=== PATIENT | female | born 1930 | race Caucasian/White ===

== ENCOUNTER 2018-01-26 13:58 | Inpatient (IN) | payer OTHER ==
--- NOTE | 2018-01-26 14:45 | PDOC ---
History of Present Illness - General Chief Complaint: Injury Stated Complaint: fall Time Seen by Provider: 01/26/18 14:01 History Source: Patient Exam Limitations: No Limitations - History of Present Illness Initial Comments: 01/26/18 14:40 87y F hx of afib on coumadin, htn, hl, aortic valve replacement presents sp fall 2 weeks ago and presents for evaluation by PMD as she has had persistent L knee pain and had some diffculty ambulating. The patient states that she was opening the refrigerator door, fell backwards hitting her head there was no LOC , another son was beside her immediately although it was not witnessed. The patient denies any prior chest pain, shortness of breath, headache, denies dizziness, focal weakness, fever, chills, back pain, urinary or bowel symptoms. The patient normally ambulates with a walker she needed some assistance to stand but she was otherwise asymptomatic, upon her head which is since resolved. The patient with a follow-up with her primary care doctor who sent the patient for evaluation. Patient denies any associated headache, dizziness, nausea, vomiting, neck pain, back pain, numbness, tingling, weakness, shortness of breath, cp, abd pain dsuria, diarrhea, frequency. pt notse some L leg pain that has been improving. PMD Dr. Lagunas Past History - Past Medical History Allergies/Adverse Reactions: Allergies Allergy/AdvReac Type Severity Reaction Status Date / Time No Known Allergies Allergy Verified 01/26/18 14:12 Home Medications: Ambulatory Orders Amlodipine Besylate [Norvasc -] 5 mg PO DAILY 01/26/18 Atorvastatin Ca [Lipitor] 20 mg PO HS 01/26/18 Lisinopril [Zestril] 5 mg PO DAILY 01/26/18 Metoprolol Tartrate [Lopressor] 50 mg PO HS 01/26/18 Metoprolol Tartrate [Lopressor] 100 mg PO DAILY 01/26/18 Warfarin Sodium [Coumadin] 2 mg PO DAILY 01/26/18 Cardiac Disorders: Yes (afib) COPD: No HTN: Yes - Surgical History Cardiac Surgery: Yes (aortic valve replacement) - Suicide/Smoking/Psychosocial Hx Smoking History: Never smoked Hx Alcohol Use: No Drug/Substance Use Hx: No Substance Use Type: None Review of Systems - Review of Systems Able to Perform ROS?: Yes Comments:: 01/26/18 14:50 Constitutional - no reported Fever, Chills, HEENT: no reported vision changes, sore throat Respiratory: no reported cough, sob, hemoptysis Cardiac: no reported chest pain, palpitations, light headedness, leg swelling Abd/GI: no reported abd pain, nausea, vomiting, blood per rectum, melena, diarrhea : no reported dysuria, frequency, discharge Musculskelatal - no reported back pain, joint swelling skin - no reported bruising, erythema, rash neurological: no reported headache, numbness, focal weakness, tingling, ataxia, hematologic: no reported easy bruising, easy bleeding *Physical Exam - Vital Signs Last Vital Signs Temp Pulse Resp BP Pulse Ox 98.1 F 85 18 141/81 100 01/26/18 13:58 01/26/18 13:58 01/26/18 13:58 01/26/18 13:58 01/26/18 13:58 - Physical Exam Comments: 01/26/18 14:51 GENERAL: The patient is awake, alert, and fully oriented, Nontoxic - in no acute distress. HEAD: Normocephalic, atraumatic. EYES: extraocular movements intact, sclera anicteric, conjunctiva clear. ENT: Normal voice, Moist mucous membranes. NECK: Normal range of motion, supple LUNGS: Breath sounds equal, clear to auscultation bilaterally. No wheezes, no rhonchi, no rales. HEART: Regular rate and rhythm, normal S1 and S2 without murmur, rub or gallop. ABDOMEN: Soft, nontender, normoactive bowel sounds. No guarding, no rebound. . No CVA tenderness EXTREMITIES: Normal range of motion, no edema. No clubbing or cyanosis. No cords, erythema, or tenderness. mild R leg weakness NEUROLOGICAL: No facial assymetry, Normal speech, PSYCH: Normal mood, normal affect. SKIN: Warm, Dry, normal turgor, Back: No midline tenderness to the cervical, thoracic or lumbar spine Musculoskelatal: FROM of b/l shoulders, elbows, wrist. FROM of hips, knees, ankles - No signs of ecchymosis, erythema, or crepitus noted on palpation extremities, chest wall, clavicals, ribs, back. mild ttp to L knee, normal ROM Moderate Sedation - Procedure Monitoring Vital Signs: Procedure Monitoring Vital Signs Temperature 98.1 F 01/26/18 13:58 Pulse Rate 85 01/26/18 13:58 Respiratory Rate 18 01/26/18 13:58 Blood Pressure 141/81 01/26/18 13:58 O2 Sat by Pulse Oximetry (%) 100 01/26/18 13:58 Heart Score/ECG Review - ECG Impressions Comment:: 01/26/18 19:37 Twelve-lead EKG was performed and reviewed by me. irrgularly irregular rate of [address] wave changes ED Treatment Course - LABORATORY CBC & Chemistry Diagram: 01/26/18 16:06 01/26/18 16:06 Medical Decision Making - Critical Care Time Total Critical Care Time (minutes): 35 Critical Care Statement: The care of this patient involved high complexity decision making to prevent further life threatening deterioration of the patient 's condition and/or to evaluate & treat vital organ system(s) failure or risk of failure. - Medical Decision Making 01/26/18 14:52 87y F hx of afib on coumadin persents s/p fall 2 weeks ago, sent to ED for evaluation sp fall. The pt has no complaints otherwise denies any headache, n/v , numbness/tingling/weakness, pain of any sort. son endorses pt has diffulty walking due to disocmfort in the L knee but has been getting beter. will btain ct head, ekg, ua will reaessess, anticpate dc with pmd fu 01/26/18 16:[address] shows a large subdural with shift pt neuro intact suspect chronic there is a small acute area of blood will obtain labs and INR case dw dr Lagunas will admit for further mangaement will admit under dr. Wong service requests consultation with dr. Burton 01/26/18 17:55 the pts INR elevated to 4 will reverse with vitamin K and FFP will admit for further management to ICU at [facility] 01/26/18 18:[address] osei agree with admission for further management awaiting cb from dr. burton 01/26/18 19:[address] burton agree with admission and reversal of INR 01/26/18 19:[address] damon (ICU) agree with admission and accepted to ICU pt still currently asymptomatic unchanged neuro status *DC/Admit/Observation/Transfer Diagnosis at time of Disposition: Elevated INR Subdural hematoma, post-traumatic Qualifiers: Encounter type: initial encounter Loss of consciousness presence/duration: without LOC Qualified Code(s): S06.5X0A - Traumatic subdural hemorrhage without loss of consciousness, initial encounter Atrial fibrillation Qualifiers: Atrial fibrillation type: chronic Qualified Code(s): I48.2 - Chronic atrial fibrillation - Discharge Dispostion Condition at time of disposition: Critical Decision to Admit order: Yes - Referrals Referrals: Terrance See MD [Primary Care Provider] - - Patient Instructions - Post Discharge Activity NIH Stroke Scale - Last Known Well Date/Time & Onset Date Last Known Well: 01/11/18 - Initial Evaluation Level of consciousness: Alert Ask patient the month and their age: Answers both correctly Ask patient to open & close eyes; make fist and let go: Obeys both correctly Best gaze (horizontal eye movement): Normal Visual field testing: No visual field loss Facial paresis (Show teeth/raise eyebrows/close eyes tight): Normal symmetrical movement Motor Function: Left Arm: Normal Motor Function: Right Arm: Normal (extends arm 90 (or 45) degrees for 10 seconds without drift Motor Function: Left Leg: Normal (extends leg 30 degrees for 5 seconds without drift) Motor Function: Right Leg: Drift Limb Ataxia: No ataxia Sensory(Use pinprick test arms,legs,trunk,face/side to side): Normal Best language (Describe picture, name items, read sentences): No Aphasia Dysarthria (read several words): Normal articulation Extinction and Inattention: No abnormality - Total Score NIH Stroke Scale Score: 1
[2018-01-26 15:54] LABS: URINE APPEARANCE Clear; URINE BILIRUBIN Negative (NEGATIVE); URINE COLOR Amber; URINE GLUCOSE (UA) Negative (NEGATIVE); URINE KETONE Negative (NEGATIVE); URINE LEUK ESTERASE 1+ (NEGATIVE); URINE NITRITE Negative (NEGATIVE); URINE PROTEIN Negative (NEGATIVE); URINE UROBILINOGEN 0.2 (0.2-1.0)
[2018-01-26 17:31] LABS: BASO % 0.6 % (0-2.0); EOS % 1.5 % (0-4.5); HEMATOCRIT 40.8 % (32.4-45.2); HEMOGLOBIN 13.2 GM/dl (10.7-15.3); LYMPH % 28.3 % (8-40); MCH 25.3 pg (25.7-33.7); MCHC 32.2 g/dl (32.0-36.0); MEAN CELL VOLUME 78.6 fl (80-96); MONO % 7.5 % (3.8-10.2); NEUT % 62.1 % (42.8-82.8); PLATELET COUNT 266 K/MM3 (134-434); PROTHROMBIN TIME (PATIENT) 46.2 SEC (10.2-13.0); RBC 5.19 M/mm3 (3.60-5.2); RDW 16.6 % (11.6-15.6); WHITE BLOOD COUNT 7.5 K/mm3 (4.0-10.8)
[2018-01-26 17:32] LABS: INR 4.24 (0.82-1.09)
[2018-01-26 17:36] LABS: ALBUMIN 3.2 g/dl (3.5-5.0); ALK PHOS 98 U/L (32-92); ANION GAP 6 MMOL/L (8-16); BILIRUBIN,TOTAL 0.4 mg/dl (0.2-1.0); BLOOD UREA NITROGEN 23 mg/dl (7-18); CALCIUM 8.8 mg/dl (8.4-10.2); CHLORIDE 100 mmol/L (98-107); CO2 27 mmol/L (22-28); CREATININE 0.9 mg/dl (0.6-1.3); GLUCOSE,RANDOM 91 mg/dl (74-106); POTASSIUM 4.5 mmol/L (3.5-5.1); SGOT/AST 17 U/L (10-42); SGPT/ALT 15 U/L (10-40); SODIUM 133 mmol/L (136-145); TOT PROT 6.8 g/dl (6.4-8.3)
[2018-01-26 17:45] LABS: EPI CELLS FEW /HPF; URINE BACTERIA 3+ /hpf (NEGATIVE); URINE WBC 20-40 (0-5)
[2018-01-26] MEDS ORDERED: PHYTONADIONE 10 MG/1 ML AMP IVPB ONE (17:54)
[2018-01-26] MEDS ORDERED: PHYTONADIONE 10 MG/1 ML AMP ONE (18:19)
--- NOTE | 2018-01-26 23:42 | CONSULT ---
Consult Consult Specialty:: Critical Care Referred by:: Dr. Kumar Reason for Consultation:: Subdural hematoma - History of Present Illness Chief Complaint: left knee pain History of Present Illness: 87F with history of HTN HLD A fib on coumadin aortic valve replacement (Porcine valve per grandson) presents to the [facility] ER at the direction of her PMD Dr. Lagunas for left knee pain and difficulty ambulating. Per Sons and grandsons , who were at bedside helping give the HPI and translate for the patient, she fell 2 weeks ago while trying to open the fridge door. She fell backwards and hit her head. She denies LOC or symptoms of syncope. She did have a bump on the back of her head which has since resolved. She denies nausea vomiting fever chills chest pain SOB blurry vision headaches or urinary symptoms now and at the time of the fall. 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 She was also noted to have a supratherapeutic INR and was given 5mg IVPB Vitamin K and FFP ordered but not given. Per ER chart Dr. Degroot was contacted and he agrees with reversal of INR and ICU admission. Per grandsons and sons she has been getting progressively weaker lately. They can not remember exactly when but in the last few weeks she had an episode where she had trouble finding her words when she woke up in the morning but resolved within a few minutes. She has had trouble ambulating especially in the last couple of weeks. She needs a walker for assistance. The left leg pain has been improving. Patient transferred to [facility] ICU for further management. - History Source History Provided By: Patient, Family Member Limitations to Obtaining History: Language Barrier - Past Medical History Cardio/Vascular: Yes: AFIB (on coumadin), Aortic Stenosis (? s/p bovine AVR), HTN, Hyperlipdemia - Past Surgical History Past Surgical History: Yes: Mastectomy (left), Valve Replacement (aortic ( procine)) - Alcohol/Substance Use Hx Alcohol Use: No - Smoking History Smoking history: Never smoked Home Medications - Allergies Allergies/Adverse Reactions: Allergies Allergy/AdvReac Type Severity Reaction Status Date / Time No Known Allergies Allergy Verified 01/26/18 14:12 - Home Medications Home Medications: Ambulatory Orders Amlodipine Besylate [Norvasc -] 5 mg PO DAILY 01/26/18 Atorvastatin Ca [Lipitor] 20 mg PO HS 01/26/18 Lisinopril [Zestril] 5 mg PO DAILY 01/26/18 Metoprolol Tartrate [Lopressor] 50 mg PO HS 01/26/18 Metoprolol Tartrate [Lopressor] 100 mg PO DAILY 01/26/18 Warfarin Sodium [Coumadin] 2 mg PO DAILY 01/26/18 Family Disease History - Family Disease History Family History: Unable to Obtain (cant remember) Review of Systems - Review of Systems Constitutional: reports: Weakness Eyes: denies: Blurred Vision, Double Vision, Photophobia, Recent Change in Vision HENT: reports: No Symptoms Neck: reports: No Symptoms Cardiovascular: reports: No Symptoms Respiratory: reports: No Symptoms Gastrointestinal: reports: No Symptoms Genitourinary: reports: No Symptoms Breasts: reports: No Symptoms Reported Musculoskeletal: reports: Muscle Weakness Integumentary: reports: No Symptoms Neurological: reports: Weakness. denies: Change in LOC, Change in Speech, Confusion, Dizziness, Syncope Endocrine: reports: No Symptoms Hematology/Lymphatic: reports: No Symptoms Psychiatric: reports: No Symptoms Physical Exam Vital Signs: Vital Signs Temperature 98.1 F 01/26/18 13:58 Pulse Rate 68 01/26/18 22:44 Respiratory Rate 14 01/26/18 22:44 Blood Pressure 130/70 01/26/18 22:44 O2 Sat by Pulse Oximetry (%) 96 01/26/18 19:59 Constitutional: Yes: No Distress, Calm, Obese Eyes: Yes: Conjunctiva Clear, EOM Intact, PERRL, Other (senile arcus bilaterally ) HENT: Yes: Atraumatic, Normocephalic Neck: Yes: Supple, Trachea Midline Cardiovascular: Yes: Pulse Irregular, Murmur (3/6 systolic) Respiratory: Yes: CTA Bilaterally Gastrointestinal: Yes: Normal Bowel Sounds, Soft. No: Tenderness Renal/: No: CVA Tenderness - Left, CVA Tenderness - Right Breast(s): Yes: Left (mastectomy) Edema: RLE: Trace Neurological: Yes: Alert, Cran Nerves II-XII Intact (sensation in the face is intact CN V1 V2 V3. upper and lower extremities sensation intact. upper extremity strength 4/5 for hand ring facer and movement at the elbow and shoulder joint. 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 h/o left breast Ca s/p left mastectomy ? aortic stenosis s/p porcine AVR (family unsure why she had valve replaced) UTI Plan: Admit to ICU s/p 5mg IV vitamin K Will give FFP-4 units ordered by ER but not given yet. Will give now Trend INR Neurosurgery consult Repeat Head CT in AM Keppra 500mg po BID for seizure prophylaxis frequent Neurovascular checks STAT head CT if acute change in mental status UA mildly positive. Will give ceftriaxone after urine culture sent first. Restart home medications Restart Statin -lipitor 20mg po daily restart antihypertensives-norvasc 5mg po daily and lisinopril 5mg po daily Restart metoprolol (Med list given by family shows Metoprolol 100mg po daily and 50mg po HS but Dr. Lagunas ordered 50mg po BID)-will need to be confirmed Hold coumadin rate control PT consult Consider Echo place on 3L nasal cannula as saturation 88-90% on room air. Case discussed with Dr. Spencer CCTime 60min
[2018-01-27 00:27] VITALS: BMI 42.7
[2018-01-27] MEDS: levETIRAcetam 500 MG TABLET (FP) PO SCH ×3 (00:30→21:31)
[2018-01-27] MEDS: METOPROLOL TARTRATE 50 MG TABLET (FP) PO SCH ×3 (00:30→21:31)
[2018-01-27] MEDS: CEFTRIAXONE 1 GM in DEXTROSE 5%-WATER - 50 ML IVPB SCH ×2 (00:40→17:16)
[2018-01-27] MEDS ORDERED: DEXTROSE 5%-WATER - 50 ML IVPB ONE ×2 (01:18→09:50)
[2018-01-27] MEDS ORDERED: cefTRIAXone SODIUM 1 GM VIAL ONE ×2 (01:18→09:50)
[2018-01-27 07:33] LABS: INR 1.23 (0.83-1.09); PROTHROMBIN TIME (PATIENT) 14.6 SEC (9.7-13.0)
[2018-01-27 07:36] LABS: ACTIVATED PTT 28.3 SECONDS (25.2-36.5)
--- NOTE | 2018-01-27 08:10 | PN ---
Physical Exam: SUBJECTIVE: Patient seen and examined at bedside. No acute events overnight. Pt awake and responding to commands. OBJECTIVE: Vital Signs Period Temp Pulse Resp BP Sys/Taylor Pulse Ox Last 24 Hr 97.2 F-98.1 F 68-105 14-19 111-141/61-84 95-100 GENERAL: NAD. Resting comfortably. HEENT: AT/NC. EOMI. KATYA. Dry mucus membranes. Chronic L lid droops. Facial muscles intact. NECK: Trachea midline, full range of motion, supple. LUNGS: Decreased b/l lung sounds. No wheezes noted. HEART: Irregularly irregular. CHEST: L mastectomy. ABDOMEN: Soft, nontender, nondistended, normoactive bowel sounds, no guarding, no rebound, no hepatosplenomegaly, no masses. EXTREMITIES: 2+ pulses, warm, well-perfused, no edema. PSYCH: Normal mood, normal affect. SKIN: Warm, dry, normal turgor, no rashes or lesions noted Laboratory Results - last 24 hr 01/26/18 01/26/18 01/26/18 15:47 16:06 16:06 WBC 7.5 RBC 5.19 Hgb 13.2 Hct 40.8 MCV 78.6 L MCH 25.3 L MCHC 32.2 RDW 16.6 H Plt Count 266 MPV 9.0 Absolute Neuts (auto) 4.7 Neutrophils % 62.1 Lymphocytes % 28.3 Monocytes % 7.5 Eosinophils % 1.5 Basophils % 0.6 PT with INR 46.2 H INR 4.24 H* PTT (Actin FS) Sodium Potassium Chloride Carbon Dioxide Anion Gap BUN Creatinine Creat Clearance w eGFR Random Glucose Calcium Total Bilirubin AST ALT Alkaline Phosphatase Total Protein Albumin Urine Color Josie Urine Appearance Clear Urine pH 7.0 Ur Specific [place] 1.015 Urine Protein Negative Urine Glucose (UA) Negative Urine Ketones Negative Urine Blood Trace-lysed H Urine Nitrite Negative Urine Bilirubin Negative Urine Urobilinogen 0.2 Ur Leukocyte Esterase 1+ H Urine RBC 2-5 Urine WBC 20-40 Ur Epithelial Cells Few Urine Bacteria 3+ Blood Type Antibody Screen 01/26/18 01/26/18 01/27/18 16:06 16:06 06:50 WBC RBC Hgb Hct MCV MCH MCHC RDW Plt Count MPV Absolute Neuts (auto) Neutrophils % Lymphocytes % Monocytes % Eosinophils % Basophils % PT with INR 14.60 H INR 1.23 H PTT (Actin FS) 28.3 Sodium 133 L Potassium 4.5 Chloride 100 Carbon Dioxide 27 Anion Gap 6 L BUN 23 H Creatinine 0.9 Creat Clearance w eGFR 59.09 Random Glucose 91 Calcium 8.8 Total Bilirubin 0.4 AST 17 ALT 15 Alkaline Phosphatase 98 H Total Protein 6.8 Albumin 3.2 L Urine Color Urine Appearance Urine pH Ur Specific [place] Urine Protein Urine Glucose (UA) Urine Ketones Urine Blood Urine Nitrite Urine Bilirubin Urine Urobilinogen Ur Leukocyte Esterase Urine RBC Urine WBC Ur Epithelial Cells Urine Bacteria Blood Type B POSITIVE Antibody Screen Negative Active Medications Generic Name Dose Route Start Last Admin Trade Name Freq PRN Reason Stop Dose Admin Amlodipine Besylate 5 mg 01/27/18 10:00 Norvasc - PO DAILY [facility] Atorvastatin Calcium 20 mg 01/27/18 22:00 Lipitor - PO HS [facility] Chlorhexidine Gluconate 1 applic 01/27/18 22:00 Hibiclens For Decolonization - TP HS [facility] Ceftriaxone Sodium 1 gm/ 50 mls @ 100 mls/hr 01/27/18 01:00 01/27/18 00:40 Dextrose IVPB 100 mls/hr DAILY [facility] Administration Levetiracetam 500 mg 01/27/18 00:30 01/27/18 00:30 Keppra - PO 500 mg BID [facility] Administration Lisinopril 5 mg 01/27/18 10:00 Prinivil PO DAILY [facility] Metoprolol Tartrate 50 mg 01/27/18 00:15 01/27/18 00:30 Lopressor - PO 50 mg BID [facility] Administration Metoprolol Tartrate 50 mg 01/27/18 22:00 Lopressor - PO HS [facility] Mupirocin 1 applic 01/27/18 10:00 Bactroban Ointment (For Decolonization) - NS 02/01/18 09:59 BID [facility] Non-Formulary Medication 100 mg 01/27/18 10:00 Metoprolol Tartrate [Lopressor] PO DAILY [facility] ASSESSMENT/PLAN: 87F w/ pmhx of caitlin jennifer (on Coumadin), HTN, HLD, aortic valve replacement admitted to the ICU for subdural hematoma s/p fall 2 week ago. Neurology #Subdural Hematoma -At baseline mental status. Chronic L lid droop, however no other neurological deficits noted. -Dr. Degroot consulted with request by family for second opinion by Dr. Prado. -Scheduled for OR tomorrow morning -NPO after midnight -Neuro checks Q6H -Keppra 500 BID for seizure ppx -repeat head CT if mental status changes Pulmonary -3L NC. Cardiology #Atrial fibrillation -cont Metoprolol for rate control -hold Coumadin -Cardio consulted -consider echo #supratherapeutic INR -s/p Vit K 5 mg, FFP 4U. Resolved. -INR now 1.23 #HTN -Lisinopril 5 QD #HLD -Atorvastatin 20 HS Renal #UTI -U/A showed 1+ LE, WBC 20-40s -UCx ordered, will give Ceftriaxone if (+) Hematology #Anemia -Fe/TIBC/Ferritin/B12 ordered -Hgb 10.3, recheck Hgb in AM FEN -no IVf needed -recheck lytes in AM, replete PRN -NPO after midnight dispo -full code -cont to monitor in ICU Visit type - Emergency Visit Emergency Visit: Yes ED Registration Date: 01/26/18 Care time: The patient presented to the Emergency Department on the above date and was hospitalized for further evaluation of their emergent condition. - New Patient This patient is new to me today: Yes Date on this admission: 01/27/18 - Critical Care Critical Care patient: Yes Total Critical Care Time (in minutes): 40 Critical Care Statement: The care of this patient involved high complexity decision making to prevent further life threatening deterioration of the patient 's condition and/or to evaluate & treat vital organ system(s) failure or risk of failure.
[2018-01-27 08:37] LABS: ALK PHOS 101 U/L (45-117); ANION GAP 6 MMOL/L (8-16); BILIRUBIN,TOTAL 0.5 mg/dL (0.2-1); BLOOD UREA NITROGEN 20 mg/dL (7-18); CALCIUM 8.4 mg/dL (8.5-10.1); CHLORIDE 102 mmol/L (98-107); CO2 32 mmol/L (21-32); CREATININE 0.8 mg/dL (0.55-1.3); GLUCOSE,RANDOM 94 mg/dL (74-106); MAGNESIUM 2.5 mg/dL (1.8-2.4); PHOSPHOROUS 3.9 mg/dL (2.5-4.9); POTASSIUM 3.9 mmol/L (3.5-5.1); SGOT/AST 25 U/L (15-37); SGPT/ALT 25 U/L (13-61); SODIUM 139 mmol/L (136-145); TOT PROT 6.7 g/dl (6.4-8.2)
[2018-01-27 08:55] LABS: HEMATOCRIT 32.7 % (32.4-45.2); HEMOGLOBIN 10.3 GM/dL (10.7-15.3); MCH 24.3 pg (25.7-33.7); MCHC 31.6 g/dl (32.0-36.0); MEAN CELL VOLUME 76.8 fl (80-96); MEAN PLT VOLUME 8.3 fl (7.5-11.1); PLATELET COUNT 179 K/MM3 (134-434); RBC 4.26 M/mm3 (3.60-5.2); RDW 17.6 % (11.6-15.6); WHITE BLOOD COUNT 6.4 K/mm3 (4.0-10.0)
[2018-01-27] MEDS ORDERED: MUPIROCIN 2% TOPICAL OINTMENT FOR DECOLONIZATION NS SCH (10:00)
[2018-01-27] MEDS ORDERED: LISINOPRIL 5 MG TABLET (FP) PO SCH (10:00)
[2018-01-27] MEDS ORDERED: PATIENT'S OWN MEDICATION (NON-FORMULARY) (Metoprolol Tartrate [Lopressor] 100 MG) PO SCH (10:00)
[2018-01-27] MEDS ORDERED: amLODIPine BESYLATE 5 MG TABLET (FP) PO SCH (10:00)
--- NOTE | 2018-01-27 10:09 | SPA.PREOP ---
- PRE-OP NOTE Dx: left subdural hematoma Planned Procedure: cranioostomy, possible craniotomy Surgeon: Dr. Degroot Last Vital Signs Temp Pulse Resp BP Pulse Ox 97.2 F L 90 18 149/76 96 01/27/18 06:15 01/27/18 08:00 01/27/18 08:00 01/27/18 08:00 01/26/18 19:59 Lab Results WBC 6.4 K/mm3 (4.0-10.0) 01/27/18 06:50 RBC 4.26 M/mm3 (3.60-5.2) 01/27/18 06:50 Hgb 10.3 GM/dL (10.7-15.3) L 01/27/18 06:50 Hct 32.7 % (32.4-45.2) D 01/27/18 06:50 MCV 76.8 fl (80-96) L 01/27/18 06:50 MCHC 31.6 g/dl (32.0-36.0) L 01/27/18 06:50 RDW 17.6 % (11.6-15.6) H 01/27/18 06:50 Plt Count 179 K/MM3 (134-434) D 01/27/18 06:50 Sodium 139 mmol/L (136-145) 01/27/18 06:50 Potassium 3.9 mmol/L (3.5-5.1) 01/27/18 06:50 Chloride 102 mmol/L (98-107) 01/27/18 06:50 Carbon Dioxide 32 mmol/L (21-32) 01/27/18 06:50 Anion Gap 6 MMOL/L (8-16) L 01/27/18 06:50 BUN 20 mg/dL (7-18) H 01/27/18 06:50 Creatinine 0.8 mg/dL (0.55-1.3) 01/27/18 06:50 Random Glucose 94 mg/dL (74-106) 01/27/18 06:50 Calcium 8.4 mg/dL (8.5-10.1) L 01/27/18 06:50 Blood Type B POSITIVE 01/26/18 16:06 Antibody Screen Negative 01/26/18 16:06 INR 1.23 (0.83-1.09) H 01/27/18 06:50 CT Scan: Left frontal, parital, temporal convex Subdural hematoma with contalateral midline displacement(0.4cm) - ASSESSMENT/PLAN 1. Make NPO after midnight except po meds 2. Medical optimization / clearance
--- NOTE | 2018-01-27 10:13 | EKG ---
Test Reason : Blood Pressure : / mmHG Vent. Rate : 094 BPM Atrial Rate : 105 BPM P-R Int : 000 ms QRS Dur : 074 ms QT Int : 330 ms P-R-T Axes : 000 -07 -07 degrees QTc Int : 412 ms ATRIAL FIBRILLATION WITH A COMPETING JUNCTIONAL PACEMAKER NONSPECIFIC ST ABNORMALITY ABNORMAL ECG WHEN COMPARED WITH ECG OF 21-DEC-2010 17:30, NONSPECIFIC T WAVE ABNORMALITY NO LONGER EVIDENT IN ANTERIOR LEADS Confirmed by JAILENE EDMONDSON, ABBIE ([id number]) on 01/27/2018 10:13:03 AM Referred By: DR NOLASCO Confirmed By:ABBIE DNET MD
--- NOTE | 2018-01-27 11:29 | HP ---
Admitting History and Physical - Primary Care Physician PCP: Mustapha Benavides (cover for Dr See) - Admission Chief Complaint: weakness History of Present Illness: 87y F hx of afib (on coumadin), htn, s/p old aortic valve replacement who is s/ p fall 2 weeks ago and presents for evaluation by PMD as she has had persistent L knee pain and had some difficulty ambulating. The patient states that she was opening the refrigerator door, fell backwards hitting her head. There was no report of LOC, as her son was beside her immediately although it was not witnessed. They did not seek medical attention at the time of the incident. The patient denied any prior chest pain, shortness of breath, headache, denies dizziness, focal weakness, fever, chills, back pain, urinary or bowel symptoms. The patient normally ambulates with a walker she needed some assistance to stand but she was otherwise asymptomatic. The patient had a f/u visit with her primary care doctor who sent the patient to the ER for evaluation because of c/ o some weakness and difficulty walking due to LLE pain. 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 s/p bovine AVR), HTN , Hyperlipdemia Heme/Onc: Yes: Other (old breast cancer; s/p mastectomy) Musculoskeletal: Yes: Osteoarthritis - Past Surgical History Past Surgical History: Yes: Mastectomy (left), Valve Replacement (aortic ( procine)) - Smoking History Smoking history: Never smoked - Alcohol/Substance Use Hx Alcohol Use: No - Social History Usual Living Arrangement: Yes: With Child ADL: Family Assistance History of Recent Travel: No Home Medications - Allergies Allergies/Adverse Reactions: Allergies Allergy/AdvReac Type Severity Reaction Status Date / Time No Known Allergies Allergy Verified 01/26/18 14:12 - Home Medications Home Medications: Ambulatory Orders Amlodipine Besylate [Norvasc -] 5 mg PO DAILY 01/26/18 Atorvastatin Ca [Lipitor] 20 mg PO HS 01/26/18 Lisinopril [Zestril] 5 mg PO DAILY 01/26/18 Metoprolol Tartrate [Lopressor] 50 mg PO HS 01/26/18 Metoprolol Tartrate [Lopressor] 100 mg PO DAILY 01/26/18 Warfarin Sodium [Coumadin] 2 mg PO DAILY 01/26/18 Family Disease History - Family Disease History Family History: Unremarkable Review of Systems Findings/Remarks: unable to obtain due to poor mentation Physical Examination Vital Signs: Vital Signs Temperature 97.6 F 01/27/18 10:00 Pulse Rate 79 01/27/18 10:00 Respiratory Rate 18 01/27/18 10:00 Blood Pressure 124/75 01/27/18 10:00 O2 Sat by Pulse Oximetry (%) 97 01/27/18 09:00 Constitutional: Yes: No Distress Eyes: Yes: Conjunctiva Clear, EOM Intact Neck: Yes: Supple Cardiovascular: Yes: Pulse Irregular Respiratory: Yes: Diminished Gastrointestinal: Yes: Normal Bowel Sounds, Soft ...Rectal Exam: Yes: Deferred Renal/: Yes: WNL Breast(s): Yes: Left (mastectomy) Musculoskeletal: Yes: Other (contracture fingers; L>R; degen changes) Edema: No Peripheral Pulses WNL: No Peripheral Pulses: Left Doralis Pedis: 2+, Right Dorsalis Pedis: 1+ Integumentary: Yes: WNL, Other (stasis derm of LE's) Neurological: Yes: Weakness, Other (drowsy but rousable; seems to moves all extrem on command; good tone; good eye contact; able to speak; Rt toes down; Lt toe up going) Psychiatric: Yes: Alert Labs: CBC, BMP 01/27/18 06:50 01/27/18 06:50 CBCD WBC 6.4 K/mm3 (4.0-10.0) 01/27/18 06:50 RBC 4.26 M/mm3 (3.60-5.2) 01/27/18 06:50 Hgb 10.3 GM/dL (10.7-15.3) L 01/27/18 06:50 Hct 32.7 % (32.4-45.2) D 01/27/18 06:50 MCV 76.8 fl (80-96) L 01/27/18 06:50 MCHC 31.6 g/dl (32.0-36.0) L 01/27/18 06:50 RDW 17.6 % (11.6-15.6) H 01/27/18 06:50 Plt Count 179 K/MM3 (134-434) D 01/27/18 06:50 MPV 8.3 fl (7.5-11.1) 01/27/18 06:50 CMP Sodium 139 mmol/L (136-145) 01/27/18 06:50 Potassium 3.9 mmol/L (3.5-5.1) 01/27/18 06:50 Chloride 102 mmol/L (98-107) 01/27/18 06:50 Carbon Dioxide 32 mmol/L (21-32) 01/27/18 06:50 Anion Gap 6 MMOL/L (8-16) L 01/27/18 06:50 BUN 20 mg/dL (7-18) H 01/27/18 06:50 Creatinine 0.8 mg/dL (0.55-1.3) 01/27/18 06:50 Creat Clearance w eGFR > 60 (>60) 01/27/18 06:50 Random Glucose 94 mg/dL (74-106) 01/27/18 06:50 Calcium 8.4 mg/dL (8.5-10.1) L 01/27/18 06:50 Total Bilirubin 0.5 mg/dL (0.2-1) 01/27/18 06:50 AST 25 U/L (15-37) 01/27/18 06:50 ALT 25 U/L (13-61) 01/27/18 06:50 Alkaline Phosphatase 101 U/L (45-117) 01/27/18 06:50 Total Protein 6.7 g/dl (6.4-8.2) 01/27/18 06:50 Albumin 3.0 g/dl (3.4-5.0) L 01/27/18 06:50 Urine Test Results Urine Color Josie 01/26/18 15:47 Urine Appearance Clear 01/26/18 15:47 Urine pH 7.0 (4.5-8) 01/26/18 15:47 Ur Specific [place] 1.015 (1.010-1.035) 01/26/18 15:47 Urine Protein Negative (NEGATIVE) 01/26/18 15:47 Urine Glucose (UA) Negative (NEGATIVE) 01/26/18 15:47 Urine Ketones Negative (NEGATIVE) 01/26/18 15:47 Urine Blood Trace-lysed (NEGATIVE) H 01/26/18 15:47 Urine Nitrite Negative (NEGATIVE) 01/26/18 15:47 Urine Bilirubin Negative (NEGATIVE) 01/26/18 15:47 Ur Leukocyte Esterase 1+ (NEGATIVE) H 01/26/18 15:47 Urine RBC 2-5 /hpf (0-3) 01/26/18 15:47 Urine WBC 20-40 (0-5) 01/26/18 15:47 Ur Epithelial Cells Few /HPF 01/26/18 15:47 Urine Bacteria 3+ /hpf (NEGATIVE) 01/26/18 15:47 Imaging - Results Chest X-ray: Report Reviewed Cat Scan: Report Reviewed EKG: Report Reviewed Problem List - Problems (1) Subdural hematoma, post-traumatic Assessment/Plan: acute & chronic; a/c stopped; surg procedure planned Code(s): S06.5X9A - TRAUM SUBDR HEM W LOC OF UNSP DURATION, INIT Qualifiers: Encounter type: initial encounter Loss of consciousness presence/duration: without LOC Qualified Code(s): S06.5X0A - Traumatic subdural hemorrhage without loss of consciousness, initial encounter (2) Atrial fibrillation Assessment/Plan: rate seems controlled; a/c stopped. Jescia get cardiology consult as she exhibits "junctional" beats as well Code(s): I48.91 - UNSPECIFIED ATRIAL FIBRILLATION Qualifiers: Atrial fibrillation type: chronic Qualified Code(s): I48.2 - Chronic atrial fibrillation (3) HTN (hypertension) Assessment/Plan: BP in range Code(s): I10 - ESSENTIAL (PRIMARY) HYPERTENSION Qualifiers: Hypertension type: unspecified Qualified Code(s): I10 - Essential (primary ) hypertension (4) Aortic valve replaced Assessment/Plan: has been on a/c; but must now suspend 2nd SDH Code(s): Z95.2 - PRESENCE OF PROSTHETIC HEART VALVE (5) History of breast cancer in female Assessment/Plan: s/p mastectomy; inactive. Code(s): Z85.3 - PERSONAL HISTORY OF MALIGNANT NEOPLASM OF BREAST (6) Bacteria in urine Assessment/Plan: will need to get culture; start IV Abs Code(s): R82.71 - BACTERIURIA (7) History of CVA in adulthood Assessment/Plan: head CT reveals multiple BG and cerebellar infarcts; likely 2nd ATF Code(s): Z86.73 - PRSNL HX OF TIA (TIA), AND CEREB INFRC W/O RESID DEFICITS (8) Left knee pain Assessment/Plan: unsure if she injured it 2nd to stated fall; or if it had been present before the incident; Xray does not reveal any Fx Code(s): M25.562 - PAIN IN LEFT KNEE Qualifiers: Chronicity: unspecified Qualified Code(s): M25.562 - Pain in left knee (9) Mobility impaired Assessment/Plan: uses assistive device; sustained fall as described; circumstances unknown Code(s): Z74.09 - OTHER REDUCED MOBILITY (10) Lipidemia Assessment/Plan: WILL CONT STATIN Code(s): E78.5 - HYPERLIPIDEMIA, UNSPECIFIED Qualifiers: Hyperlipidemia type: unspecified Qualified Code(s): E78.5 - Hyperlipidemia , unspecified (11) Anemia Assessment/Plan: mild; unknown if acute or chronic; will due iron studies/B12 Code(s): D64.9 - ANEMIA, UNSPECIFIED Qualifiers: Anemia type: unspecified type Qualified Code(s): D64.9 - Anemia, unspecified (12) Anemia Code(s): D64.9 - ANEMIA, UNSPECIFIED Assessment/Plan 87 YO ambulatory F who sustained sizable SD hematoma 2nd to fall at home approx 2 weeks ago; and now to undergo surg evacuation ~~~~~~~~~~~~~~~~~~~~~~~~ Dr Benavides
--- NOTE | 2018-01-27 12:16 | PN ---
Teaching Attending Note Name of Resident: Kelly Butler ATTENDING PHYSICIAN STATEMENT I saw and evaluated the patient. I reviewed the resident's note and discussed the case with the resident. I agree with the resident's findings and plan as documented. SUBJECTIVE: Pt seen and examined in the ICU. No current complaints. ?left lid droop. Repeat CT head unchanged. OBJECTIVE: Vital Signs Period Temp Pulse Resp BP Sys/Taylor Pulse Ox Last 24 Hr 97.2 F-98.1 F 68-105 14-19 111-149/61-84 95-100 Intake & Output 01/24/18 01/25/18 01/26/18 01/27/18 23:59 23:59 23:59 23:59 Intake Total 1264 Output Total 150 800 Balance -150 464 Weight 63.503 kg 67.132 kg Gen: NAD at rest Heart: irreuglar Lung: decreased breath sounds at the bases Abd: soft, nontender Ext: no edema CBC, BMP 01/27/18 06:50 01/27/18 06:50 Active Medications Amlodipine Besylate (Norvasc -) 5 mg PO DAILY [facility] Last Admin: 01/27/18 09:55 Dose: 5 mg Atorvastatin Calcium (Lipitor -) 20 mg PO HS [facility] Chlorhexidine Gluconate (Hibiclens For Decolonization -) 1 applic TP HS [facility] Ceftriaxone Sodium 1 gm/ (Dextrose) 50 mls @ 100 mls/hr IVPB DAILY [facility] Last Admin: 01/27/18 00:40 Dose: 100 mls/hr Levetiracetam (Keppra -) 500 mg PO BID [facility] Last Admin: 01/27/18 09:55 Dose: 500 mg Lisinopril (Prinivil) 5 mg PO DAILY [facility] Last Admin: 01/27/18 09:56 Dose: 5 mg Metoprolol Tartrate (Lopressor -) 50 mg PO BID [facility] Last Admin: 01/27/18 09:56 Dose: 50 mg Metoprolol Tartrate (Lopressor -) 50 mg PO HS [facility] Mupirocin (Bactroban Ointment (For Decolonization) -) 1 applic NS BID [facility] Stop: 02/01/18 09:59 Last Admin: 01/27/18 09:56 Dose: 1 applic Non-Formulary Medication (Metoprolol Tartrate [Lopressor]) 100 mg PO DAILY [facility] ASSESSMENT AND PLAN: s/p Fall Acute on Chronic Left Subdural Hematoma Atrial Fibrillation Supratherapeutic INR HTN Hyperlipidemia UTI Aortic Stenosis s/p AVR h/o Breast Ca - continue antibiotics - f/u cultures - neuro checks - on empiric antiepileptics - for evacuation by neurosurgery - DVT prophylaxis - continue ICU monitoring
--- NOTE | 2018-01-27 16:01 | CON.CARD ---
Consult Consult Specialty:: Cardiology Referred by:: Hospitalist Medicine Reason for Consultation:: Afib - History of Present Illness Chief Complaint: Subdural hematoma History of Present Illness: 87-year-old female of /[place] descent with known history of aortic valve disease aortic valve stenosis status post aortic valve replacement Bio- prosthesis performed November 22, 2003 (21 mm Toan-Edward's bovine pericardial valve), negative left heart cardiac catheterization coronary angiography for coronary artery disease August 31, 2003, diastolic left ventricular dysfunction with chronic class 0-I [place] Heart [employer] classification left ventricular failure, persistent atrial fibrillation on chronic anticoagulation therapy with Coumadin [id number] score of 5, mitral valve regurgitation mild in severity of no clinical significance on echocardiography performed April 28, 2014, tricuspid valve regurgitation mild in severity with RVSP of 32 mmHg on echocardiography performed April and 44 mmHg on echocardiography performed November 26, 2012 consistent with mild to moderate degree of pulmonary hypertension, hypertensive cardiovascular disease, hypercholesterolemia, carotid stenosis moderate in severity on carotid Doppler study performed April 28, 2014, breast carcinoma post mastectomy and degenerative joint disease found to have post-traumatic subdural hematoma when she reported left knee pain and difficulty ambulating. The patient denied any prior chest pain, shortness of breath, headache, denies dizziness, focal weakness, fever, chills, back pain, urinary or bowel symptoms. The patient normally ambulates with a walker she needed some assistance to stand but she was otherwise asymptomatic. 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 s/p bovine AVR), HTN, Hyperlipdemia Musculoskeletal: Yes: Osteoarthritis - Past Surgical History Past Surgical History: Yes: Mastectomy (left), Valve Replacement (aortic ( procine)) - Alcohol/Substance Use Hx Alcohol Use: No - Smoking History Smoking history: Never smoked - Social History ADL: Family Assistance History of Recent Travel: No Home Medications - Allergies Allergies/Adverse Reactions: Allergies Allergy/AdvReac Type Severity Reaction Status Date / Time No Known Allergies Allergy Verified 01/26/18 14:12 - Home Medications Home Medications: Ambulatory Orders Amlodipine Besylate [Norvasc -] 5 mg PO DAILY 01/26/18 Atorvastatin Ca [Lipitor] 20 mg PO HS 01/26/18 Lisinopril [Zestril] 5 mg PO DAILY 01/26/18 Metoprolol Tartrate [Lopressor] 50 mg PO HS 01/26/18 Metoprolol Tartrate [Lopressor] 100 mg PO DAILY 01/26/18 Warfarin Sodium [Coumadin] 2 mg PO DAILY 01/26/18 Review of Systems - Review of Systems Constitutional: reports: Weakness Neurological: reports: Unsteady Gait Vital Signs: Vital Signs Temperature 97.6 F 01/27/18 10:00 Pulse Rate 80 01/27/18 14:00 Respiratory Rate 18 01/27/18 14:00 Blood Pressure 120/63 01/27/18 14:00 O2 Sat by Pulse Oximetry (%) 97 01/27/18 09:00 Constitutional: Yes: No Distress, Calm Neck: Yes: Supple Respiratory: Yes: Regular, CTA Bilaterally Gastrointestinal: Yes: Normal Bowel Sounds, Soft Cardiovascular: Yes: Pulse Irregular Heart Sounds: Yes: S1, S2 Murmur: Yes: Systolic Murmur, Grade 2 Edema: Yes Edema: LLE: Trace, RLE: Trace - Other Data Labs, Other Data: CBC, BMP 01/27/18 06:50 01/27/18 06:50 INR, PTT INR 1.23 (0.83-1.09) H 01/27/18 06:50 Afib @ [address] changes Ejection Fraction %: LVEF > or = 40 % Imaging - Results Chest X-ray: Report Reviewed (Right base, left midlung ATX) Cat Scan: Report Reviewed (CT Scan: Acute on chronic left frontal, parital, temporal convex subdural hematoma with contralateral midline displacement(0.4cm) ) Problem List - Problems (1) Anemia Code(s): D64.9 - ANEMIA, UNSPECIFIED Qualifiers: Iron deficiency anemia type: chronic blood loss (2) Aortic valve replaced Code(s): Z95.2 - PRESENCE OF PROSTHETIC HEART VALVE (3) Atrial fibrillation Code(s): I48.91 - UNSPECIFIED ATRIAL FIBRILLATION Qualifiers: Atrial fibrillation type: chronic Qualified Code(s): I48.2 - Chronic atrial fibrillation (4) Elevated INR Code(s): R79.1 - ABNORMAL COAGULATION PROFILE (5) HTN (hypertension) Code(s): I10 - ESSENTIAL (PRIMARY) HYPERTENSION Qualifiers: Hypertension type: unspecified Qualified Code(s): I10 - Essential (primary ) hypertension (6) History of CVA in adulthood Code(s): Z86.73 - PRSNL HX OF TIA (TIA), AND CEREB INFRC W/O RESID DEFICITS (7) Subdural hematoma, post-traumatic Code(s): S06.5X9A - TRAUM SUBDR HEM W LOC OF UNSP DURATION, INIT Qualifiers: Encounter type: initial encounter Loss of consciousness presence/duration: without LOC Qualified Code(s): S06.5X0A - Traumatic subdural hemorrhage without loss of consciousness, initial encounter Assessment/Plan Echocardiography performed January 27, 2017 revealed concentric left ventricular hypertrophy with normal left ventricular systolic function and estimated left ventricular ejection fraction between 60-65%, left atrial dilatation measuring 4.7 cm, right atrial dilatation, Bio-prosthetic aortic valve with a mean trans-valvular gradient of 10.5 mmHg and a peak trans- valvular gradient of 21.3 mmHg and mild aortic valve regurgitation, thickened mitral valve leaflets with moderate mitral valve regurgitation, moderate tricuspid valve regurgitation with calculated RVSP of 43.9 mmHg. 48 hour Holter monitor performed February 02, 2017 through February 04, 2017 revealed atrial fibrillation with a minimum HR of 43 BPM and maximum HR of 142 BPM average daily HR of 73 BPM in the initial 24 hours, atrial fibrillation with a minimum HR of 42 BPM and maximum HR of 133 BPM average daily HR of 72 BPM , no significant pauses were noted, occasional ventricular ectopics including couplets and non-specific ST segment abnormality noted during recording non diagnostic of ischemia. ASSESSMENT: 1. Acute on chronic left subdural hematoma with mass effect s/p fall, but minimally symptomatic 2. Aortic valve disease aortic valve stenosis status post aortic valve replacement Bio-prosthesis (21 mm Toan-Edward's bovine pericardial valve). 3. History of negative left heart cardiac catheterization coronary angiography for coronary artery disease August 31, 2003. 4. Diastolic left ventricular dysfunction with chronic class 0-I [place] Heart Association classification left ventricular failure, compensated/ euvolemic. 5. Persistent atrial fibrillation on chronic anticoagulation therapy with Coumadin [id number] score of 5 and supratherapeutic INR 6. Mitral valve regurgitation mild in severity of no clinical significance. 7. Tricuspid valve regurgitation mild in severity with RVSP of 32 mmHg on echocardiography performed April 28, 2014 and 44 mmHg on echocardiography performed November 26, 2012 consistent with mild to moderate degree of pulmonary hypertension. 8. Hypertensive cardiovascular disease, at goal. 9. Hypercholesterolemia. 10. Carotid stenosis moderate in severity, asymptomatic. 11. History of breast carcinoma post mastectomy. 12. History of degenerative joint disease. 13. UTI PLAN: 1. D/C coumadin giiven h/o traumatic SDH, to consider ANTHONY occlusion as outpatient if reinitiation of a/c after healing is contraindicated 2. Observation for now given minimal symptoms if any 3. Empiric abx course 4. Continue Toprol XL 100 qAM, 50 qPM, losartan 100 qd, Lipitor 20 qhs, Norvasc 5 qd 5. Thank you for consultative opportunity
--- NOTE | 2018-01-27 16:14 | PN ---
Progress Note (short form) - Note Progress Note: NEUROSURGERY CONSULT DICTATED Chart reviewed Head CT reviewed Afib on coumadin, htn, s/p old aortic valve replacement is s/p fall 2 weeks ago c/o persistent L knee pain and difficulty ambulating. Denied any prior chest pain, shortness of breath, headache, denies dizziness, focal weakness, fever, chills, back pain, urinary or bowel incontinence. The patient normally ambulates with a walker and needed some assistance to stand but she was otherwise asymptomatic. PMD sent the patient to the ER for evaluation because of c/o weakness and difficulty walking due to LLE pain. PE; AF, VSS 117/62 A/A/Ox2 in [place] HEENT- NC/AT; Neck- supple; Cor- Irreg; Lungs- CTA B; Abd- benign, + BS; Ext- no sign of DVT, L knee tenderness CN- intact, mild L lid lag; Motor- 4+/5, no drift; Sensation- intact LT; DTR- 1+ , L toe upgoing Head CT 01-26: L fronto-parietal chronic (hypodense) SDH thickest 13 mm with small amount of isodense posterior layering and mild cortical and L ventricular mass effect and 2 mm L to R shift; L sided subdural membrane noted F/U Head CT 01-27: unchanged appearance from 01-26 Acute/subacute on chronic L hemispheric SDH with mass effect, but minimally if at all symptomatic Elderly with extensive cardiac condition, and surgery on the mostly chronic SDH given paucity of deficits may pose more risks than benefits If pt has worsening H/A or neurological deficits surgical evacuation would be recommended, but not at this time Pros and cons, risks and benefits of surgery vs no surgery d/w son by phone, who decided at this time to observe only D/w ICU team
[2018-01-27] MEDS: ATORVASTATIN CA 20 MG TABLET (FP) PO SCH (21:31)
[2018-01-27] MEDS: MUPIROCIN 2% TOPICAL OINTMENT FOR DECOLONIZATION NS SCH (21:31)
[2018-01-27] MEDS ORDERED: METOPROLOL TARTRATE 50 MG TABLET (FP) PO SCH (22:00)
[2018-01-27] MEDS ORDERED: ATORVASTATIN CA 20 MG TABLET (FP) PO SCH (22:00)
[2018-01-27] MEDS ORDERED: CHLORHEXIDINE GLUCONATE 4% CLEANSER FOR DECOLONIZATION TP SCH (22:00)
--- NOTE | 2018-01-27 22:32 | CONSULT ---
Consult - text type - Consultation Consultation Note: NEUROSURGERY CONSULTATION Keely Babcock is an 87 year old female with a history of Aortic stenosis with Aortic valve replacement and atrial fibrillation who is maintained on Coumadin. She has been having some gait difficulties and fell 2 weeks ago where she struck her head, but did not lose consciousness. She was directed to the [place] ER for further evaluation last evening. CT head reveals a moderate sized Left Frontal/Parietal Chronic subdural hematoma with 4mm midline shift (Left to Right). She was near her Neurological baseline, however, her gait was unsteady and she complained of a headache. Although she has compensated somewhat for the volume of the hematoma with her atrophy, the mild symptoms, recent fall, and anticoagulation suggested that further evaluation and possible evacuation may be appropriate. The patient was transferred to [facility] and was admitted to the ICU where her anticoagulation was reversed (INR 4.0 -> 1.2). The patient remained awake and alert and Cardiology evaluation was performed. Repeat CT was essentially unchanged. On Physical Examination, the patient is awake and alert (speaks normally through translation of her family) and moves all extremities with grossly full power. She does not have a pronator drift and has a largely normal sensory exam. Extinction to double simultaneous stimulation is not reproduced and examination is hindered by compliance and language barrier. I had a long discussion with the family concerning the risks, benefits and alternatives to evacuation of this subdural collection through either a craniostomy or sue hole and far less likely, via craniotomy. Although she is largely tolerating the mass effect, she may be slowly bleeding and the hypodensity of this clot hints that it may be far more than 2 weeks old. There is a remote incident of possibly slipping in the bathtub 6 months ago which, in the setting of anticoagulation, may have resulted in a small, slow leak. Although resumption of anticoagulation and normal activities would seem to be reasonable, there will persist a small chance that this collection will grow. Most likely, she will not have a rapid decline, although with anticoagulation, this remains a remote possibility. The greater risk to non-operative managment would be that she has persisting or progressive mild Right hemiparesis which may manifest as proximal muscle weakness and a predisposition to falls. The risks of surgery, particularly a focal decompression via craniostomy/sue hole in the setting of normal coagulation, would not be especially high and the procedure could be done under local anesthesia. I explained that even with evacuation, there would be at least a 10% chance of reaccumulation, especially in the setting of resumption of anticoagulation. The discussion with the patient and family was comprehensive and lasted over 30 minutes. All questions were answered. The family asked intelligent questions and demonstrated a sound understanding of this information. Ultimately, the family elected not to pursue surgery, and asked for more time to think about this decision. I stressed that there was no urgency and that it would not be wrong to avoid surgical intervention. My primary concern would be to have her carefully evaluated by Physical Therapy to make certain that she is not a fall risk and education of the family of warning signs which might prompt repeat imaging. I would not recommend routine imaging
--- NOTE | 2018-01-28 07:59 | CONS ---
DATE OF CONSULTATION: DATE OF DICTATION: 01/27/2018 REQUESTING PHYSICIAN: Mustapha Benavides MD HAND SPRING FORMER: Ok Gloria MD, Neurosurgery. 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 HISTORY OF PRESENT ILLNESS: The patient is an 87-year-old right -handed female with history of aortic valve stenosis status post valve replacement, atrial fibrillation on chronic anticoagulation, hypertension, who reportedly had fallen at home about 2 weeks ago. She was apparently opening her refrigerator door and fell backwards. She denied loss of consciousness at that time. She had no seizure activity. She had no increasing headache, weakness, fever, chills, back or neck pain. She has no diplopia. She usually uses a walker with assistance. She was otherwise asymptomatic. Because of her complaint of weakness and left leg pain, she was sent to the emergency room by her primary care physician for evaluation. PAST MEDICAL HISTORY: Significant for atrial fibrillation on chronic anticoagulation, aortic valve replacement, hypertension. MEDICATIONS: Current medications include Lopressor, Prinivil, ceftriaxone, Keppra, Norvasc, and Lipitor. ALLERGIES: There are no known drug allergies. FAMILY HISTORY: Noncontributory. SOCIAL HISTORY: She does not smoke or drink. She lives at home. REVIEW OF SYSTEMS: Otherwise negative except for major constitutional, head and neck, cardiovascular, pulmonary, gastrointestinal, genitourinary, endocrinologic, neurologic, or psychologic problems. PHYSICAL EXAMINATION: Vital signs: Temperature is 97.6, blood pressure is 140/90 with a pulse rate of 94, O2 saturation is 97% on room air. HEENT: Examination shows her to be normocephalic, atraumatic, anicteric. Neck: Supple, with no carotid bruit. Coronary: Examination demonstrates irregular rhythm. Lungs: Clear bilaterally. Abdomen: Benign. Extremities: Examination shows no signs of DVT. Neurologic: She is awake and alert and oriented x3. She is mostly [place]ish-speaking, but understands some Mauritanian. Cranial nerve examination is intact except for mild left lid lag. Motor examination shows 4+/5 strength without drift. Sensory examination is intact to light touch. Deep tendon reflexes are 1+ throughout. Her left big toe is upgoing. Gait was not tested for safety reasons. Cerebellar examination demonstrates rarely intact [id number]. She had mild past pointing on [id number] examination bilaterally. LABORATORY EXAMINATION: Shows the white blood cell count to be 6.4, hemoglobin is 10.3, platelet count is 179,000. INR is 1.23. PTT is 28.3. Serum sodium is 139, potassium is 3.9, BUN is 20, creatinine is 0.8, albumin 3.0. Urinalysis shows 1+ leukocyte esterase, there is 20-40 WBC and 2-[address] scan of the head from yesterday and today demonstrated a stable left frontal parietal chronic subdural hematoma with a small amount of posterior blood fluid level, acute/subacute hematoma. There is mild cortical mass effect as well as mass effect on the left lateral ventricle. There is about 2-mm left to right shift. IMPRESSION: 1. Acute/subacute on chronic left frontal to parietal subdural hematoma with mass effect and minimal shift. 2. Cardiac disease consisting of aortic stenosis status post valve replacement, atrial fibrillation on anticoagulation, and hypertension. RECOMMENDATIONS: The patient presents with some further gait difficulties and generalized weakness. At baseline, she was using a walker for ambulation. Given her advanced age and cardiac condition, I do not highly recommend surgical intervention at this time. The patient does have a moderate-sized subdural hematoma with maximal thickness of approximately 1.3 cm. There is some cortical mass effect and a small amount of midline shift of about 2 mm or so. Most of the hematoma appears to be chronic in nature as it is completely hypodense with the exception of some posterior component, which is likely acute/subacute, corresponding to her fall about 2 weeks earlier. With age and cardiac condition and her relatively asymptomatic status, I do not recommend urgent neurosurgical intervention at this time. If she was to develop worsening headache, mental status changes, and/or right hemiparesis, surgical intervention could be considered. The pros and cons of treatment approaches were discussed with the son over the phone. The risks and benefits of surgery versus no surgery were also discussed in detail. All questions were answered at bedside. The sons preference is for the patient not to undergo surgical intervention at this time. OK GLORIA M.D. JOSIANE/[id number]
--- NOTE | 2018-01-28 08:26 | PN ---
Progress Note (short form) - Note Progress Note: NEUROSURGERY Afib on coumadin, htn, s/p aortic valve replacement. Denies headache, N/V, denies dizziness, weakness. In bed on 5S PE; AF, VSS A/A/Ox2 in French; following commands HEENT- NC/AT; Neck- supple; Cor- Irreg; Lungs- CTA B; Abd- benign, + BS; Ext- no sign of DVT, L knee tenderness CN- intact, mild L lid lag; Motor- 4+/5, no drift; Sensation- intact LT; DTR- 1+ , L toe upgoing Head CT 01-26: L fronto-parietal chronic (hypodense) SDH thickest 13 mm with small amount of isodense posterior layering and mild cortical and L ventricular mass effect and 2 mm L to R shift; L sided subdural membrane noted F/U Head CT 01-27: unchanged appearance from 01-26 Acute/subacute on chronic L hemispheric SDH with mild mass effect, but minimally if at all symptomatic Elderly female with extensive cardiac condition, and surgery on the mostly chronic SDH given paucity of deficits may pose more risks than benefits If pt has worsening H/A or neurological deficits, surgical evacuation would be recommended, but not at this time Pros and cons, risks and benefits of surgery vs no surgery d/w son by phone yesterday OOB/PT Fall precaution given prior condition/status
[2018-01-28 08:36] LABS: EOS % 1.8 % (0-4.5); HEMATOCRIT 38.1 % (32.4-45.2); HEMOGLOBIN 11.7 GM/dL (10.7-15.3); MCHC 30.8 g/dl (32.0-36.0); MEAN PLT VOLUME 8.3 fl (7.5-11.1); MONO % 9.2 % (3.8-10.2); PLATELET COUNT 208 K/MM3 (134-434); RBC 4.88 M/mm3 (3.60-5.2); RDW 17.8 % (11.6-15.6); WHITE BLOOD COUNT 7.1 K/mm3 (4.0-10.0)
[2018-01-28 08:44] LABS: INR 1.19 (0.83-1.09); PROTHROMBIN TIME (PATIENT) 14.1 SEC (9.7-13.0)
[2018-01-28 09:12] LABS: ALK PHOS 111 U/L (45-117); ANION GAP 10 MMOL/L (8-16); BILIRUBIN,TOTAL 0.7 mg/dL (0.2-1); BLOOD UREA NITROGEN 18 mg/dL (7-18); CALCIUM 8.5 mg/dL (8.5-10.1); CHLORIDE 103 mmol/L (98-107); CO2 27 mmol/L (21-32); CREATININE 0.8 mg/dL (0.55-1.3); GLUCOSE,RANDOM 87 mg/dL (74-106); MAGNESIUM 2.4 mg/dL (1.8-2.4); PHOSPHOROUS 3.4 mg/dL (2.5-4.9); POTASSIUM 4.2 mmol/L (3.5-5.1); SGOT/AST 15 U/L (15-37); SGPT/ALT 23 U/L (13-61); SODIUM 140 mmol/L (136-145); TOT PROT 6.8 g/dl (6.4-8.2)
[2018-01-28] MEDS ORDERED: cefTRIAXone SODIUM 1 GM VIAL ONE (10:00)
[2018-01-28] MEDS ORDERED: DEXTROSE 5%-WATER - 50 ML IVPB ONE (10:00)
[2018-01-28] MEDS: MUPIROCIN 2% TOPICAL OINTMENT FOR DECOLONIZATION NS SCH ×2 (10:01→21:52)
[2018-01-28] MEDS: LISINOPRIL 5 MG TABLET (FP) PO SCH (10:02)
[2018-01-28] MEDS: amLODIPine BESYLATE 5 MG TABLET (FP) PO SCH (10:02)
[2018-01-28] MEDS: METOPROLOL TARTRATE 50 MG TABLET (FP) PO SCH ×2 (10:02→21:52)
[2018-01-28] MEDS: levETIRAcetam 500 MG TABLET (FP) PO SCH ×2 (10:02→21:52)
[2018-01-28] MEDS: CEFTRIAXONE 1 GM in DEXTROSE 5%-WATER - 50 ML IVPB SCH (10:03)
--- NOTE | 2018-01-28 12:39 | PN ---
Progress Note, Physician History of Present Illness: Denies ZAMORANO or neurologic deficits. - Current Medication List Current Medications: Active Medications Amlodipine Besylate (Norvasc -) 5 mg PO DAILY [facility] Last Admin: 01/28/18 10:02 Dose: 5 mg Atorvastatin Calcium (Lipitor -) 20 mg PO HS [facility] Last Admin: 01/27/18 21:31 Dose: 20 mg Ceftriaxone Sodium 1 gm/ (Dextrose) 50 mls @ 100 mls/hr IVPB DAILY [facility] Last Admin: 01/28/18 10:03 Dose: 100 mls/hr Levetiracetam (Keppra -) 500 mg PO BID [facility] Last Admin: 01/28/18 10:02 Dose: 500 mg Lisinopril (Prinivil) 5 mg PO DAILY [facility] Last Admin: 01/28/18 10:02 Dose: 5 mg Metoprolol Tartrate (Lopressor -) 50 mg PO BID [facility] Last Admin: 01/28/18 10:02 Dose: 50 mg Mupirocin (Bactroban Ointment (For Decolonization) -) 1 applic NS BID [facility] Stop: 02/01/18 09:59 Last Admin: 01/28/18 10:01 Dose: Not Given - Objective Vital Signs: Vital Signs Temperature 97.5 F L 01/28/18 10:03 Pulse Rate 89 01/28/18 10:03 Respiratory Rate 18 01/28/18 10:03 Blood Pressure 131/54 L 01/28/18 10:03 O2 Sat by Pulse Oximetry (%) 99 01/27/18 21:00 Constitutional: Yes: No Distress, Calm Neck: Yes: Supple Cardiovascular: Yes: Pulse Irregular Respiratory: Yes: Regular, Diminished Gastrointestinal: Yes: Normal Bowel Sounds, Soft Edema: No Labs: CBC, BMP 01/28/18 07:00 01/28/18 07:00 INR, PTT INR 1.19 (0.83-1.09) H 01/28/18 07:00 Problem List - Problems (1) Anemia Code(s): D64.9 - ANEMIA, UNSPECIFIED Qualifiers: Iron deficiency anemia type: chronic blood loss (2) Aortic valve replaced Code(s): Z95.2 - PRESENCE OF PROSTHETIC HEART VALVE (3) Atrial fibrillation Code(s): I48.91 - UNSPECIFIED ATRIAL FIBRILLATION Qualifiers: Atrial fibrillation type: chronic Qualified Code(s): I48.2 - Chronic atrial fibrillation (4) Elevated INR Code(s): R79.1 - ABNORMAL COAGULATION PROFILE (5) HTN (hypertension) Code(s): I10 - ESSENTIAL (PRIMARY) HYPERTENSION Qualifiers: Hypertension type: unspecified Qualified Code(s): I10 - Essential (primary ) hypertension (6) History of CVA in adulthood Code(s): Z86.73 - PRSNL HX OF TIA (TIA), AND CEREB INFRC W/O RESID DEFICITS (7) Subdural hematoma, post-traumatic Code(s): S06.5X9A - TRAUM SUBDR HEM W LOC OF UNSP DURATION, INIT Qualifiers: Encounter type: initial encounter Loss of consciousness presence/duration: without LOC Qualified Code(s): S06.5X0A - Traumatic subdural hemorrhage without loss of consciousness, initial encounter Assessment/Plan Echocardiography performed January 27, 2017 revealed concentric left ventricular hypertrophy with normal left ventricular systolic function and estimated left ventricular ejection fraction between 60-65%, left atrial dilatation measuring 4.7 cm, right atrial dilatation, Bio-prosthetic aortic valve with a mean trans-valvular gradient of 10.5 mmHg and a peak trans- valvular gradient of 21.3 mmHg and mild aortic valve regurgitation, thickened mitral valve leaflets with moderate mitral valve regurgitation, moderate tricuspid valve regurgitation with calculated RVSP of 43.9 mmHg. 48 hour Holter monitor performed February 02, 2017 through February 04, 2017 revealed atrial fibrillation with a minimum HR of 43 BPM and maximum HR of 142 BPM average daily HR of 73 BPM in the initial 24 hours, atrial fibrillation with a minimum HR of 42 BPM and maximum HR of 133 BPM average daily HR of 72 BPM , no significant pauses were noted, occasional ventricular ectopics including couplets and non-specific ST segment abnormality noted during recording non diagnostic of ischemia. ASSESSMENT: 1. Acute on chronic left subdural hematoma with mass effect s/p fall, but minimally symptomatic 2. Aortic valve disease aortic valve stenosis status post aortic valve replacement Bio-prosthesis (21 mm Toan-Edward's bovine pericardial valve). 3. History of negative left heart cardiac catheterization coronary angiography for coronary artery disease August 31, 2003. 4. Diastolic left ventricular dysfunction with chronic class 0-I [employer] Heart [employer] classification left ventricular failure, compensated/ euvolemic. 5. Persistent atrial fibrillation on chronic anticoagulation therapy with Coumadin [id number] score of 5 and now subtherapeutic INR 6. Mitral valve regurgitation mild in severity of no clinical significance. 7. Tricuspid valve regurgitation mild in severity with RVSP of 32 mmHg on echocardiography performed April 28, 2014 and 44 mmHg on echocardiography performed November 26, 2012 consistent with mild to moderate degree of pulmonary hypertension. 8. Hypertensive cardiovascular disease, at goal. 9. Hypercholesterolemia. 10. Carotid stenosis moderate in severity, asymptomatic. 11. History of breast carcinoma post mastectomy. 12. History of degenerative joint disease. 13. UTI PLAN: 1. D/C coumadin giiven h/o traumatic SDH, to consider ANTHONY occlusion with Watchman device as outpatient if re-initiation of a/c after healing is contraindicated 2. Observation for now given minimal symptoms if any, appreciate Dr. Prado's input, seizure prophylaxis 3. Empiric abx course 4. Continue Lopressor 50 bid, lisinopril 5 qd, Lipitor 20 qhs, Norvasc 5 qd 5. PT, gait training
--- NOTE | 2018-01-28 16:24 | DS ---
Physical Examination Vital Signs: Vital Signs Temperature 98.1 F 01/28/18 14:36 Pulse Rate 101 H 01/28/18 14:36 Respiratory Rate 22 H 01/28/18 14:36 Blood Pressure 147/62 01/28/18 14:36 O2 Sat by Pulse Oximetry (%) 99 01/27/18 21:00 Constitutional: Yes: Well Nourished, No Distress, Calm Eyes: Yes: Conjunctiva Clear, EOM Intact HENT: Yes: Other (no droop) Cardiovascular: Yes: Pulse Irregular Respiratory: Yes: CTA Bilaterally Gastrointestinal: Yes: Soft Musculoskeletal: Yes: Other (pain on the LLE) Edema: No Integumentary: Yes: WNL Neurological: Yes: Alert, Oriented ...Motor Strength: WNL Psychiatric: Yes: WNL Labs: CBC, BMP 01/28/18 07:00 01/28/18 07:00 Discharge Summary Reason For Visit: SUBDURAL HEMATOMA Current Active Problems Aortic valve replaced (Acute) Atrial fibrillation (Acute) Bacteria in urine (Acute) Elevated INR (Acute) HTN (hypertension) (Acute) History of CVA in adulthood (Acute) History of breast cancer in female (Acute) Left knee pain (Acute) Lipidemia (Acute) Mobility impaired (Acute) Subdural hematoma, post-traumatic (Acute) Hospital Course: 87y F hx of afib (on coumadin), htn, s/p old aortic valve replacement who is s/ p fall at home presents for evaluation by PMD as she has had persistent L knee pain and had some difficulty ambulating. They did not seek medical attention at the time of the incident. The patient normally ambulates with a walker she needed some assistance to stand but she was otherwise asymptomatic. The patient had a f/u visit with her primary care doctor who sent the patient to the ER for evaluation because of c/o some weakness and difficulty walking due to LLE pain. head CT was done showing frontal sub-dural hematoma (acute & chronic) the INR was elevated at 4.o. She was given FFP and the a/c was reveresed; she was seen by NS who was inclined to perform surgery to evacuate the blood; but presumably her son called for a 2nd opinion from Dr Ok Prado who felt surgery was not warranted given the totality of the variables. She was seen by her home health care respiratory therapist who advised to stop the a/c (risks outweigh benefits) and to f/u in several weeks; she is to continue on her other Cardiac meds, and will plan to send her to SNF for short term rehab. Condition: Stable - Instructions Diet, Activity, Other Instructions: soft low sodium diet rehab VNS when ready fro d/c home Referrals: Terrance See MD [Primary Care Provider] - Disposition: ASSISTED FACILITY - Home Medications Comprehensive Discharge Medication List: Ambulatory Orders Amlodipine Besylate [Norvasc -] 5 mg PO DAILY 01/26/18 Atorvastatin Ca [Lipitor] 20 mg PO HS 01/26/18 Lisinopril [Zestril] 5 mg PO DAILY 01/26/18 Metoprolol Tartrate [Lopressor] 50 mg BID 01/26/18 Levaquin 250mg Qd x 7 days colace 100mg QD Keppra 500mg BID
[2018-01-28] MEDS: ATORVASTATIN CA 20 MG TABLET (FP) PO SCH (21:52)
[2018-01-29 06:07] LABS: SERUM IRON SATURATION 8 % (15-55); TOTAL IRON BINDING CAPACITY 248 ug/dL (250-450); UIBC 229 ug/dL (118-369)
--- NOTE | 2018-01-29 08:16 | PN ---
Progress Note (short form) - Note Progress Note: NEUROSURGERY No c/o h/a or subjective weakness Reportedly do a little bit better per son yesterday with PT In bed on 5S PE; AF, VSS A/A/Ox2 in [place]; following commands HEENT- NC/AT; Neck- supple; Cor- Irreg; Lungs- CTA B; Abd- benign, + BS; Ext- no sign of DVT, L knee tenderness CN- intact, mild L lid lag; Motor- 4+/5 overall, L LE 4-4+, no drift; Sensation - intact LT; DTR- 1+, L toe upgoing Head CT 01-26: L fronto-parietal chronic (hypodense) SDH thickest 13 mm with small amount of isodense posterior layering and mild cortical and L ventricular mass effect and 2 mm L to R shift; L sided subdural membrane noted F/U Head CT 01-27: unchanged appearance from 01-26 Acute/subacute on chronic L hemispheric SDH with mild mass effect/shift, but minimally if at all symptomatic If pt has worsening H/A or worsening neurological deficits, surgical evacuation could be recommended Pt overall condition and progress, pros and cons, risks and benefits of surgery vs no surgery d/w son by phone again yesterday OOB/PT Fall precaution given prior condition/status Plan is to observe neurological status in rehab
[2018-01-29] MEDS ORDERED: cefTRIAXone SODIUM 1 GM VIAL ONE (09:40)
[2018-01-29] MEDS ORDERED: DEXTROSE 5%-WATER - 50 ML IVPB ONE (09:40)
[2018-01-29] MEDS: amLODIPine BESYLATE 5 MG TABLET (FP) PO SCH (10:18)
[2018-01-29] MEDS: CEFTRIAXONE 1 GM in DEXTROSE 5%-WATER - 50 ML IVPB SCH (10:18)
[2018-01-29] MEDS: levETIRAcetam 500 MG TABLET (FP) PO SCH (10:18)
[2018-01-29] MEDS: METOPROLOL TARTRATE 50 MG TABLET (FP) PO SCH (10:18)
[2018-01-29] MEDS: LISINOPRIL 5 MG TABLET (FP) PO SCH (10:18)
[2018-01-29] MEDS: MUPIROCIN 2% TOPICAL OINTMENT FOR DECOLONIZATION NS SCH (10:24)
--- NOTE | 2018-01-29 14:15 | PN ---
Progress Note, Physician History of Present Illness: Denies ZAMORANO or neurologic deficits. - Current Medication List Current Medications: Active Medications Amlodipine Besylate (Norvasc -) 5 mg PO DAILY [facility] Last Admin: 01/29/18 10:18 Dose: 5 mg Atorvastatin Calcium (Lipitor -) 20 mg PO HS [facility] Last Admin: 01/28/18 21:52 Dose: 20 mg Ceftriaxone Sodium 1 gm/ (Dextrose) 50 mls @ 100 mls/hr IVPB DAILY [facility] Last Admin: 01/29/18 10:18 Dose: 100 mls/hr Levetiracetam (Keppra -) 500 mg PO BID [facility] Last Admin: 01/29/18 10:18 Dose: 500 mg Lisinopril (Prinivil) 5 mg PO DAILY [facility] Last Admin: 01/29/18 10:18 Dose: 5 mg Metoprolol Tartrate (Lopressor -) 50 mg PO BID [facility] Last Admin: 01/29/18 10:18 Dose: 50 mg Mupirocin (Bactroban Ointment (For Decolonization) -) 1 applic NS BID [facility] Stop: 02/01/18 09:59 Last Admin: 01/29/18 10:24 Dose: Not Given - Objective Vital Signs: Vital Signs Temperature 98.1 F 01/29/18 10:12 Pulse Rate 92 H 01/29/18 10:12 Respiratory Rate 20 01/29/18 10:12 Blood Pressure 128/73 01/29/18 10:12 O2 Sat by Pulse Oximetry (%) 99 01/28/18 21:00 Constitutional: Yes: No Distress, Calm, Thin Neck: Yes: Supple Cardiovascular: Yes: Pulse Irregular Respiratory: Yes: Regular, Diminished, On Nasal O2 Gastrointestinal: Yes: Normal Bowel Sounds, Soft Edema: No Labs: CBC, BMP 01/28/18 07:00 01/28/18 07:00 INR, PTT INR 1.19 (0.83-1.09) H 01/28/18 07:00 Problem List - Problems (1) Anemia Code(s): D64.9 - ANEMIA, UNSPECIFIED Qualifiers: Iron deficiency anemia type: chronic blood loss (2) Aortic valve replaced Code(s): Z95.2 - PRESENCE OF PROSTHETIC HEART VALVE (3) Atrial fibrillation Code(s): I48.91 - UNSPECIFIED ATRIAL FIBRILLATION Qualifiers: Atrial fibrillation type: chronic Qualified Code(s): I48.2 - Chronic atrial fibrillation (4) Elevated INR Code(s): R79.1 - ABNORMAL COAGULATION PROFILE (5) HTN (hypertension) Code(s): I10 - ESSENTIAL (PRIMARY) HYPERTENSION Qualifiers: Hypertension type: unspecified Qualified Code(s): I10 - Essential (primary ) hypertension (6) History of CVA in adulthood Code(s): Z86.73 - PRSNL HX OF TIA (TIA), AND CEREB INFRC W/O RESID DEFICITS (7) Subdural hematoma, post-traumatic Code(s): S06.5X9A - TRAUM SUBDR HEM W LOC OF UNSP DURATION, INIT Qualifiers: Encounter type: initial encounter Loss of consciousness presence/duration: without LOC Qualified Code(s): S06.5X0A - Traumatic subdural hemorrhage without loss of consciousness, initial encounter Assessment/Plan Echocardiography performed January 27, 2017 revealed concentric left ventricular hypertrophy with normal left ventricular systolic function and estimated left ventricular ejection fraction between 60-65%, left atrial dilatation measuring 4.7 cm, right atrial dilatation, Bio-prosthetic aortic valve with a mean trans-valvular gradient of 10.5 mmHg and a peak trans- valvular gradient of 21.3 mmHg and mild aortic valve regurgitation, thickened mitral valve leaflets with moderate mitral valve regurgitation, moderate tricuspid valve regurgitation with calculated RVSP of 43.9 mmHg. 48 hour Holter monitor performed February 02, 2017 through February 04, 2017 revealed atrial fibrillation with a minimum HR of 43 BPM and maximum HR of 142 BPM average daily HR of 73 BPM in the initial 24 hours, atrial fibrillation with a minimum HR of 42 BPM and maximum HR of 133 BPM average daily HR of 72 BPM , no significant pauses were noted, occasional ventricular ectopics including couplets and non-specific ST segment abnormality noted during recording non diagnostic of ischemia. ASSESSMENT: 1. Acute on chronic left subdural hematoma with mass effect s/p fall, but minimally symptomatic 2. Aortic valve disease aortic valve stenosis status post aortic valve replacement Bio-prosthesis (21 mm Toan-Edward's bovine pericardial valve). 3. History of negative left heart cardiac catheterization coronary angiography for coronary artery disease August 31, 2003. 4. Diastolic left ventricular dysfunction with chronic class 0-I [place] [employer] classification left ventricular failure, compensated/ euvolemic. 5. Persistent atrial fibrillation on chronic anticoagulation therapy with Coumadin [id number] score of 5 and now subtherapeutic INR 6. Mitral valve regurgitation mild in severity of no clinical significance. 7. Tricuspid valve regurgitation mild in severity with RVSP of 32 mmHg on echocardiography performed April 28, 2014 and 44 mmHg on echocardiography performed November 26, 2012 consistent with mild to moderate degree of pulmonary hypertension. 8. Hypertensive cardiovascular disease, at goal. 9. Hypercholesterolemia. 10. Carotid stenosis moderate in severity, asymptomatic. 11. History of breast carcinoma post mastectomy. 12. History of degenerative joint disease. 13. UTI PLAN: 1. D/C coumadin giiven h/o traumatic SDH, to consider ANTHONY occlusion with Watchman device as outpatient if re-initiation of a/c after healing is contraindicated 2. Observation for now given minimal symptoms if any, appreciate Dr. Prado's input, seizure prophylaxis 3. Empiric abx course 4. Continue Lopressor 50 bid, lisinopril 5 qd, Lipitor 20 qhs, Norvasc 5 qd 5. PT, gait training, SNF placement
[2018-01-29 15:54] VITALS: TEMP 97.8
--- NOTE | 2018-01-29 17:18 | PN ---
Progress Note (short form) - Note Progress Note: ADDENDUM TO D/C Summary Current Medications Amlodipine Besylate (Norvasc -) 5 mg PO DAILY [facility] [place] Last Admin: 01/29/18 10:18 Dose: 5 mg Atorvastatin Calcium (Lipitor -) 20 mg PO HS [facility] [place] Last Admin: 01/28/18 21:52 Dose: 20 mg Ceftriaxone Sodium 1 gm/ (Dextrose) 50 mls @ 100 mls/hr IVPB DAILY [facility] [place] Last Admin: 01/29/18 10:18 Dose: 100 mls/hr Levetiracetam (Keppra -) 500 mg PO BID [facility] [place] Last Admin: 01/29/18 10:18 Dose: 500 mg Lisinopril (Prinivil) 5 mg PO DAILY [facility] [place] Last Admin: 01/29/18 10:18 Dose: 5 mg Metoprolol Tartrate (Lopressor -) 50 mg PO BID [facility] [place] Last Admin: 01/29/18 10:18 Dose: 50 mg Mupirocin (Bactroban Ointment (For Decolonization) -) 1 applic NS BID [facility] [place] Stop: 02/01/18 09:59 Last Admin: 01/29/18 10:24 Dose: Not Given Laboratory Results - last 24 hr 01/28/18 07:00 Iron 19 L TIBC 248 L Iron Saturation 8 L Vital Signs Temperature 97.8 F 01/29/18 15:52 Pulse Rate 91 H 01/29/18 15:52 Respiratory Rate 20 01/29/18 15:52 Blood Pressure 108/57 L 01/29/18 15:52 O2 Sat by Pulse Oximetry (%) 99 01/28/18 21:00 CC: no new issues ````````````````````` skin--stasis changes LE's eyes--non injected heart--irreg lungs--grossly clear ext--degen changes on weight bearing joints neuro--awake; verbal; good eye contact; able to speak fluently; no focal motor deficit; moves all extrems purposefully ```````````````````````````````````` Summ . s/p SDH--while on a/c; had to receive FfP & Vit K; now off a/c during acute period; will need f/u heat CT in 2 weeks to see if there has been resolution. Cot w/ seizure prohylaxis PLAN: rehab at SNF . s/p warfarin (coumadin) induced bleed--INR was 4.0 on admission; which was corrected FIORELLA . ATF--rate seem to be under 100; see cardio note; cont current agents . bacturia--cont PO Ab x 7 days . Htn--BP seems to be in range. ~~~~~~~~~~~~~~~~~~~~~~~~~~ Dr Benavides Problem List - Problems (1) Subdural hematoma, post-traumatic Code(s): S06.5X9A - TRAUM SUBDR HEM W LOC OF UNSP DURATION, INIT Qualifiers: Encounter type: initial encounter Loss of consciousness presence/duration: without LOC Qualified Code(s): S06.5X0A - Traumatic subdural hemorrhage without loss of consciousness, initial encounter (2) Atrial fibrillation Code(s): I48.91 - UNSPECIFIED ATRIAL FIBRILLATION Qualifiers: Atrial fibrillation type: chronic Qualified Code(s): I48.2 - Chronic atrial fibrillation (3) HTN (hypertension) Code(s): I10 - ESSENTIAL (PRIMARY) HYPERTENSION Qualifiers: Hypertension type: unspecified Qualified Code(s): I10 - Essential (primary ) hypertension (4) Aortic valve replaced Code(s): Z95.2 - PRESENCE OF PROSTHETIC HEART VALVE (5) History of breast cancer in female Code(s): Z85.3 - PERSONAL HISTORY OF MALIGNANT NEOPLASM OF BREAST (6) Bacteria in urine Code(s): R82.71 - BACTERIURIA (7) History of CVA in adulthood Code(s): Z86.73 - PRSNL HX OF TIA (TIA), AND CEREB INFRC W/O RESID DEFICITS (8) Left knee pain Code(s): M25.562 - PAIN IN LEFT KNEE Qualifiers: Chronicity: unspecified Qualified Code(s): M25.562 - Pain in left knee (9) Mobility impaired Code(s): Z74.09 - OTHER REDUCED MOBILITY (10) Lipidemia Code(s): E78.5 - HYPERLIPIDEMIA, UNSPECIFIED Qualifiers: Hyperlipidemia type: unspecified Qualified Code(s): E78.5 - Hyperlipidemia , unspecified (11) Anemia Code(s): D64.9 - ANEMIA, UNSPECIFIED Qualifiers: Anemia type: unspecified type Qualified Code(s): D64.9 - Anemia, unspecified (12) Anemia Code(s): D64.9 - ANEMIA, UNSPECIFIED Qualifiers: Iron deficiency anemia type: chronic blood loss
[2018-01-29 18:50] VITALS: BP 134/64; PULSE 99
== END 2018-01-29 20:07 | DRG 86 ==
LOC: FER 13:58 → JICU 23:00 → J5S 01-27 20:54
PROVIDERS: ADMIT Internal Medicine; ATTEND Internal Medicine
DX: S06.5X0A Traumatic subdural hemorrhage without loss of consciousness, initial encounter (principal); Z68.41 Body mass index [BMI] 40.0-44.9, adult; N39.0 Urinary tract infection, site not specified; D68.32 Hemorrhagic disorder due to extrinsic circulating anticoagulants; E66.9 Obesity, unspecified; Z79.01 Long term (current) use of anticoagulants; I10 Essential (primary) hypertension; E78.5 Hyperlipidemia, unspecified; I48.2 Chronic atrial fibrillation; C50.912 Malignant neoplasm of unspecified site of left female breast; Z95.3 Presence of xenogenic heart valve; W18.39XA Other fall on same level, initial encounter; Y93.89 Activity, other specified; Y92.030 Kitchen in apartment as the place of occurrence of the external cause; Y99.8 Other external cause status; Z90.12 Acquired absence of left breast and nipple; D64.9 Anemia, unspecified; Z85.3 Personal history of malignant neoplasm of breast; Z86.73 Personal history of transient ischemic attack (TIA), and cerebral infarction without residual deficits; M25.562 Pain in left knee
CPT/HCPCS: 36415; 36430; 70450-TC; 71045-TC-FY; 73562-TC-LT-FY; 80053; 81003; 81015; 82607; 82728; 83540; 83550; 83735; 84100; 85025; 85027; 85610; 85730; 86850; 86900; 86901; 87086; 93005; 97116-GP; 97162-GP; 99282-25; P9017

== ENCOUNTER 2018-02-26 16:14 | Inpatient (IN) | payer OTHER ==
[2018-02-26 16:40] VITALS: BMI 23.6
--- NOTE | 2018-02-26 16:44 | PDOC ---
Attending Attestation - HPI HPI: 02/26/18 17:56 The patient is a 87 year old female, with a significant PMH of atrial fibrillation, aortic valve replacement, hypertension, hyperlipidemia, breast cancer s/p mastectomy who presents to the emergency department with shortness of breath for 4 days. The patient also endorses cough, fever and chills. The patient states she was prescribed Keflex and saw improvement for 2 days but her symptoms worsened today. The patient denies chest pain, headache and dizziness. Denies nausea, vomit, diarrhea and constipation. Denies dysuria, frequency, urgency and hematuria. Allergies: NKA Documentation prepared by Daniel Gillis, acting as medical auditor for Ginna Gonzalez MD. <Daniel Gillis - Last Filed: 02/26/18 17:56> - Resident Resident Name: Ok Mcginnis - ED Attending Attestation I have performed the following: I have examined & evaluated the patient, The case was reviewed & discussed with the resident, I agree w/resident's findings & plan, Exceptions are as noted - Physicial Exam PE: GENERAL: Awake, alert, and fully oriented. +Mild respiratory distress. HEAD: No signs of trauma EYES: PERRLA, EOMI, sclera anicteric, conjunctiva clear ENT: Auricles normal inspection, hearing grossly normal, nares patent, oropharynx clear without exudates. Moist mucosa NECK: Normal ROM, supple, no lymphadenopathy, JVD, or masses LUNGS: Mild tachypnea, +diffuse rhonchi B/L. Good air entry B/L. HEART: Regular rate and rhythm, normal S1 and S2, no murmurs, rubs or gallops ABDOMEN: Soft, nontender, normoactive bowel sounds. No guarding, no rebound. No masses EXTREMITIES: Normal range of motion, no edema. No clubbing or cyanosis. No cords, erythema, or tenderness NEUROLOGICAL: Cranial nerves II through XII grossly intact. Normal speech. Motor and sensation intact. SKIN: Warm, Dry, normal turgor, no rashes or lesions noted. - Medical Decision Making Symptoms c/w pna, will treat with broad spectrum abx as she was admitted within the last month. <Ginna Gonzalez - Last Filed: 02/26/18 18:13>
[2018-02-26] MEDS ORDERED: ALBUTEROL SO4 2.5/IPRATROPIUM 0.5 INH SOL 3 ML VIAL.NEB. NEB ONE (16:51)
[2018-02-26] MEDS ORDERED: ACETAMINOPHEN 1000 MG/100 ML VIAL (NON FORMULARY) IVPB ONE (16:56)
[2018-02-26] MEDS ORDERED: SODIUM CHLORIDE 1,000 ML IV STA ×2 (17:05→18:57)
[2018-02-26] MEDS ORDERED: ACETAMINOPHEN INJECTION 100 ML IVPB ONE (17:12)
[2018-02-26 17:13] LABS: VENOUS PC02 45.4 mmHg (38-52); VENOUS PH 7.38 (7.32-7.42); VENOUS PO2 39.2 mmHg (28-48)
[2018-02-26] MEDS ORDERED: PIPERACILLIN/TAZOBACTAM 4.5 GM VIAL IVPB ONE (17:13)
[2018-02-26] MEDS ORDERED: VANCOMYCIN 1,000 MG in DEXTROSE 5%-WATER - 250 ML IVPB ONE (17:13)
[2018-02-26 17:16] LABS: BASO % 0.7 % (0-2.0); EOS % 0.2 % (0-4.5); LYMPH % 14.7 % (8-40); MCH 25.3 pg (25.7-33.7); MCHC 33.4 g/dl (32.0-36.0); MEAN CELL VOLUME 75.9 fl (80-96); MEAN PLT VOLUME 8.3 fl (7.5-11.1); NEUT % 75.4 % (42.8-82.8); PLATELET COUNT 216 K/MM3 (134-434); RBC 5.14 M/mm3 (3.60-5.2); WHITE BLOOD COUNT 8.7 K/mm3 (4.0-10.0)
--- NOTE | 2018-02-26 17:19 | PDOC ---
History of Present Illness - General Chief Complaint: Shortness of Breath Stated Complaint: Shortness of Breath Time Seen by Provider: 02/26/18 16:23 History Source: Patient Exam Limitations: No Limitations - History of Present Illness Initial Comments: 02/26/18 17:16 Patient is an 87F with history of afib, aortic valve replacement, HTN, HLD, breast cancer s/p mastectomy here today complaining of shortness of breath for the past 4 days. She states that she has associated cough, fevers, and chills. Denies chest pain and leg swelling. Patient states that she was prescribed keflex and was improving two days ago, but got worse today. Denies abdominal pain, dysuria, headache. Patient was admitted on 01/26 for subdural hematoma, conservatively managed. No longer taking blood thinners per chart. Past History - Past Medical History Allergies/Adverse Reactions: Allergies Allergy/AdvReac Type Severity Reaction Status Date / Time No Known Allergies Allergy Verified 02/26/18 16:27 Home Medications: Ambulatory Orders Amlodipine Besylate [Norvasc -] 5 mg PO DAILY 01/26/18 Atorvastatin Ca [Lipitor] 20 mg PO HS 01/26/18 Lisinopril [Zestril] 5 mg PO DAILY 01/26/18 Metoprolol Tartrate [Lopressor -] 50 mg PO BID tablet 01/28/18 levETIRAcetam [Keppra -] 500 mg PO BID tablet 01/28/18 Acetaminophen [Tylenol] 650 mg PO Q6H PRN 02/26/18 Cardiac Disorders: Yes (afib) COPD: No HTN: Yes - Surgical History Cardiac Surgery: Yes (aortic valve replacement) - Suicide/Smoking/Psychosocial Hx Smoking History: Never smoked Have you smoked in the past 12 months: No Information on smoking cessation initiated: No Hx Alcohol Use: No Drug/Substance Use Hx: No Substance Use Type: None Review of Systems - Review of Systems Comments:: 02/26/18 17:20 GENERAL/CONSTITUTIONAL: +fever +chills. No weakness. HEAD, EYES, EARS, NOSE AND THROAT: No change in vision. No sore throat. CARDIOVASCULAR: No chest pain +shortness of breath RESPIRATORY: +cough, no wheezing, or hemoptysis. GASTROINTESTINAL: No nausea, vomiting, diarrhea or constipation. GENITOURINARY: No dysuria, frequency, or change in urination. MUSCULOSKELETAL: No joint or muscle swelling or pain. No neck or back pain. SKIN: No rash NEUROLOGIC: No headache, vertigo, loss of consciousness, or change in strength/ sensation. ENDOCRINE: No increased thirst. No abnormal weight change HEMATOLOGIC/LYMPHATIC: No anemia, +subdural history ALLERGIC/IMMUNOLOGIC: No hives or skin allergy. *Physical Exam - Vital Signs Last Vital Signs Temp Pulse Resp BP Pulse Ox 97.5 F L 136 H 26 H 129/76 80 L 02/26/18 16:23 02/26/18 16:23 02/26/18 16:23 02/26/18 16:23 02/26/18 16:23 - Physical Exam Comments: 02/26/18 17:21 GENERAL: Awake, alert, and fully oriented, HEAD: No signs of trauma, normocephalic, atraumatic EYES: PERRLA, EOMI, sclera anicteric, conjunctiva clear ENT: Auricles normal inspection, hearing grossly normal, nares patent, oropharynx clear without exudates. Moist mucosa NECK: Normal ROM, supple, no lymphadenopathy, JVD, or masses LUNGS: Tachypneic to 30s, coarse breath sounds bilaterally. HEART: Irregular and tachycardic, s1/s2. ABDOMEN: Soft, nontender, normoactive bowel sounds. No guarding, no rebound. No masses EXTREMITIES: Normal inspection, Normal range of motion, no edema. No clubbing or cyanosis. NEUROLOGICAL: Cranial nerves II through XII grossly intact. Normal speech, no focal sensorimotor deficits SKIN: Warm, Dry, normal turgor, no rashes or lesions noted. Moderate Sedation - Procedure Monitoring Vital Signs: Procedure Monitoring Vital Signs Temperature 97.5 F L 02/26/18 16:23 Pulse Rate 136 H 02/26/18 16:23 Respiratory Rate 26 H 02/26/18 16:23 Blood Pressure 129/76 02/26/18 16:23 O2 Sat by Pulse Oximetry (%) 80 L 02/26/18 16:23 ED Treatment Course - LABORATORY CBC & Chemistry Diagram: 02/26/18 17:15 02/26/18 16:53 - ADDITIONAL ORDERS Additional order review: Laboratory Results 02/26/18 16:53 VBG pH 7.38 POC VBG pCO2 45.4 POC VBG pO2 39.2 Mixed VBG HCO3 26.4 H - RADIOLOGY Radiology Studies Ordered: Category Date Time Status CHEST X-RAY PORTABLE* [RAD] Stat Radiology 02/26/18 16:30 Ordered - Medications Given in the ED: ED Medications Discontinued Medications Generic Name Dose Route Start Last Admin Trade Name Fer PRN Reason Stop Dose Admin Acetaminophen 1,000 mg 02/26/18 16:56 02/26/18 17:11 Ofirmev Injection - IVPB 02/26/18 16:57 1,000 mg ONCE ONE Administration Albuterol/Ipratropium 1 amp 02/26/18 16:51 02/26/18 17:10 Duoneb - NEB 02/26/18 16:52 1 amp ONCE ONE Administration Medical Decision Making - Medical Decision Making 02/26/18 17:21 Patient is 87F here today with respiratory distress. Vitals notable for fever, tachycardia, tachypnea. Patient is septic. Septic workup initiated. Likely pneumonia, hospital acquired given recent admission. Will cover with vanc, zosyn , levofloxacin. Fluids given. EKG shows afib with rvr with no st elevations/ depressions. Will fluid resuscitate and give tylenol before addressing afib with rvr with rate control. Bedside US shows no fluid overload, will start with 1L NS. Pending cxr. Satting mid 90s on NRB. Will reassess, dispo icu vs tele. 02/26/18 17:25 CXR shows likely right lobe infiltrate. 02/26/18 18:05 Patient reassessed. Tylenol, 500cc fluids in. Antibiotics running. CXR shows likely right sided infiltrate. Patient still tachypneic to 30s. No improvement with duonebs, no history of copd/asthma. Will start on bipap for respiratory support. Lactate normal. 02/26/18 18:55 Patient reassessed after bipap. BPs slightly lower, MAP 66 after bipap started. Likely 2/2 decreased preload. Given more fluids. Patient alert, breathing at 22 times per minute, states that she feels better. Given second liter. BP cuff appropriately sized, MAP now 72. 02/26/18 19:46 Repeat BP 105/72. *DC/Admit/Observation/Transfer Diagnosis at time of Disposition: Pneumonia - Discharge Dispostion Condition at time of disposition: Stable Decision to Admit order: Yes - Referrals - Patient Instructions - Post Discharge Activity
[2018-02-26 17:28] LABS: INR 1.24 (0.83-1.09); PROTHROMBIN TIME (PATIENT) 14.7 SEC (9.7-13.0)
[2018-02-26] MEDS ORDERED: PIPERACILLIN/TAZOB 4.5 GM 4.5 GM/100 ML BAG IVPB ONE (17:31)
[2018-02-26 17:49] LABS: ALBUMIN 3.1 g/dl (3.4-5.0); ALK PHOS 96 U/L (45-117); ANION GAP 10 MMOL/L (8-16); BILIRUBIN,TOTAL 0.6 mg/dL (0.2-1); BLOOD UREA NITROGEN 29 mg/dL (7-18); CALCIUM 8.8 mg/dL (8.5-10.1); CHLORIDE 100 mmol/L (98-107); CO2 26 mmol/L (21-32); CREATININE 0.9 mg/dL (0.55-1.3); GLUCOSE,RANDOM 129 mg/dL (74-106); POTASSIUM 4.7 mmol/L (3.5-5.1); SGOT/AST 19 U/L (15-37); SGPT/ALT 24 U/L (13-61); SODIUM 136 mmol/L (136-145); TOT PROT 7.2 g/dl (6.4-8.2)
[2018-02-26 18:25] LABS: URINE APPEARANCE CLEAR; URINE BILIRUBIN NEGATIVE (<2.0 mg/dL); URINE COLOR YELLOW; URINE GLUCOSE (UA) NEGATIVE (NEGATIVE); URINE KETONE NEGATIVE (NEGATIVE); URINE LEUK ESTERASE NEGATIVE (NEGATIVE); URINE NITRITE NEGATIVE (NEGATIVE); URINE PROTEIN 1+ (NEGATIVE)
[2018-02-26 18:29] LABS: URINE HYALINE CAST 1 /lpf; URINE MUCUS RARE
[2018-02-26] MEDS ORDERED: VANCOMYCIN 1 GRAM (PRE-DOCKED) 1,000 MG/250 ML BAG IVPB ONE (18:41)
[2018-02-26] MEDS ORDERED: levETIRAcetam 500 MG TABLET (FP) PO ONE (22:26)
[2018-02-26] MEDS: levETIRAcetam 500 MG TABLET (FP) PO SCH (22:28)
--- NOTE | 2018-02-27 09:48 | PN ---
Progress Note (short form) - Note Progress Note: ID consult 87 yo female with afib, porcine AVR, recent SDH- now off a/c admitted with cough and fever at home did not respond to keflex required bipap in ed now off and feelling better influenza screen negative cxray right mid lung field infiltrate received zosyn/levaquin in ED will switch to zosyn, vanco one dose f/ninoska cultures get urinary antigens pneumonia-HAP subdural hematoma avr afib Problem List - Problems (1) Pneumonia Code(s): J18.9 - PNEUMONIA, UNSPECIFIED ORGANISM (2) Subdural hematoma, post-traumatic Code(s): S06.5X9A - TRAUM SUBDR HEM W LOC OF UNSP DURATION, INIT Qualifiers: Encounter type: initial encounter Loss of consciousness presence/duration: without LOC Qualified Code(s): S06.5X0A - Traumatic subdural hemorrhage without loss of consciousness, initial encounter (3) Aortic valve replaced Code(s): Z95.2 - PRESENCE OF PROSTHETIC HEART VALVE (4) Atrial fibrillation Code(s): I48.91 - UNSPECIFIED ATRIAL FIBRILLATION Qualifiers: Atrial fibrillation type: chronic Qualified Code(s): I48.2 - Chronic atrial fibrillation
[2018-02-27] MEDS ORDERED: amLODIPine BESYLATE 5 MG TABLET (FP) PO SCH (10:00)
--- NOTE | 2018-02-27 11:39 | CONS ---
DATE OF CONSULTATION: DATE OF DICTATION: 02/27/2018 INFECTIOUS DISEASE CONSULTATION REQUESTING PHYSICIAN: Terrance See MD HISTORY OF PRESENT ILLNESS: This is an 87-year-old woman admitted from home for fever and cough. She was diagnosed recently on January 26 of this year, with a subdural hematoma that was treated conservatively. She was discharged on the . Her anticoagulation was discontinued. She is now readmitted. She came to the emergency room overnight with complaints of shortness of breath and cough, with associated fever and chills. She was given Keflex for 2 days as an outpatient. There is no abdominal pain or chest pain. She reports feeing improved this morning. In the emergency room as well, she was noted to be in rapid atrial fibrillation, with the question of a right-sided infiltrate, and she was given Zosyn and Levaquin in the emergency room. This morning she is feeling better. She had required BiPAP overnight. Blood and urine cultures were sent from the emergency room. An influenza screen was done that is negative. PAST MEDICAL HISTORY: CVA, atrial fibrillation, aortic stenosis, hypertension, hyperlipidemia, breast cancer, osteoarthritis. PAST SURGICAL HISTORY: She is status post mastectomy and aortic valve replacement. ALLERGIES: She has no known drug allergies. MEDICATIONS: Her medications include: 1. Amlodipine. 2. Atorvastatin. 3. Lisinopril. 4. Lopressor. 5. Keppra. 6. Tylenol. FAMILY HISTORY: Noncontributory. SOCIAL HISTORY: She is [place]. She lives with her son. There is nocturnal history of any significant or substance use. PHYSICAL EXAMINATION: Vital Signs: Temperature 98.9, pulse 117, blood pressure 156/74, respiratory rate 24. She is on nasal cannula and off the BiPAP. HEENT: She is normocephalic. Her eyes are anicteric. Neck: Supple. Lungs: Bilateral rhonchi. Heart: Regular rate and rhythm. She is tachycardic. Abdomen: Soft, nontender. Extremities: Without edema. DIAGNOSTIC STUDIES: White count is 8.7, hemoglobin 13, platelets 216. BUN 29, creatinine 0.9. LFTs are normal. Troponin is 0.1. Urinalysis has 1 white cell. Her influenza screen is negative. Blood and urine cultures are pending. Chest x-ray: There is question of a right mid lung field infiltrate, along with a prominent mediastinum. SUMMARY: 1. This is an 87-year-old woman admitted with what appears to be pneumonia on x-ray. She has had fever and cough. She was recently in the hospital. Would continue Zosyn at this time. Would obtain Legionella urinary and pneumococcal antigen for further screening. Influenza screen was negative. One dose of vancomycin while awaiting blood culture results, given her history of aortic valve replacement. Further recommendations to follow. 2. Recent subdural hematoma. 3. History of aortic valve replacement, porcine. 4. History of atrial fibrillation. TIFFANIE POTTER M.D. [id number]
[2018-02-27] MEDS: METOPROLOL TARTRATE 50 MG TABLET (FP) PO SCH ×2 (12:05→21:54)
[2018-02-27] MEDS: levETIRAcetam 500 MG TABLET (FP) PO SCH ×2 (12:05→21:54)
[2018-02-27] MEDS: PIPERACILLIN/TAZOB 3.375 GM 3.375 GM in DEXTROSE 5%-WATER - 50 ML IVPB SCH ×2 (13:05→18:10)
[2018-02-27] MEDS ORDERED: DEXTROSE 5%-WATER - 50 ML IVPB ONE ×2 (13:06→17:47)
[2018-02-27] MEDS ORDERED: PIPERACILLIN/TAZOBACTAM 3.375 GM VIAL IVPB ONE ×2 (13:06→17:46)
--- NOTE | 2018-02-27 13:27 | EKG ---
Test Reason : Blood Pressure : / mmHG Vent. Rate : 120 BPM Atrial Rate : 110 BPM P-R Int : 000 ms QRS Dur : 070 ms QT Int : 304 ms P-R-T Axes : 000 000 020 degrees QTc Int : 429 ms ATRIAL FIBRILLATION WITH RAPID VENTRICULAR RESPONSE NONSPECIFIC ST ABNORMALITY ABNORMAL ECG WHEN COMPARED WITH ECG OF 26-JAN-2018 15:58, NO SIGNIFICANT CHANGE WAS FOUND Confirmed by DARBY REYES MD ([id number]) on 02/27/2018 1:27:09 PM Referred By: Confirmed By:DARBY REYES MD
--- NOTE | 2018-02-27 14:26 | CON.CARD ---
Consult Consult Specialty:: Cardiology Referred by:: Dr. 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 She also complained of cough, fever and chills. She denied chest pain or palpitations. She denied paroxysmal nocturnal dyspnea or orthopnea. She denied nausea, vomiting, diarrhea or abdominal pain. No headache or lightheadedness. - History Source History Provided By: Patient, Medical Record Limitations to Obtaining History: No Limitations - Past Medical History SUPPLY CATALOGUER: Yes: CVA (old CVA by CT scan) Cardio/Vascular: Yes: AFIB (on coumadin), Aortic Stenosis (s/p bovine AVR (21 mm Toan-Charles)), HTN, Hyperlipdemia Heme/Onc: Yes: Cancer (Breast CA) Musculoskeletal: Yes: Osteoarthritis - Past Surgical History Past Surgical History: Yes: Mastectomy (left), Valve Replacement (aortic ( procine)) - Alcohol/Substance Use Hx Alcohol Use: No - Smoking History Smoking history: Never smoked Have you smoked in the past 12 months: No - Social History ADL: Family Assistance History of Recent Travel: No Home Medications - Allergies Allergies/Adverse Reactions: Allergies Allergy/AdvReac Type Severity Reaction Status Date / Time No Known Allergies Allergy Verified 02/26/18 16:27 - Home Medications Home Medications: Ambulatory Orders Amlodipine Besylate [Norvasc -] 5 mg PO DAILY 01/26/18 Atorvastatin Ca [Lipitor] 20 mg PO HS 01/26/18 Lisinopril [Zestril] 5 mg PO DAILY 01/26/18 Metoprolol Tartrate [Lopressor -] 50 mg PO BID tablet 01/28/18 levETIRAcetam [Keppra -] 500 mg PO BID tablet 01/28/18 Acetaminophen [Tylenol] 650 mg PO Q6H PRN 02/26/18 Review of Systems - Review of Systems Constitutional: reports: Chills, Fever Cardiovascular: denies: Chest Pain, Palpitations, Shortness of Breath Respiratory: reports: Cough. denies: Hemoptysis, Orthopnea, PND, SOB, SOB on Exertion Gastrointestinal: denies: Abdominal Pain, Constipation, Diarrhea, Melena, Rectal Bleeding, Vomiting Musculoskeletal: denies: Back Pain, Joint Pain Neurological: reports: Syncope. denies: Dizziness, Headache, Numbness, Seizure , Tremors Vital Signs: Vital Signs Temperature 98.9 F 02/27/18 05:22 Pulse Rate 102 H 02/27/18 09:00 Respiratory Rate 18 02/27/18 09:00 Blood Pressure 124/64 02/27/18 09:00 O2 Sat by Pulse Oximetry (%) 95 02/27/18 11:21 Eyes: Yes: PERRL HENT: Yes: Atraumatic Neck: Yes: Supple Respiratory: Yes: CTA Bilaterally Gastrointestinal: Yes: Normal Bowel Sounds, Soft. No: Tenderness Cardiovascular: Yes: Pulse Irregular JVD: No Carotid Bruit: No PMI: Non-Displaced Heart Sounds: Yes: S1, S2 Murmur: Yes: Systolic Murmur, Grade 2 Edema: No - Other Data Labs, Other Data: CBC, BMP 02/26/18 17:15 02/26/18 16:53 INR, PTT INR 1.24 (0.83-1.09) H 02/26/18 16:53 Troponin, BNP 02/26/18 16:53 Troponin I 0.10 H Atrial fibrillation with nonspecific ST abnormality Imaging - Results Chest X-ray: Report Reviewed (Unremarkable) EKG: Report Reviewed Assessment/Plan 1. Clinical presentation suggests pneumonia 2. History of subdural hematoma 3. 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 Persistent AF on anticoagulation [id number] score of 5 6. Mitral valve regurgitation 7. HTN 8. Hypercholesterolemia 9. Carotid stenosis 10. History of breast CA s/p mastectomy 11. Degenerative joint disease PLAN: 1. Empiric antibiotic coverage 2. Continue Metoprolol. If need further rate control, Amlodipine can be switched to Diltiazem 3. Currently not on Coumadin due to history of traumatic SDH. ANTHONY occlusion device has been entertained in December when she was hospitalized 4. Statin therapy Further plans are to follow Georgi Avendano MD
--- NOTE | 2018-02-27 15:39 | HP ---
Admitting History and Physical - Primary Care Physician PCP: Terrance See (Dr Kennedy raines) - Admission Chief Complaint: labored breathing/cough History of Present Illness: 87F with history of afib, aortic valve replacement, HTN, HLD, here today complaining of shortness of breath for the past 4 days. She states that she has associated cough, fevers, and chills. Denies chest pain and leg swelling. Patient states that she was prescribed keflex and was improving two days ago, but got worse today sent in by Dr See when he heard diffuse rales on exam. Patient was admitted on 01/26 for subdural hematoma following a head injury while on a/c, it was conservatively managed; she was sent to SNF for rehab and released home prior to [facility]. No longer taking blood thinners as per chart. She was seen by her Carpenter and then her PCP prior to coming to ER. 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 s/p bovine AVR), HTN , Hyperlipdemia, Other (s/p AVR) Heme/Onc: Yes: Other (old Lt breast cancer; s/p mastectomy) Musculoskeletal: Yes: Osteoarthritis - Past Surgical History Past Surgical History: Yes: Mastectomy (left), Valve Replacement (aortic ( procine)) - Smoking History Smoking history: Never smoked Have you smoked in the past 12 months: No - Alcohol/Substance Use Hx Alcohol Use: No - Social History ADL: Family Assistance History of Recent Travel: No Home Medications - Allergies Allergies/Adverse Reactions: Allergies Allergy/AdvReac Type Severity Reaction Status Date / Time No Known Allergies Allergy Verified 02/26/18 16:27 - Home Medications Home Medications: Ambulatory Orders Amlodipine Besylate [Norvasc -] 5 mg PO DAILY 01/26/18 Atorvastatin Ca [Lipitor] 20 mg PO HS 01/26/18 Lisinopril [Zestril] 5 mg PO DAILY 01/26/18 Metoprolol Tartrate [Lopressor -] 50 mg PO BID tablet 01/28/18 levETIRAcetam [Keppra -] 500 mg PO BID tablet 01/28/18 Acetaminophen [Tylenol] 650 mg PO Q6H PRN 02/26/18 Family Disease History - Family Disease History Family History: Unable to Obtain Review of Systems Findings/Remarks: unable to obtain 2nd impaired cognition, and subsequent unreliability Physical Examination Vital Signs: Vital Signs Temperature 98.9 F 02/27/18 05:22 Pulse Rate 102 H 02/27/18 09:00 Respiratory Rate 18 02/27/18 09:00 Blood Pressure 124/64 02/27/18 09:00 O2 Sat by Pulse Oximetry (%) 95 02/27/18 14:36 Constitutional: Yes: No Distress Eyes: Yes: Conjunctiva Clear Neck: Yes: Supple Cardiovascular: Yes: Pulse Irregular Respiratory: Yes: Diminished Gastrointestinal: Yes: Normal Bowel Sounds, Soft ...Rectal Exam: Yes: Deferred Breast(s): Yes: WNL, Right Musculoskeletal: Yes: Other (degen changes) Extremities: Yes: WNL Edema: No Peripheral Pulses WNL: No Peripheral Pulses: Left Doralis Pedis: 0, Right Dorsalis Pedis: 0 Integumentary: Yes: Venous Stasis Changes Neurological: Yes: Other (drowsy but rrousable; follows some commands; able to move all E's when awake; no hypertonicity or flaccidity; no tremors; plantars neutral) Psychiatric: Yes: Other Labs: CBC, BMP 02/26/18 17:15 02/26/18 16:53 CBCD WBC 8.7 K/mm3 (4.0-10.0) 02/26/18 17:15 RBC 5.14 M/mm3 (3.60-5.2) 02/26/18 17:15 Hgb 13.0 GM/dL (10.7-15.3) 02/26/18 17:15 Hct 39.0 % (32.4-45.2) 02/26/18 17:15 MCV 75.9 fl (80-96) L 02/26/18 17:15 MCHC 33.4 g/dl (32.0-36.0) 02/26/18 17:15 RDW 18.0 % (11.6-15.6) H 02/26/18 17:15 Plt Count 216 K/MM3 (134-434) 02/26/18 17:15 MPV 8.3 fl (7.5-11.1) 02/26/18 17:15 CMP Sodium 136 mmol/L (136-145) 02/26/18 16:53 Potassium 4.7 mmol/L (3.5-5.1) 02/26/18 16:53 Chloride 100 mmol/L (98-107) 02/26/18 16:53 Carbon Dioxide 26 mmol/L (21-32) 02/26/18 16:53 Anion Gap 10 MMOL/L (8-16) 02/26/18 16:53 BUN 29 mg/dL (7-18) H 02/26/18 16:53 Creatinine 0.9 mg/dL (0.55-1.3) 02/26/18 16:53 Creat Clearance w eGFR 59.09 (>60) 02/26/18 16:53 Random Glucose 129 mg/dL (74-106) H 02/26/18 16:53 Calcium 8.8 mg/dL (8.5-10.1) 02/26/18 16:53 Total Bilirubin 0.6 mg/dL (0.2-1) 02/26/18 16:53 AST 19 U/L (15-37) 02/26/18 16:53 ALT 24 U/L (13-61) 02/26/18 16:53 Alkaline Phosphatase 96 U/L (45-117) 02/26/18 16:53 Total Protein 7.2 g/dl (6.4-8.2) 02/26/18 16:53 Albumin 3.1 g/dl (3.4-5.0) L 02/26/18 16:53 CARDIAC ENZYMES Troponin I 0.10 ng/ml (0.00-0.05) H 02/26/18 16:53 Urine Test Results Urine Color Yellow 02/26/18 17:34 Urine Appearance Clear 02/26/18 17:34 Urine pH 5.0 (5.0-8.0) D 02/26/18 17:34 Ur Specific Ephraim 1.024 (1.010-1.035) 02/26/18 17:34 Urine Protein 1+ (NEGATIVE) H 02/26/18 17:34 Urine Glucose (UA) Negative (NEGATIVE) 02/26/18 17:34 Urine Ketones Negative (NEGATIVE) 02/26/18 17:34 Urine Blood 1+ (NEGATIVE) H 02/26/18 17:34 Urine Nitrite Negative (NEGATIVE) 02/26/18 17:34 Urine Bilirubin Negative (<2.0 mg/dL) 02/26/18 17:34 Ur Leukocyte Esterase Negative (NEGATIVE) 02/26/18 17:34 Urine Mucus Rare 02/26/18 17:34 Imaging - Results Chest X-ray: Report Reviewed EKG: Report Reviewed Problem List - Problems (1) Pneumonia Assessment/Plan: based on clinical presentation to suggest pulm process and CXR reveals possible RLL or RML infiltrate. PLAN: supp Tx; IV Abs as ordered; will get chest CT Code(s): J18.9 - PNEUMONIA, UNSPECIFIED ORGANISM Qualifiers: Laterality: right (2) Atrial fibrillation Assessment/Plan: HR mildly tachy; cont BB Code(s): I48.91 - UNSPECIFIED ATRIAL FIBRILLATION Qualifiers: Atrial fibrillation type: chronic Qualified Code(s): I48.2 - Chronic atrial fibrillation (3) History of breast cancer in female Assessment/Plan: s/p Lt mastectomy; no active disease Code(s): Z85.3 - PERSONAL HISTORY OF MALIGNANT NEOPLASM OF BREAST (4) Hypertensive heart disease Assessment/Plan: on VICTORINO; CCB and BB; WIll check BMP; TNI mildly high (could be 2nd to demand ischemia) will recheck Code(s): I11.9 - HYPERTENSIVE HEART DISEASE WITHOUT HEART FAILURE Qualifiers: Heart failure presence: unspecified whether heart failure present Qualified Code(s): I11.9 - Hypertensive heart disease without heart failure (5) Subdural hematoma, post-traumatic Assessment/Plan: occured over 1 month ago 2nd fall at home while on a/c; under went SNF rehab; no longer on a/c as risk of falls too high Code(s): S06.5X9A - TRAUM SUBDR HEM W LOC OF UNSP DURATION, INIT Qualifiers: Encounter type: sequela Loss of consciousness presence/duration: without LOC Qualified Code(s): S06.5X0S - Traumatic subdural hemorrhage without loss of consciousness, sequela (6) Aortic valve replaced Assessment/Plan: stable Code(s): Z95.2 - PRESENCE OF PROSTHETIC HEART VALVE (7) Frailty syndrome in geriatric patient Assessment/Plan: may need further assistence at time of d/c or SNF for rehab Code(s): R54 - AGE-RELATED PHYSICAL DEBILITY (8) Hematuria Assessment/Plan: may need US Code(s): R31.9 - HEMATURIA, UNSPECIFIED Qualifiers: Hematuria type: asymptomatic microscopic Qualified Code(s): R31.21 - Asymptomatic microscopic hematuria Assessment/Plan 87 YO frail F who repesented in resp distress unresponsive to oral ABs; now being Tx for PNA ~~~~~~~~~~~~~~~~~~~~~~~~ Dr Benavides
[2018-02-27] MEDS ORDERED: VANCOMYCIN 1 GRAM (PRE-DOCKED) 1,000 MG/250 ML BAG IVPB ONE ×2 (18:00→19:15)
[2018-02-27] MEDS ORDERED: ALBUTEROL SO4 0.083% IH SOL 2.5 MG/3 ML VIAL.NEB. NEB ONE (23:02)
[2018-02-27] MEDS: guaiFENesin/CODEINE 5 ML UNIT-DOSE CUPS PO PRN (23:22)
[2018-02-27] MEDS: DOXYCYCLINE INJECTION 100 MG in DEXTROSE 5%-WATER - 100 ML IVPB SCH (23:23)
[2018-02-27] MEDS: ALBUTEROL SO4 0.083% IH SOL 2.5 MG/3 ML VIAL.NEB. NEB SCH (23:25)
[2018-02-28] MEDS ORDERED: PIPERACILLIN/TAZOBACTAM 3.375 GM VIAL IVPB ONE ×3 (03:25→16:33)
[2018-02-28] MEDS ORDERED: DEXTROSE 5%-WATER - 50 ML IVPB ONE ×3 (03:26→16:34)
[2018-02-28] MEDS: PIPERACILLIN/TAZOB 3.375 GM 3.375 GM in DEXTROSE 5%-WATER - 50 ML IVPB SCH ×3 (04:07→17:18)
[2018-02-28 07:16] LABS: HEMATOCRIT 33.5 % (32.4-45.2); HEMOGLOBIN 10.6 GM/dL (10.7-15.3); MCH 24.1 pg (25.7-33.7); MCHC 31.5 g/dl (32.0-36.0); MEAN CELL VOLUME 76.5 fl (80-96); MEAN PLT VOLUME 8.3 fl (7.5-11.1); PLATELET COUNT 145 K/MM3 (134-434); RBC 4.38 M/mm3 (3.60-5.2); RDW 17.8 % (11.6-15.6); WHITE BLOOD COUNT 7.2 K/mm3 (4.0-10.0)
[2018-02-28 07:52] LABS: ANION GAP 6 MMOL/L (8-16); BLOOD UREA NITROGEN 16 mg/dL (7-18); CALCIUM 7.8 mg/dL (8.5-10.1); CHLORIDE 105 mmol/L (98-107); CO2 29 mmol/L (21-32); CREATININE 0.6 mg/dL (0.55-1.3); GLUCOSE,RANDOM 98 mg/dL (74-106); N-TERMINAL BNP 3625.4 pg/ml (5-450); POTASSIUM 3.6 mmol/L (3.5-5.1); SODIUM 140 mmol/L (136-145)
[2018-02-28] MEDS: ALBUTEROL SO4 0.083% IH SOL 2.5 MG/3 ML VIAL.NEB. NEB SCH ×4 (09:00→20:42)
--- NOTE | 2018-02-28 09:17 | PN ---
Progress Note, Physician Chief Complaint: No new complaints History of Present Illness: Patient was seen and examined. Awake. Chart was reviewed Denies chest pain. Intermittent cough AF with periods of RVR - Current Medication List Current Medications: Active Medications Albuterol Sulfate (Ventolin 0.083% Nebulizer Soln -) 1 amp NEB RQID [facility] Last Admin: 02/27/18 23:25 Dose: 1 amp Diltiazem HCl (Cardizem Cd -) 120 mg PO DAILY [facility] Guaifenesin/Codeine Phosphate (Robitussin Ac -) 5 ml PO Q6H PRN PRN Reason: COUGH Last Admin: 02/27/18 23:22 Dose: 5 ml Piperacillin Sod/Tazobactam (Sod 3.375 gm/ Dextrose) 50 mls @ 100 mls/hr IVPB Q8H-IV [facility]; Protocol Last Admin: 02/28/18 04:07 Dose: 100 mls/hr Doxycycline Hyclate 100 mg/ (Dextrose) 100 mls @ 100 mls/hr IVPB BID [facility] Last Admin: 02/27/18 23:23 Dose: 100 mls/hr Levetiracetam (Keppra -) 500 mg PO BID [facility] Last Admin: 02/27/18 21:54 Dose: 500 mg Metoprolol Tartrate (Lopressor -) 50 mg PO BID [facility] Last Admin: 02/27/18 21:54 Dose: 50 mg - Objective Vital Signs: Vital Signs Temperature 98 F 02/28/18 05:50 Pulse Rate 117 H 02/28/18 05:50 Respiratory Rate 24 H 02/28/18 05:50 Blood Pressure 107/72 02/28/18 05:50 O2 Sat by Pulse Oximetry (%) 96 02/28/18 01:08 HENT: Yes: Atraumatic Neck: Yes: Supple Cardiovascular: Yes: Tachycardia, Pulse Irregular, S1, S2 Respiratory: Yes: Diminished Gastrointestinal: Yes: Normal Bowel Sounds, Soft. No: Tenderness Edema: No Additional Findings/Remarks: - Review of Systems Constitutional: reports: Chills, Fever Cardiovascular: denies: Chest Pain, Palpitations, Shortness of Breath Respiratory: reports: Cough. denies: Hemoptysis, Orthopnea, PND, SOB, SOB on Exertion Gastrointestinal: denies: Abdominal Pain, Constipation, Diarrhea, Melena, Rectal Bleeding, Vomiting Musculoskeletal: denies: Back Pain, Joint Pain Neurological: denies: Syncope. denies: Dizziness, Headache, Numbness, Seizure, Tremors Labs: CBC, BMP 02/28/18 06:15 02/28/18 06:15 INR, PTT INR 1.24 (0.83-1.09) H 02/26/18 16:53 Problem List - Problems (1) S/P AVR Code(s): Z95.2 - PRESENCE OF PROSTHETIC HEART VALVE (2) Hypertensive heart disease Code(s): I11.9 - HYPERTENSIVE HEART DISEASE WITHOUT HEART FAILURE Qualifiers: Heart failure presence: unspecified whether heart failure present Qualified Code(s): I11.9 - Hypertensive heart disease without heart failure (3) Pneumonia Code(s): J18.9 - PNEUMONIA, UNSPECIFIED ORGANISM Qualifiers: Laterality: right (4) Anemia Code(s): D64.9 - ANEMIA, UNSPECIFIED Qualifiers: Anemia type: unspecified type Qualified Code(s): D64.9 - Anemia, unspecified (5) Atrial fibrillation Code(s): I48.91 - UNSPECIFIED ATRIAL FIBRILLATION Qualifiers: Atrial fibrillation type: chronic Qualified Code(s): I48.2 - Chronic atrial fibrillation (6) History of breast cancer in female Code(s): Z85.3 - PERSONAL HISTORY OF MALIGNANT NEOPLASM OF BREAST (7) Subdural hematoma, post-traumatic Code(s): S06.5X9A - TRAUM SUBDR HEM W LOC OF UNSP DURATION, INIT Qualifiers: Encounter type: sequela Loss of consciousness presence/duration: without LOC Qualified Code(s): S06.5X0S - Traumatic subdural hemorrhage without loss of consciousness, sequela Assessment/Plan 1. Clinical presentation suggests pneumonia 2. History of subdural hematoma 3. 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 Persistent AF on anticoagulation [id number] score of 5 6. Mitral valve regurgitation 7. HTN 8. Hypercholesterolemia 9. Carotid stenosis 10. History of breast CA s/p mastectomy 11. Degenerative joint disease PLAN: 1. Empiric antibiotic coverage 2. Continue Metoprolol. Continue Diltiazem and uptitrate to rate control - increase to 180 mg QD 3. Currently not on Coumadin due to history of traumatic SDH. ANTHONY occlusion device has been entertained in December when she was hospitalized 4. Statin therapy Further plans are to follow Georgi Avendano MD
[2018-02-28] MEDS ORDERED: PT OWN MED DRAWER 7, Y5N ONE ×2 (09:58→21:52)
[2018-02-28] MEDS: guaiFENesin/CODEINE 5 ML UNIT-DOSE CUPS PO PRN (10:06)
[2018-02-28] MEDS: METOPROLOL TARTRATE 50 MG TABLET (FP) PO SCH ×2 (10:06→21:55)
[2018-02-28] MEDS: levETIRAcetam 500 MG TABLET (FP) PO SCH ×2 (10:06→21:55)
[2018-02-28] MEDS: DOXYCYCLINE INJECTION 100 MG in DEXTROSE 5%-WATER - 100 ML IVPB SCH ×2 (10:07→21:55)
[2018-02-28] MEDS: FUROSEMIDE 40 MG/4 ML INJECTABLE VIAL IVPUSH SCH (12:13)
--- NOTE | 2018-02-28 14:55 | PN ---
Progress Note (short form) - Note Progress Note: no complaints Vital Signs Period Temp Pulse Resp BP Sys/Taylor Pulse Ox Last 24 Hr 98 F-98.7 F 115-124 20-24 107-153/63-72 95-97 cor-rrr lungs decreased bs at bases abd soft,nt ext no edema CBC, BMP 02/28/18 06:15 02/28/18 06:15 Microbiology 02/26/18 17:34 Urine - Urine Clean Catch Urine Culture - Final NO GROWTH OBTAINED 02/26/18 16:53 Blood - Peripheral Venous Blood Culture - Preliminary NO GROWTH OBTAINED AFTER 24 HOURS, INCUBATION TO CONTINUE FOR 4 DAYS. 02/26/18 16:53 Blood - Peripheral Venous Blood Culture - Preliminary NO GROWTH OBTAINED AFTER 24 HOURS, INCUBATION TO CONTINUE FOR [address]- cardiomegal, congestion, bilateral effusions and possible rul and rml infiltrates Current Medications Albuterol Sulfate (Ventolin 0.083% Nebulizer Soln -) 1 amp NEB RQID ON [facility] OF [facility] Last Admin: 02/28/18 12:00 Dose: 1 amp Diltiazem HCl (Cardizem Cd -) 180 mg PO DAILY [facility] Last Admin: 02/28/18 10:20 Dose: 180 mg Furosemide (Lasix Injection -) 20 mg IVPUSH DAILY [facility] Last Admin: 02/28/18 12:13 Dose: 20 mg Guaifenesin/Codeine Phosphate (Robitussin Ac -) 5 ml PO Q6H PRN PRN Reason: COUGH Last Admin: 02/28/18 10:06 Dose: 5 ml Piperacillin Sod/Tazobactam (Sod 3.375 gm/ Dextrose) 50 mls @ 100 mls/hr IVPB Q8H-IV [facility]; Protocol Last Admin: 02/28/18 10:06 Dose: 100 mls/hr Doxycycline Hyclate 100 mg/ (Dextrose) 100 mls @ 100 mls/hr IVPB BID [facility] Last Admin: 02/28/18 10:07 Dose: 100 mls/hr Levetiracetam (Keppra -) 500 mg PO BID [facility] Last Admin: 02/28/18 10:06 Dose: 500 mg Metoprolol Tartrate (Lopressor -) 50 mg PO BID [facility] Last Admin: 02/28/18 10:06 Dose: 50 mg Spironolactone (Aldactone -) 25 mg PO DAILY [facility] a/p pneumonia-HAP cannot r/o component of CHF as well continue zosyn/doxycycline f/u urinary antigens subdural hematoma-off a/c avr-porcine afib-rate control Problem List - Problems (1) Pneumonia Code(s): J18.9 - PNEUMONIA, UNSPECIFIED ORGANISM Qualifiers: Laterality: right (2) Subdural hematoma, post-traumatic Code(s): S06.5X9A - TRAUM SUBDR HEM W LOC OF UNSP DURATION, INIT Qualifiers: Encounter type: sequela Loss of consciousness presence/duration: without LOC Qualified Code(s): S06.5X0S - Traumatic subdural hemorrhage without loss of consciousness, sequela (3) Aortic valve replaced Code(s): Z95.2 - PRESENCE OF PROSTHETIC HEART VALVE (4) Atrial fibrillation Code(s): I48.91 - UNSPECIFIED ATRIAL FIBRILLATION Qualifiers: Atrial fibrillation type: chronic Qualified Code(s): I48.2 - Chronic atrial fibrillation
--- NOTE | 2018-02-28 17:26 | PN ---
Progress Note (short form) - Note Progress Note: ################################### cover for Dr See Current Medications Albuterol Sulfate (Ventolin 0.083% Nebulizer Soln -) 1 amp NEB RQID [facility] Last Admin: 02/28/18 16:18 Dose: 1 amp Diltiazem HCl (Cardizem Cd -) 180 mg PO DAILY [facility] Last Admin: 02/28/18 10:20 Dose: 180 mg Furosemide (Lasix Injection -) 20 mg IVPUSH DAILY [facility] Last Admin: 02/28/18 12:13 Dose: 20 mg Guaifenesin/Codeine Phosphate (Robitussin Ac -) 5 ml PO Q6H PRN PRN Reason: COUGH Last Admin: 02/28/18 10:06 Dose: 5 ml Piperacillin Sod/Tazobactam (Sod 3.375 gm/ Dextrose) 50 mls @ 100 mls/hr IVPB Q8H-IV [facility]; Protocol Last Admin: 02/28/18 17:18 Dose: 100 mls/hr Doxycycline Hyclate 100 mg/ (Dextrose) 100 mls @ 100 mls/hr IVPB BID [facility] Last Admin: 02/28/18 10:07 Dose: 100 mls/hr Levetiracetam (Keppra -) 500 mg PO BID [facility] Last Admin: 02/28/18 10:06 Dose: 500 mg Metoprolol Tartrate (Lopressor -) 50 mg PO BID [facility] Last Admin: 02/28/18 10:06 Dose: 50 mg Spironolactone (Aldactone -) 25 mg PO DAILY [facility] Laboratory Results - last 24 hr 02/28/18 02/28/18 02/28/18 06:15 06:15 06:15 WBC 7.2 RBC 4.38 Hgb 10.6 L Hct 33.5 MCV 76.5 L MCH 24.1 L MCHC 31.5 L RDW 17.8 H Plt Count 145 D MPV 8.3 Sodium 140 Potassium 3.6 Chloride 105 Carbon Dioxide 29 Anion Gap 6 L BUN 16 Creatinine 0.6 Creat Clearance w eGFR > 60 Random Glucose 98 Hemoglobin A1c % 7.1 H Calcium 7.8 L Creatine Kinase Troponin I B-Natriuretic Peptide 3625.4 H TSH 2.60 02/28/18 06:15 WBC RBC Hgb Hct MCV MCH MCHC RDW Plt Count MPV Sodium Potassium Chloride Carbon Dioxide Anion Gap BUN Creatinine Creat Clearance w eGFR Random Glucose Hemoglobin A1c % Calcium Creatine Kinase 25 L Troponin I 0.04 B-Natriuretic Peptide TSH Vital Signs Temperature 98.8 F 02/28/18 15:54 Pulse Rate 112 H 02/28/18 15:54 Respiratory Rate 22 H 02/28/18 15:54 Blood Pressure 102/56 L 02/28/18 15:54 O2 Sat by Pulse Oximetry (%) 96 02/28/18 01:08 CC;; does not feel well ```````````````````````````` skin--NL color eyes--anicteric lungs --dimnished heart--Irreg abd--soft ext--no edema neuro--awake; cogn impaired; good eye contact `````````````````````````````````````````````` Summ > CHF--as per chest CT and high BNP; as a cause of her resp distress along with Rt lung infiltrates also seen by chest CT: PLAN::: IV Abs as ordered, and start diureses; may need ARB however BP is a bit too low now; will order echo > ATF--rate still fast on BB; started on CCB as well by Cardio. Fast HR could have precipitated CHF, and vasc congestion puts her at risk for PNA > PNA--right side; see CT report; cont current Abs > High W6p--dioo 7.0; suggesting DM as well; Glucose is WNL but will check BGM, and change diet accordingly > anemia--drop in count noted; will start H2 isai; check Iron and cbc ```````````````````````````````````````` Dr Benavides Problem List - Problems (1) Pneumonia Code(s): J18.9 - PNEUMONIA, UNSPECIFIED ORGANISM Qualifiers: Laterality: right (2) Atrial fibrillation Code(s): I48.91 - UNSPECIFIED ATRIAL FIBRILLATION Qualifiers: Atrial fibrillation type: chronic Qualified Code(s): I48.2 - Chronic atrial fibrillation (3) History of breast cancer in female Code(s): Z85.3 - PERSONAL HISTORY OF MALIGNANT NEOPLASM OF BREAST (4) Hypertensive heart disease Code(s): I11.9 - HYPERTENSIVE HEART DISEASE WITHOUT HEART FAILURE Qualifiers: Heart failure presence: unspecified whether heart failure present Qualified Code(s): I11.9 - Hypertensive heart disease without heart failure (5) Subdural hematoma, post-traumatic Code(s): S06.5X9A - TRAUM SUBDR HEM W LOC OF UNSP DURATION, INIT Qualifiers: Encounter type: sequela Loss of consciousness presence/duration: without LOC Qualified Code(s): S06.5X0S - Traumatic subdural hemorrhage without loss of consciousness, sequela (6) Aortic valve replaced Code(s): Z95.2 - PRESENCE OF PROSTHETIC HEART VALVE (7) Frailty syndrome in geriatric patient Code(s): R54 - AGE-RELATED PHYSICAL DEBILITY (8) Hematuria Code(s): R31.9 - HEMATURIA, UNSPECIFIED Qualifiers: Hematuria type: asymptomatic microscopic Qualified Code(s): R31.21 - Asymptomatic microscopic hematuria
[2018-03-01] MEDS ORDERED: DEXTROSE 5%-WATER - 50 ML IVPB ONE ×3 (01:17→15:58)
[2018-03-01] MEDS ORDERED: PIPERACILLIN/TAZOBACTAM 3.375 GM VIAL IVPB ONE ×3 (01:17→15:58)
[2018-03-01] MEDS: PIPERACILLIN/TAZOB 3.375 GM 3.375 GM in DEXTROSE 5%-WATER - 50 ML IVPB SCH ×3 (01:30→17:00)
[2018-03-01 06:53] LABS: HEMATOCRIT 32.8 % (32.4-45.2); HEMOGLOBIN 10.3 GM/dL (10.7-15.3); MCH 24.2 pg (25.7-33.7); MCHC 31.4 g/dl (32.0-36.0); MEAN PLT VOLUME 8.5 fl (7.5-11.1); PLATELET COUNT 149 K/MM3 (134-434); RBC 4.27 M/mm3 (3.60-5.2); RDW 18.2 % (11.6-15.6); WHITE BLOOD COUNT 7.6 K/mm3 (4.0-10.0)
[2018-03-01 07:26] LABS: ANION GAP 7 MMOL/L (8-16); BLOOD UREA NITROGEN 18 mg/dL (7-18); CHLORIDE 102 mmol/L (98-107); CO2 30 mmol/L (21-32); CREATININE 0.6 mg/dL (0.55-1.3); GLUCOSE,RANDOM 101 mg/dL (74-106); POTASSIUM 3.4 mmol/L (3.5-5.1); SODIUM 139 mmol/L (136-145)
[2018-03-01] MEDS: ALBUTEROL SO4 0.083% IH SOL 2.5 MG/3 ML VIAL.NEB. NEB SCH ×4 (07:48→21:55)
[2018-03-01] MEDS ORDERED: POTASSIUM CHLORIDE TABS 10 MEQ TABLET.ER (FP) PO ONE (09:00)
[2018-03-01] MEDS: DOXYCYCLINE INJECTION 100 MG in DEXTROSE 5%-WATER - 100 ML IVPB SCH ×2 (09:22→22:01)
[2018-03-01] MEDS: levETIRAcetam 500 MG TABLET (FP) PO SCH ×2 (09:23→22:01)
[2018-03-01] MEDS: RANITIDINE HCL 150 MG TABLET (FP) PO SCH (09:23)
[2018-03-01] MEDS: SPIRONOLACTONE 25 MG TABLET (FP) PO SCH (09:23)
[2018-03-01] MEDS: METOPROLOL TARTRATE 50 MG TABLET (FP) PO SCH ×2 (09:23→22:01)
[2018-03-01] MEDS: FUROSEMIDE 40 MG/4 ML INJECTABLE VIAL IVPUSH SCH (09:23)
--- NOTE | 2018-03-01 11:09 | PN ---
Progress Note, Physician Chief Complaint: No new complaints History of Present Illness: Patient was seen and examined. Awake. Chart was reviewed Denies chest pain. Intermittent cough AF with periods of RVR - Current Medication List Current Medications: Active Medications Albuterol Sulfate (Ventolin 0.083% Nebulizer Soln -) 1 amp NEB RQID [facility] Last Admin: 03/01/18 07:48 Dose: 1 amp Diltiazem HCl (Cardizem Cd -) 180 mg PO DAILY [facility] Last Admin: 03/01/18 09:23 Dose: 180 mg Furosemide (Lasix Injection -) 20 mg IVPUSH DAILY [facility] Last Admin: 03/01/18 09:23 Dose: 20 mg Piperacillin Sod/Tazobactam (Sod 3.375 gm/ Dextrose) 50 mls @ 100 mls/hr IVPB Q8H-IV [facility]; Protocol Last Admin: 03/01/18 09:24 Dose: 100 mls/hr Doxycycline Hyclate 100 mg/ (Dextrose) 100 mls @ 100 mls/hr IVPB BID [facility] Last Admin: 03/01/18 09:22 Dose: 100 mls/hr Levetiracetam (Keppra -) 500 mg PO BID [facility] Last Admin: 03/01/18 09:23 Dose: 500 mg Metoprolol Tartrate (Lopressor -) 50 mg PO BID [facility] Last Admin: 03/01/18 09:23 Dose: 50 mg Ranitidine HCl (Zantac -) 150 mg PO DAILY [facility] Last Admin: 03/01/18 09:23 Dose: 150 mg Spironolactone (Aldactone -) 25 mg PO DAILY [facility] Last Admin: 03/01/18 09:23 Dose: 25 mg - Objective Vital Signs: Vital Signs Temperature 97.9 F 03/01/18 09:00 Pulse Rate 120 H 03/01/18 09:00 Respiratory Rate 20 03/01/18 09:00 Blood Pressure 134/70 03/01/18 09:00 O2 Sat by Pulse Oximetry (%) 95 03/01/18 09:00 Eyes: Yes: PERRL HENT: Yes: Atraumatic Neck: Yes: Supple Cardiovascular: Yes: Tachycardia, Pulse Irregular, S1, S2 Respiratory: Yes: Diminished, Wheezes Gastrointestinal: Yes: Normal Bowel Sounds, Soft. No: Tenderness Edema: No Additional Findings/Remarks: - Review of Systems Constitutional: denies: Chills, Fever Cardiovascular: denies: Chest Pain, Palpitations, Shortness of Breath Respiratory: reports: Cough. denies: Hemoptysis, Orthopnea, PND, SOB, SOB on Exertion Gastrointestinal: denies: Abdominal Pain, Constipation, Diarrhea, Melena, Rectal Bleeding, Vomiting Musculoskeletal: denies: Back Pain, Joint Pain Neurological: denies: Syncope. denies: Dizziness, Headache, Numbness, Seizure, Tremors Labs: CBC, BMP 03/01/18 05:30 03/01/18 05:30 INR, PTT INR 1.24 (0.83-1.09) H 02/26/18 16:53 Problem List - Problems (1) S/P AVR Code(s): Z95.2 - PRESENCE OF PROSTHETIC HEART VALVE (2) Hypertensive heart disease Code(s): I11.9 - HYPERTENSIVE HEART DISEASE WITHOUT HEART FAILURE Qualifiers: Heart failure presence: unspecified whether heart failure present Qualified Code(s): I11.9 - Hypertensive heart disease without heart failure (3) Pneumonia Code(s): J18.9 - PNEUMONIA, UNSPECIFIED ORGANISM Qualifiers: Laterality: right (4) Anemia Code(s): D64.9 - ANEMIA, UNSPECIFIED Qualifiers: Anemia type: unspecified type Qualified Code(s): D64.9 - Anemia, unspecified (5) Atrial fibrillation Code(s): I48.91 - UNSPECIFIED ATRIAL FIBRILLATION Qualifiers: Atrial fibrillation type: chronic Qualified Code(s): I48.2 - Chronic atrial fibrillation (6) History of breast cancer in female Code(s): Z85.3 - PERSONAL HISTORY OF MALIGNANT NEOPLASM OF BREAST (7) Subdural hematoma, post-traumatic Code(s): S06.5X9A - TRAUM SUBDR HEM W LOC OF UNSP DURATION, INIT Qualifiers: Encounter type: sequela Loss of consciousness presence/duration: without LOC Qualified Code(s): S06.5X0S - Traumatic subdural hemorrhage without loss of consciousness, sequela Assessment/Plan 1. Clinical presentation suggests pneumonia 2. History of subdural hematoma 3. 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 Persistent AF on anticoagulation [id number] score of 5 6. Mitral valve regurgitation 7. HTN 8. Hypercholesterolemia 9. Carotid stenosis 10. History of breast CA s/p mastectomy 11. Degenerative joint disease PLAN: 1. Empiric antibiotic coverage 2. Continue Metoprolol. Continue Diltiazem and uptitrate to rate control - increase to 240 mg QD 3. Currently not on Coumadin due to history of traumatic SDH. ANTHONY occlusion device has been entertained in December when she was hospitalized 4. Statin therapy Further plans are to follow Georgi Avendano MD
--- NOTE | 2018-03-01 13:58 | ECHO ---
Name: GERMAINE SUMNER Exam:Adult Echocardiogram Study Date: 03/01/2018 08:14 AM Age: 87 yrs Reason For Study: CHF Height: 61 in Weight: 125 lb BSA: 1.5 m2 MMode/2D Measurements & Calculations IVSd: 1.6 cm Ao root diam: 2.8 cm LVIDd: 3.2 cm LA dimension: 4.5 cm LVIDs: 2.5 cm LVPWd: 1.1 cm EDV(Teich): 41.8 ml LVOT diam: 2.0 cm ESV(Teich): 22.0 ml LAV (MOD-bp): 78.6 ml Doppler Measurements & Calculations MV E max brady: 109.0 cm/sec Ao V2 max: 320.8 cm/sec MV A max brady: 53.3 cm/sec Ao max P.3 mmHg MV E/A: 2.0 Ao V2 mean: 225.8 cm/sec MV dec time: 0.12 sec Ao mean P.4 mmHg Ao V2 VTI: 55.5 cm DEB(I,D): 0.90 cm2 AI P1/2t: 305.3 msec DEB(V,D): 0.89 cm2 AI max brady: 411.7 cm/sec LV V1 max P.4 mmHg AI max P.8 mmHg LV V1 mean P.1 mmHg AI dec slope: 394.9 cm/sec2 LV V1 max: 91.7 cm/sec LV V1 mean: 69.4 cm/sec LV V1 VTI: 16.1 cm MR max brady: 538.2 cm/sec SV(LVOT): 50.0 ml MR max P.8 mmHg TR max brady: 302.7 cm/sec Med Peak E' Brady: 9.2 cm/sec TR max P.7 mmHg Med E/e': 11.8 Lat Peak E' Brady: 9.7 cm/sec Lat E/e': 11.3 PI Vmax: 93.7 cm/sec Procedure A complete two-dimensional transthoracic echocardiogram was performed (2D, M-mode, Doppler and color flow Doppler). Left Ventricle The left ventricle is normal in size. There is moderate concentric left ventricular hypertrophy. Left ventricular systolic function is normal. Ejection Fraction = 55-60%. No regional wall motion abnormal ities noted. Right Ventricle The right ventricle is normal size. The right ventricular systolic function is normal. Atria The left atrium is severely dilated. LA volume index is 51 ml/m2. Right atrial size is normal. Mitral Valve The mitral valve is normal in structure and function. There is mild to moderate mitral regurgitation. Tricuspid Valve The tricuspid valve is normal in structure and function. There is mild to moderate tricuspid regurgit ation. Pulmonary artery systolic pressure is at least 40 mmHg assuming RA pressure of 3 mmHg (normal IVC and >50% collapse). Aortic Valve There is mild to moderate aortic valve thickening. Moderate to severe valvular aortic stenosis. The c alculated aortic valve area using the continuity equation is 0.8 cm2. Aortic mean pressure gradient= 25 mmHg. D I (dimensionless index) is 0.28. Mild aortic regurgitation. Pulmonic Valve The pulmonic valve is not well visualized. Great Vessels The aortic root is normal size. Pericardium/Pleura There is no pericardial effusion. Interpretation Summary The left ventricle is normal in size. There is moderate concentric left ventricular hypertrophy. Left ventricular systolic function is normal. No regional wall motion abnormalities noted. Ejection Fraction = 55-60%. The right ventricular systolic function is normal. The left atrium is severely dilated. LA volume index is 51 ml/m2 Right atrial size is normal. There is mild to moderate mitral regurgitation. There is mild to moderate tricuspid regurgitation. Pulmonary artery systolic pressure is at least 40 mmHg assuming RA pressure of 3 mmHg (normal IVC and >50% collapse) There is mild to moderate aortic valve thickening. Moderate to severe valvular aortic stenosis. The calculated aortic valve area using the continuity equation is 0.8 cm2. Aortic mean pressure gradient= 25 mmHg DI (dimensionless index) is 0.28 Mild aortic regurgitation. There is no pericardial effusion. Previous study is not available for comparison Georgi Avendano MD 03/01/2018 01:58 PM
[2018-03-01] MEDS ORDERED: ACETAMINOPHEN 325 MG TABLET (FP) PO PRN (15:22)
[2018-03-01] MEDS ORDERED: ACETAMINOPHEN 325 MG TABLET (FP) ONE (15:29)
--- NOTE | 2018-03-01 17:21 | PN ---
Progress Note, Physician History of Present Illness: Awake, alert Supine in bed Appears slightly tachypneic at rest + cough noted Low grade fever - Current Medication List Current Medications: Active Medications Acetaminophen (Tylenol -) 650 mg PO Q6H PRN PRN Reason: FEVER Last Admin: 03/01/18 15:30 Dose: 650 mg Albuterol Sulfate (Ventolin 0.083% Nebulizer Soln -) 1 amp NEB RQID [facility] Last Admin: 03/01/18 16:15 Dose: Not Given Diltiazem HCl (Cardizem Cd -) 240 mg PO DAILY [facility] Furosemide (Lasix Injection -) 20 mg IVPUSH DAILY [facility] Last Admin: 03/01/18 09:23 Dose: 20 mg Piperacillin Sod/Tazobactam (Sod 3.375 gm/ Dextrose) 50 mls @ 100 mls/hr IVPB Q8H-IV [facility]; Protocol Last Admin: 03/01/18 17:00 Dose: 100 mls/hr Doxycycline Hyclate 100 mg/ (Dextrose) 100 mls @ 100 mls/hr IVPB BID [facility] Last Admin: 03/01/18 09:22 Dose: 100 mls/hr Levetiracetam (Keppra -) 500 mg PO BID [facility] Last Admin: 03/01/18 09:23 Dose: 500 mg Metoprolol Tartrate (Lopressor -) 50 mg PO BID [facility] Last Admin: 03/01/18 09:23 Dose: 50 mg Ranitidine HCl (Zantac -) 150 mg PO DAILY [facility] Last Admin: 03/01/18 09:23 Dose: 150 mg Spironolactone (Aldactone -) 25 mg PO DAILY [facility] Last Admin: 03/01/18 09:23 Dose: 25 mg - Objective Vital Signs: Vital Signs Temperature 100.9 F H 03/01/18 14:16 Pulse Rate 95 H 03/01/18 14:16 Respiratory Rate 18 03/01/18 14:16 Blood Pressure 127/61 03/01/18 14:16 O2 Sat by Pulse Oximetry (%) 95 03/01/18 09:00 Constitutional: Yes: No Distress Cardiovascular: Yes: Regular Rate and Rhythm, S1, S2 Respiratory: Yes: Rhonchi Gastrointestinal: Yes: Normal Bowel Sounds, Soft Edema: Yes Edema: LLE: Trace, RLE: Trace Labs: CBC, BMP 03/01/18 05:30 03/01/18 05:30 INR, PTT INR 1.24 (0.83-1.09) H 02/26/18 16:53 Assessment/Plan Pneumonia Hx SDH Afib Continue empiric doxycycline/ zosyn
--- NOTE | 2018-03-01 19:50 | PN ---
Progress Note (short form) - Note Progress Note: Current Medications Acetaminophen (Tylenol -) 650 mg PO Q6H PRN PRN Reason: FEVER Last Admin: 03/01/18 15:30 Dose: 650 mg Albuterol Sulfate (Ventolin 0.083% Nebulizer Soln -) 1 amp NEB RQID [facility] Last Admin: 03/01/18 16:15 Dose: Not Given Diltiazem HCl (Cardizem Cd -) 240 mg PO DAILY [facility] Furosemide (Lasix Injection -) 20 mg IVPUSH DAILY [facility] Last Admin: 03/01/18 09:23 Dose: 20 mg Piperacillin Sod/Tazobactam (Sod 3.375 gm/ Dextrose) 50 mls @ 100 mls/hr IVPB Q8H-IV [facility]; Protocol Last Admin: 03/01/18 17:00 Dose: 100 mls/hr Doxycycline Hyclate 100 mg/ (Dextrose) 100 mls @ 100 mls/hr IVPB BID [facility] Last Admin: 03/01/18 09:22 Dose: 100 mls/hr Levetiracetam (Keppra -) 500 mg PO BID [facility] Last Admin: 03/01/18 09:23 Dose: 500 mg Metoprolol Tartrate (Lopressor -) 50 mg PO BID [facility] Last Admin: 03/01/18 09:23 Dose: 50 mg Ranitidine HCl (Zantac -) 150 mg PO DAILY [facility] Last Admin: 03/01/18 09:23 Dose: 150 mg Spironolactone (Aldactone -) 25 mg PO DAILY [facility] Last Admin: 03/01/18 09:23 Dose: 25 mg Laboratory Results - last 24 hr 03/01/18 03/01/18 03/01/18 05:30 05:30 16:34 WBC 7.6 RBC 4.27 Hgb 10.3 L Hct 32.8 MCV 77.0 L MCH 24.2 L MCHC 31.4 L RDW 18.2 H Plt Count 149 MPV 8.5 Sodium 139 Potassium 3.4 L Chloride 102 Carbon Dioxide 30 Anion Gap 7 L BUN 18 Creatinine 0.6 Creat Clearance w eGFR > 60 POC Glucometer 114 Random Glucose 101 Calcium 8.0 L Ferritin 620.0 H Vital Signs Temperature 100.9 F H 03/01/18 14:16 Pulse Rate 95 H 03/01/18 14:16 Respiratory Rate 18 03/01/18 14:16 Blood Pressure 127/61 03/01/18 14:16 O2 Sat by Pulse Oximetry (%) 95 03/01/18 09:00 CC;;no complaints ``````````````````````````` skin--NL color; no redness around IV site eyes--anicteric lungs --diminished heart--Irreg abd--soft ext--no edema neuro--awake; cogn impaired; good eye contact `````````````````````````````````````````````` Summ > CHF--as per chest CT and high BNP; as a cause of her resp distress along with Rt lung infiltrates also seen by chest CT: PLAN:::on Lasix & aldactone; may need ARB however BP is a bit too low now; will order echo > ATF--rate still fast on BB; on CCB as well by Cardio. Fast HR could have precipitated CHF, and vasc congestion puts her at risk for PNA > PNA--right side; see CT report; cont current Abs > fever--low grade; non toxic appearing; see ID note > High M4k--iczl 7.0; suggesting DM as well; Glucose is WNL but will check BGM, and change diet accordingly > anemia--drop in count noted; will start H2 isai; cbc stable so far > constipation--Rx laxatives ```````````````````````````````````````` Dr Benavides Problem List - Problems (1) Pneumonia Code(s): J18.9 - PNEUMONIA, UNSPECIFIED ORGANISM Qualifiers: Laterality: right (2) Atrial fibrillation Code(s): I48.91 - UNSPECIFIED ATRIAL FIBRILLATION Qualifiers: Atrial fibrillation type: chronic Qualified Code(s): I48.2 - Chronic atrial fibrillation (3) History of breast cancer in female Code(s): Z85.3 - PERSONAL HISTORY OF MALIGNANT NEOPLASM OF BREAST (4) Hypertensive heart disease Code(s): I11.9 - HYPERTENSIVE HEART DISEASE WITHOUT HEART FAILURE Qualifiers: Heart failure presence: unspecified whether heart failure present Qualified Code(s): I11.9 - Hypertensive heart disease without heart failure (5) Subdural hematoma, post-traumatic Code(s): S06.5X9A - TRAUM SUBDR HEM W LOC OF UNSP DURATION, INIT Qualifiers: Encounter type: sequela Loss of consciousness presence/duration: without LOC Qualified Code(s): S06.5X0S - Traumatic subdural hemorrhage without loss of consciousness, sequela (6) Aortic valve replaced Code(s): Z95.2 - PRESENCE OF PROSTHETIC HEART VALVE (7) Frailty syndrome in geriatric patient Code(s): R54 - AGE-RELATED PHYSICAL DEBILITY (8) Hematuria Code(s): R31.9 - HEMATURIA, UNSPECIFIED Qualifiers: Hematuria type: asymptomatic microscopic Qualified Code(s): R31.21 - Asymptomatic microscopic hematuria
[2018-03-01] MEDS ORDERED: BISACODYL 5 MG TABLET.DR (FP) PO ONE (19:51)
[2018-03-01] MEDS ORDERED: PT OWN MED DRAWER 7, Y5N ONE (20:46)
[2018-03-01] MEDS: DOCUSATE SODIUM 100 MG CAPSULE (FP) PO SCH (22:01)
[2018-03-02] MEDS: PIPERACILLIN/TAZOB 3.375 GM 3.375 GM in DEXTROSE 5%-WATER - 50 ML IVPB SCH ×3 (03:30→17:40)
[2018-03-02] MEDS ORDERED: PIPERACILLIN/TAZOBACTAM 3.375 GM VIAL IVPB ONE ×3 (03:46→17:26)
[2018-03-02] MEDS ORDERED: DEXTROSE 5%-WATER - 50 ML IVPB ONE ×3 (03:46→17:26)
[2018-03-02 07:44] LABS: HEMATOCRIT 34.3 % (32.4-45.2); HEMOGLOBIN 10.8 GM/dL (10.7-15.3); MCHC 31.6 g/dl (32.0-36.0); MEAN PLT VOLUME 8.7 fl (7.5-11.1); PLATELET COUNT 166 K/MM3 (134-434); RBC 4.52 M/mm3 (3.60-5.2); RDW 18.2 % (11.6-15.6); WHITE BLOOD COUNT 7.2 K/mm3 (4.0-10.0)
[2018-03-02] MEDS: ALBUTEROL SO4 0.083% IH SOL 2.5 MG/3 ML VIAL.NEB. NEB SCH ×4 (07:50→21:00)
[2018-03-02 08:19] LABS: ANION GAP 8 MMOL/L (8-16); BLOOD UREA NITROGEN 17 mg/dL (7-18); CALCIUM 8.2 mg/dL (8.5-10.1); CHLORIDE 100 mmol/L (98-107); CO2 32 mmol/L (21-32); CREATININE 0.6 mg/dL (0.55-1.3); GLUCOSE,RANDOM 101 mg/dL (74-106); POTASSIUM 3.4 mmol/L (3.5-5.1); SODIUM 140 mmol/L (136-145)
[2018-03-02] MEDS: FUROSEMIDE 40 MG/4 ML INJECTABLE VIAL IVPUSH SCH (09:47)
[2018-03-02] MEDS: RANITIDINE HCL 150 MG TABLET (FP) PO SCH (09:47)
[2018-03-02] MEDS: DOCUSATE SODIUM 100 MG CAPSULE (FP) PO SCH ×2 (09:48→21:53)
[2018-03-02] MEDS: levETIRAcetam 500 MG TABLET (FP) PO SCH ×2 (09:48→21:54)
[2018-03-02] MEDS: SPIRONOLACTONE 25 MG TABLET (FP) PO SCH (09:48)
[2018-03-02] MEDS: METOPROLOL TARTRATE 50 MG TABLET (FP) PO SCH ×2 (09:48→21:54)
[2018-03-02] MEDS ORDERED: PT OWN MED DRAWER 7, Y5N ONE ×2 (10:15→21:34)
[2018-03-02] MEDS: DOXYCYCLINE INJECTION 100 MG in DEXTROSE 5%-WATER - 100 ML IVPB SCH ×2 (10:18→21:53)
--- NOTE | 2018-03-02 11:37 | PN ---
Progress Note (short form) - Note Progress Note: NEUROSURGERY H/o afib, aortic valve replacement, pulmonary HTN, HLD admitted with dyspnea of 4 day duration. + cough, fevers, and chills. Denies chest pain and leg swelling. 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 Was ambulating better in SNF and got home 1 week ago. Care d/w with Dr Baltazar last week re: AC need given underlying Afib/CHF vs SDH risks. Currently denies significant H/A, N/V, Sz, increasing weakness. Breathing and feeling better. No F/C. On emperic iv abx (zosyn and doxycycline) coverage. PMH: aortic valve stenosis s/p AVR (bioprosthesis Bovine pericardial valve), diastolic LV dysfunction, HTN, hypercholesterolemia, breast CA s/p mastectomy, AF on Coumadin, mitral valve regurgitation/HTN Sitting up in bed PE: AF, VSS HEENT- NC/AT; Neck- supple; Cor- Irreg; Abd- benign; Ext- no sign of DVT Speech- normal; A/A/OX2-3 CN- intact; Motor- 4+-5 B UE/LE; Sensation- intact LT; DTR- hyporeflexic WBC 7.2, Hgb 10.8; Na 140, K 3.4, Cr 0.6; INR 1.[address] : L frontoparietal chronic SDH with membrane and small acute component; thickest 13 mm; L cortical and ventricle mass effect, minimal shift; no change on initial vs f/u scan one day apart Chronic L hemispheric SDH On diuretic regimen for CHF, which occasionally could increase SDH size Repeat head CT to assess stability of SDH Further recommendations after head CT; will need to balance the risks of thromboembolic event against risks of recurrent/worsening SDH The above plan d/w patient
[2018-03-02] MEDS: POTASSIUM CHLORIDE TABS 20 MEQ TABLET.ER (FP) PO SCH (11:38)
--- NOTE | 2018-03-02 12:11 | PN ---
Progress Note, Physician Chief Complaint: No new complaints Neurosurgery input noted History of Present Illness: Patient was seen and examined. Awake. Chart was reviewed Denies chest pain. Intermittent cough AF with variable HR - Current Medication List Current Medications: Active Medications Acetaminophen (Tylenol -) 650 mg PO Q6H PRN PRN Reason: FEVER Last Admin: 03/01/18 15:30 Dose: 650 mg Albuterol Sulfate (Ventolin 0.083% Nebulizer Soln -) 1 amp NEB RQID [facility] Last Admin: 03/01/18 21:55 Dose: 1 amp Diltiazem HCl (Cardizem Cd -) 240 mg PO DAILY [facility] Last Admin: 03/02/18 09:48 Dose: 240 mg Docusate Sodium (Colace -) 100 mg PO BID [facility] Last Admin: 03/02/18 09:48 Dose: 100 mg Furosemide (Lasix Injection -) 20 mg IVPUSH DAILY [facility] Last Admin: 03/02/18 09:47 Dose: 20 mg Piperacillin Sod/Tazobactam (Sod 3.375 gm/ Dextrose) 50 mls @ 100 mls/hr IVPB Q8H-IV [facility]; Protocol Last Admin: 03/02/18 09:48 Dose: 100 mls/hr Doxycycline Hyclate 100 mg/ (Dextrose) 100 mls @ 100 mls/hr IVPB BID [facility] Last Admin: 03/02/18 10:18 Dose: 100 mls/hr Levetiracetam (Keppra -) 500 mg PO BID [facility] Last Admin: 03/02/18 09:48 Dose: 500 mg Metoprolol Tartrate (Lopressor -) 50 mg PO BID [facility] Last Admin: 03/02/18 09:48 Dose: 50 mg Potassium Chloride (K-Dur -) 20 meq PO DAILY [facility] Last Admin: 03/02/18 11:38 Dose: 20 meq Ranitidine HCl (Zantac -) 150 mg PO DAILY [facility] Last Admin: 03/02/18 09:47 Dose: 150 mg Spironolactone (Aldactone -) 25 mg PO DAILY [facility] Last Admin: 03/02/18 09:48 Dose: 25 mg - Objective Vital Signs: Vital Signs Temperature 98.7 F 03/02/18 10:00 Pulse Rate 101 H 03/02/18 10:00 Respiratory Rate 22 H 03/02/18 10:00 Blood Pressure 123/70 03/02/18 10:00 O2 Sat by Pulse Oximetry (%) 96 03/02/18 09:00 Eyes: Yes: PERRL HENT: Yes: Atraumatic Neck: Yes: Supple Cardiovascular: Yes: Pulse Irregular, S1, S2 Respiratory: Yes: Diminished Gastrointestinal: Yes: Normal Bowel Sounds, Soft. No: Tenderness Edema: No Additional Findings/Remarks: - Review of Systems Constitutional: denies: Chills, Fever Cardiovascular: denies: Chest Pain, Palpitations, Shortness of Breath Respiratory: reports: Cough. denies: Hemoptysis, Orthopnea, PND, SOB, SOB on Exertion Gastrointestinal: denies: Abdominal Pain, Constipation, Diarrhea, Melena, Rectal Bleeding, Vomiting Musculoskeletal: denies: Back Pain, Joint Pain Neurological: denies: Syncope. denies: Dizziness, Headache, Numbness, Seizure, Tremors Labs: CBC, BMP 03/02/18 06:25 03/02/18 06:25 Problem List - Problems (1) S/P AVR Code(s): Z95.2 - PRESENCE OF PROSTHETIC HEART VALVE (2) Hypertensive heart disease Code(s): I11.9 - HYPERTENSIVE HEART DISEASE WITHOUT HEART FAILURE Qualifiers: Heart failure presence: unspecified whether heart failure present Qualified Code(s): I11.9 - Hypertensive heart disease without heart failure (3) Pneumonia Code(s): J18.9 - PNEUMONIA, UNSPECIFIED ORGANISM Qualifiers: Laterality: right (4) Anemia Code(s): D64.9 - ANEMIA, UNSPECIFIED Qualifiers: Anemia type: unspecified type Qualified Code(s): D64.9 - Anemia, unspecified (5) Atrial fibrillation Code(s): I48.91 - UNSPECIFIED ATRIAL FIBRILLATION Qualifiers: Atrial fibrillation type: chronic Qualified Code(s): I48.2 - Chronic atrial fibrillation (6) History of breast cancer in female Code(s): Z85.3 - PERSONAL HISTORY OF MALIGNANT NEOPLASM OF BREAST (7) Subdural hematoma, post-traumatic Code(s): S06.5X9A - TRAUM SUBDR HEM W LOC OF UNSP DURATION, INIT Qualifiers: Encounter type: sequela Loss of consciousness presence/duration: without LOC Qualified Code(s): S06.5X0S - Traumatic subdural hemorrhage without loss of consciousness, sequela Assessment/Plan 1. Clinical presentation suggests pneumonia 2. History of subdural hematoma 3. 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 Persistent AF on anticoagulation [id number] score of 5 6. Mitral valve regurgitation 7. HTN 8. Hypercholesterolemia 9. Carotid stenosis 10. History of breast CA s/p mastectomy 11. Degenerative joint disease PLAN: 1. Empiric antibiotic coverage 2. Continue Metoprolol. Continue Diltiazem and uptitrate to rate control 3. Currently not on Coumadin due to history of traumatic SDH. ANTHONY occlusion device has been entertained in December when she was hospitalized. Repeat Head CT as per Neuosurgery and further plans are to follow 4. Statin therapy Further plans are to follow Georgi Avendano MD
--- NOTE | 2018-03-02 18:40 | PN ---
Progress Note (short form) - Note Progress Note: Current Medications Acetaminophen (Tylenol -) 650 mg PO Q6H PRN PRN Reason: FEVER Last Admin: 03/01/18 15:30 Dose: 650 mg Albuterol Sulfate (Ventolin 0.083% Nebulizer Soln -) 1 amp NEB RQID [facility] Last Admin: 03/02/18 15:34 Dose: Not Given Diltiazem HCl (Cardizem Cd -) 240 mg PO DAILY [facility] Last Admin: 03/02/18 09:48 Dose: 240 mg Docusate Sodium (Colace -) 100 mg PO BID [facility] Last Admin: 03/02/18 09:48 Dose: 100 mg Furosemide (Lasix Injection -) 20 mg IVPUSH DAILY [facility] Last Admin: 03/02/18 09:47 Dose: 20 mg Piperacillin Sod/Tazobactam (Sod 3.375 gm/ Dextrose) 50 mls @ 100 mls/hr IVPB Q8H-IV [facility]; Protocol Last Admin: 03/02/18 17:40 Dose: 100 mls/hr Doxycycline Hyclate 100 mg/ (Dextrose) 100 mls @ 100 mls/hr IVPB BID [facility] Last Admin: 03/02/18 10:18 Dose: 100 mls/hr Levetiracetam (Keppra -) 500 mg PO BID [facility] Last Admin: 03/02/18 09:48 Dose: 500 mg Metoprolol Tartrate (Lopressor -) 50 mg PO BID [facility] Last Admin: 03/02/18 09:48 Dose: 50 mg Potassium Chloride (K-Dur -) 20 meq PO DAILY [facility] Last Admin: 03/02/18 11:38 Dose: 20 meq Ranitidine HCl (Zantac -) 150 mg PO DAILY [facility] Last Admin: 03/02/18 09:47 Dose: 150 mg Spironolactone (Aldactone -) 25 mg PO DAILY [facility] Last Admin: 03/02/18 09:48 Dose: 25 mg Laboratory Results - last 24 hr 03/02/18 03/02/18 03/02/18 06:25 06:25 12:00 WBC 7.2 RBC 4.52 Hgb 10.8 Hct 34.3 MCV 76.0 L MCH 24.0 L MCHC 31.6 L RDW 18.2 H Plt Count 166 MPV 8.7 Sodium 140 Potassium 3.4 L Chloride 100 Carbon Dioxide 32 Anion Gap 8 BUN 17 Creatinine 0.6 Creat Clearance w eGFR > 60 Random Glucose 101 Calcium 8.2 L Stool Occult Blood Negative Vital Signs Temperature 99.2 F 03/02/18 14:00 Pulse Rate 98 H 03/02/18 14:00 Respiratory Rate 20 03/02/18 14:00 Blood Pressure 112/82 03/02/18 14:00 O2 Sat by Pulse Oximetry (%) 96 03/02/18 09:00 CC;;no complaints ``````````````````````````` skin--NL color; no redness around IV site eyes--anicteric lungs --diminished; unlabored heart--Irreg abd--soft ext--no edema neuro--awake; cogn impaired; good eye contact; able to verbalize & communicate; follows commands `````````````````````````````````````````````` Summ > CHF--as per chest CT and high BNP; likely syst & diastolic Failure,as a cause of her resp distress along with Rt lung infiltrates also seen by chest CT: PLAN: ::on Lasix & aldactone; may need ARB however BP is a bit too low now; will order echo, CXR > ATF--seems less tachy on higher dose CCB > low potassium--will replenish > PNA--right side; see CT report; cont current Abs > fever--none today > High C5p--oqeg 7.0; suggesting DM as well; Glucose is WNL but will check BGM, and change diet accordingly > anemia--stool for OB negative; cbc stable so far > constipation--Rx laxatives ```````````````````````````````````````` Dr Benavides Problem List - Problems (1) Pneumonia Code(s): J18.9 - PNEUMONIA, UNSPECIFIED ORGANISM Qualifiers: Laterality: right (2) Atrial fibrillation Code(s): I48.91 - UNSPECIFIED ATRIAL FIBRILLATION Qualifiers: Atrial fibrillation type: chronic Qualified Code(s): I48.2 - Chronic atrial fibrillation (3) History of breast cancer in female Code(s): Z85.3 - PERSONAL HISTORY OF MALIGNANT NEOPLASM OF BREAST (4) Hypertensive heart disease Code(s): I11.9 - HYPERTENSIVE HEART DISEASE WITHOUT HEART FAILURE Qualifiers: Heart failure presence: unspecified whether heart failure present Qualified Code(s): I11.9 - Hypertensive heart disease without heart failure (5) Subdural hematoma, post-traumatic Code(s): S06.5X9A - TRAUM SUBDR HEM W LOC OF UNSP DURATION, INIT Qualifiers: Encounter type: sequela Loss of consciousness presence/duration: without LOC Qualified Code(s): S06.5X0S - Traumatic subdural hemorrhage without loss of consciousness, sequela (6) Aortic valve replaced Code(s): Z95.2 - PRESENCE OF PROSTHETIC HEART VALVE (7) Frailty syndrome in geriatric patient Code(s): R54 - AGE-RELATED PHYSICAL DEBILITY (8) Hematuria Code(s): R31.9 - HEMATURIA, UNSPECIFIED Qualifiers: Hematuria type: asymptomatic microscopic Qualified Code(s): R31.21 - Asymptomatic microscopic hematuria
[2018-03-03] MEDS ORDERED: PIPERACILLIN/TAZOBACTAM 3.375 GM VIAL IVPB ONE ×3 (01:40→17:19)
[2018-03-03] MEDS ORDERED: DEXTROSE 5%-WATER - 50 ML IVPB ONE ×3 (01:40→17:19)
[2018-03-03] MEDS: PIPERACILLIN/TAZOB 3.375 GM 3.375 GM in DEXTROSE 5%-WATER - 50 ML IVPB SCH ×3 (02:15→17:34)
[2018-03-03 06:42] LABS: HEMATOCRIT 34.6 % (32.4-45.2); HEMOGLOBIN 10.9 GM/dL (10.7-15.3); MCHC 31.4 g/dl (32.0-36.0); MEAN CELL VOLUME 76.3 fl (80-96); MEAN PLT VOLUME 8.7 fl (7.5-11.1); PLATELET COUNT 183 K/MM3 (134-434); RBC 4.54 M/mm3 (3.60-5.2); RDW 18.5 % (11.6-15.6); WHITE BLOOD COUNT 8.7 K/mm3 (4.0-10.0)
[2018-03-03 07:15] LABS: ANION GAP 7 MMOL/L (8-16); BLOOD UREA NITROGEN 21 mg/dL (7-18); CALCIUM 8.2 mg/dL (8.5-10.1); CHLORIDE 100 mmol/L (98-107); CO2 33 mmol/L (21-32); CREATININE 0.7 mg/dL (0.55-1.3); GLUCOSE,RANDOM 94 mg/dL (74-106); MAGNESIUM 1.8 mg/dL (1.8-2.4); POTASSIUM 3.5 mmol/L (3.5-5.1); SODIUM 140 mmol/L (136-145)
[2018-03-03] MEDS: ALBUTEROL SO4 0.083% IH SOL 2.5 MG/3 ML VIAL.NEB. NEB SCH ×4 (07:45→20:32)
--- NOTE | 2018-03-03 08:58 | PN ---
Progress Note, Physician Chief Complaint: No new complaints AF with variable HR History of Present Illness: Patient was seen and examined. Awake. Chart was reviewed Denies chest pain. Intermittent cough - Current Medication List Current Medications: Active Medications Acetaminophen (Tylenol -) 650 mg PO Q6H PRN PRN Reason: FEVER Last Admin: 03/01/18 15:30 Dose: 650 mg Albuterol Sulfate (Ventolin 0.083% Nebulizer Soln -) 1 amp NEB RQID [facility] Last Admin: 03/03/18 07:45 Dose: 1 amp Diltiazem HCl (Cardizem Cd -) 240 mg PO DAILY [facility] Last Admin: 03/02/18 09:48 Dose: 240 mg Docusate Sodium (Colace -) 100 mg PO BID [facility] Last Admin: 03/02/18 21:53 Dose: 100 mg Furosemide (Lasix Injection -) 20 mg IVPUSH DAILY [facility] Last Admin: 03/02/18 09:47 Dose: 20 mg Piperacillin Sod/Tazobactam (Sod 3.375 gm/ Dextrose) 50 mls @ 100 mls/hr IVPB Q8H-IV [facility]; Protocol Last Admin: 03/03/18 02:15 Dose: 100 mls/hr Doxycycline Hyclate 100 mg/ (Dextrose) 100 mls @ 100 mls/hr IVPB BID [facility] Last Admin: 03/02/18 21:53 Dose: 100 mls/hr Levetiracetam (Keppra -) 500 mg PO BID [facility] Last Admin: 03/02/18 21:54 Dose: 500 mg Metoprolol Tartrate (Lopressor -) 50 mg PO BID [facility] Last Admin: 03/02/18 21:54 Dose: 50 mg Potassium Chloride (K-Dur -) 20 meq PO DAILY [facility] Last Admin: 03/02/18 11:38 Dose: 20 meq Ranitidine HCl (Zantac -) 150 mg PO DAILY [facility] Last Admin: 03/02/18 09:47 Dose: 150 mg Spironolactone (Aldactone -) 25 mg PO DAILY [facility] Last Admin: 03/02/18 09:48 Dose: 25 mg - Objective Vital Signs: Vital Signs Temperature 97.3 F L 03/03/18 05:25 Pulse Rate 84 03/03/18 05:25 Respiratory Rate 20 03/03/18 05:25 Blood Pressure 130/59 L 03/03/18 05:25 O2 Sat by Pulse Oximetry (%) 97 03/03/18 07:45 Eyes: Yes: PERRL HENT: Yes: Atraumatic Neck: Yes: Supple Cardiovascular: Yes: Pulse Irregular, S1, S2 Respiratory: Yes: Diminished Gastrointestinal: Yes: Normal Bowel Sounds, Soft. No: Tenderness Edema: No Additional Findings/Remarks: - Review of Systems Constitutional: denies: Chills, Fever Cardiovascular: denies: Chest Pain, Palpitations, Shortness of Breath Respiratory: reports: Cough. denies: Hemoptysis, Orthopnea, PND, SOB, SOB on Exertion Gastrointestinal: denies: Abdominal Pain, Constipation, Diarrhea, Melena, Rectal Bleeding, Vomiting Musculoskeletal: denies: Back Pain, Joint Pain Neurological: denies: Syncope. denies: Dizziness, Headache, Numbness, Seizure, Tremors Labs: CBC, BMP 03/03/18 05:30 03/03/18 05:30 Problem List - Problems (1) S/P AVR Code(s): Z95.2 - PRESENCE OF PROSTHETIC HEART VALVE (2) Hypertensive heart disease Code(s): I11.9 - HYPERTENSIVE HEART DISEASE WITHOUT HEART FAILURE Qualifiers: Heart failure presence: unspecified whether heart failure present Qualified Code(s): I11.9 - Hypertensive heart disease without heart failure (3) Pneumonia Code(s): J18.9 - PNEUMONIA, UNSPECIFIED ORGANISM Qualifiers: Laterality: right (4) Anemia Code(s): D64.9 - ANEMIA, UNSPECIFIED Qualifiers: Anemia type: unspecified type Qualified Code(s): D64.9 - Anemia, unspecified (5) Atrial fibrillation Code(s): I48.91 - UNSPECIFIED ATRIAL FIBRILLATION Qualifiers: Atrial fibrillation type: chronic Qualified Code(s): I48.2 - Chronic atrial fibrillation (6) History of breast cancer in female Code(s): Z85.3 - PERSONAL HISTORY OF MALIGNANT NEOPLASM OF BREAST (7) Subdural hematoma, post-traumatic Code(s): S06.5X9A - TRAUM SUBDR HEM W LOC OF UNSP DURATION, INIT Qualifiers: Encounter type: sequela Loss of consciousness presence/duration: without LOC Qualified Code(s): S06.5X0S - Traumatic subdural hemorrhage without loss of consciousness, sequela Assessment/Plan 1. Clinical presentation suggests pneumonia 2. History of subdural hematoma 3. 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 Persistent AF on anticoagulation [id number] score of 5 6. Mitral valve regurgitation 7. HTN 8. Hypercholesterolemia 9. Carotid stenosis 10. History of breast CA s/p mastectomy 11. Degenerative joint disease PLAN: 1. Empiric antibiotic coverage 2. Continue Metoprolol. Continue Diltiazem and uptitrate to rate control 3. Currently not on Coumadin due to history of traumatic SDH. ANTHONY occlusion device has been entertained in December when she was hospitalized. Head CT noted for decreased left SD collection. To decide whether anticoagulation can be resumed if cleared by Neurosurgery 4. Statin therapy Further plans are to follow Georgi Avendano MD
[2018-03-03] MEDS: SPIRONOLACTONE 25 MG TABLET (FP) PO SCH (10:04)
[2018-03-03] MEDS: DOCUSATE SODIUM 100 MG CAPSULE (FP) PO SCH ×2 (10:05→22:53)
[2018-03-03] MEDS: POTASSIUM CHLORIDE TABS 20 MEQ TABLET.ER (FP) PO SCH (10:05)
[2018-03-03] MEDS: METOPROLOL TARTRATE 50 MG TABLET (FP) PO SCH ×2 (10:06→22:53)
[2018-03-03] MEDS: levETIRAcetam 500 MG TABLET (FP) PO SCH ×2 (10:06→22:53)
[2018-03-03] MEDS: FUROSEMIDE 40 MG/4 ML INJECTABLE VIAL IVPUSH SCH (10:06)
[2018-03-03] MEDS: DOXYCYCLINE INJECTION 100 MG in DEXTROSE 5%-WATER - 100 ML IVPB SCH ×2 (10:06→22:53)
[2018-03-03] MEDS: RANITIDINE HCL 150 MG TABLET (FP) PO SCH (10:07)
--- NOTE | 2018-03-03 13:52 | PN ---
Progress Note (short form) - Note Progress Note: no complaints less cough Vital Signs Period Temp Pulse Resp BP Sys/Taylor Pulse Ox Last 24 Hr 97.1 F-99.2 F 84-99 17-20 106-130/54-82 96-97 cor-rrr lungs decreased bs at bases abd soft,nt ext trace edema CBC, BMP 03/03/18 05:30 03/03/18 05:30 Microbiology 02/26/18 16:53 Blood - Peripheral Venous Blood Culture - Preliminary NO GROWTH OBTAINED AFTER 96 HOURS, INCUBATION TO CONTINUE FOR 1 DAYS. 02/26/18 16:53 Blood - Peripheral Venous Blood Culture - Preliminary NO GROWTH OBTAINED AFTER 96 HOURS, INCUBATION TO CONTINUE FOR 1 DAYS. 03/01/18 18:15 Urine For Antigen Detection Legionella Antigen - Final 03/01/18 18:15 Urine For Antigen Detection Streptococcus pneumoniae Antigen (M - Final 02/26/18 17:34 Urine - Urine Clean Catch Urine Culture - Final NO GROWTH OBTAINED Current Medications Acetaminophen (Tylenol -) 650 mg PO Q6H PRN PRN Reason: FEVER Last Admin: 03/01/18 15:30 Dose: 650 mg Albuterol Sulfate (Ventolin 0.083% Nebulizer Soln -) 1 amp NEB RQID [facility] Last Admin: 03/03/18 11:45 Dose: 1 amp Diltiazem HCl (Cardizem Cd -) 240 mg PO DAILY [facility] Last Admin: 03/02/18 09:48 Dose: 240 mg Docusate Sodium (Colace -) 100 mg PO BID [facility] Last Admin: 03/02/18 21:53 Dose: 100 mg Furosemide (Lasix Injection -) 20 mg IVPUSH DAILY [facility] Last Admin: 03/02/18 09:47 Dose: 20 mg Piperacillin Sod/Tazobactam (Sod 3.375 gm/ Dextrose) 50 mls @ 100 mls/hr IVPB Q8H-IV [facility]; Protocol Last Admin: 03/03/18 02:15 Dose: 100 mls/hr Doxycycline Hyclate 100 mg/ (Dextrose) 100 mls @ 100 mls/hr IVPB BID [facility] Last Admin: 03/02/18 21:53 Dose: 100 mls/hr Levetiracetam (Keppra -) 500 mg PO BID [facility] Last Admin: 03/02/18 21:54 Dose: 500 mg Metoprolol Tartrate (Lopressor -) 50 mg PO BID [facility] Last Admin: 03/02/18 21:54 Dose: 50 mg Potassium Chloride (K-Dur -) 20 meq PO DAILY [facility] Last Admin: 03/02/18 11:38 Dose: 20 meq Ranitidine HCl (Zantac -) 150 mg PO DAILY [facility] Last Admin: 03/02/18 09:47 Dose: 150 mg Spironolactone (Aldactone -) 25 mg PO DAILY [facility] Last Admin: 03/02/18 09:48 Dose: 25 mg a/p pneumonia-HAP cannot r/o component of CHF as well day #4 zosyn/doxycycline can swith to po augmentin in am to finish 7 days subdural hematoma-off a/c avr-porcine afib-rate control Problem List - Problems (1) Pneumonia Code(s): J18.9 - PNEUMONIA, UNSPECIFIED ORGANISM Qualifiers: Laterality: right (2) Subdural hematoma, post-traumatic Code(s): S06.5X9A - TRAUM SUBDR HEM W LOC OF UNSP DURATION, INIT Qualifiers: Encounter type: sequela Loss of consciousness presence/duration: without LOC Qualified Code(s): S06.5X0S - Traumatic subdural hemorrhage without loss of consciousness, sequela (3) Aortic valve replaced Code(s): Z95.2 - PRESENCE OF PROSTHETIC HEART VALVE (4) Atrial fibrillation Code(s): I48.91 - UNSPECIFIED ATRIAL FIBRILLATION Qualifiers: Atrial fibrillation type: chronic Qualified Code(s): I48.2 - Chronic atrial fibrillation
--- NOTE | 2018-03-03 16:35 | PN ---
Progress Note (short form) - Note Progress Note: NEUROSURGERY Denies significant H/A, N/V, Sz, increasing weakness. Breathing and feeling better. No F/C. PE: AF, VSS HEENT- NC/AT; Neck- supple; Cor- Irreg; Abd- benign; Ext- no sign of DVT Speech- normal; A/A/OX2-3 CN- intact; Motor- 4+-5 B UE/LE; Sensation- intact LT; DTR- hyporeflexic Head CT : L frontoparietal chronic SDH with membrane and small acute component; thickest 13 mm; L cortical and ventricle mass effect, minimal shift; no change on initial vs f/u scan one day apart New head CT- decreased L SDH; max thickness about 8 mm; decreased mass effect/ shift Chronic L hemispheric SDH, improving On diuretic regimen for CHF, which occasionally could increase SDH size Balance risks of thromboembolic event against risks of recurrent/worsening SDH Given decreasing SDH/mass effect, potential benefits of AC regimen may outweigh potential risks, if there are definite indications of resuming AC, per cardiology Choice of an agent with available reversible agent is important Avoid over-dehydration and falls The above plan d/w patient
--- NOTE | 2018-03-03 16:43 | PN ---
Progress Note (short form) - Note Progress Note: Current Medications Acetaminophen (Tylenol -) 650 mg PO Q6H PRN PRN Reason: FEVER Last Admin: 03/01/18 15:30 Dose: 650 mg Albuterol Sulfate (Ventolin 0.083% Nebulizer Soln -) 1 amp NEB RQID [facility] Last Admin: 03/03/18 11:45 Dose: 1 amp Diltiazem HCl (Cardizem Cd -) 240 mg PO DAILY [facility] Last Admin: 03/03/18 10:05 Dose: 240 mg Docusate Sodium (Colace -) 100 mg PO BID [facility] Last Admin: 03/03/18 10:05 Dose: 100 mg Furosemide (Lasix Injection -) 20 mg IVPUSH DAILY [facility] Last Admin: 03/03/18 10:06 Dose: 20 mg Piperacillin Sod/Tazobactam (Sod 3.375 gm/ Dextrose) 50 mls @ 100 mls/hr IVPB Q8H-IV [facility]; Protocol Last Admin: 03/03/18 10:07 Dose: 100 mls/hr Doxycycline Hyclate 100 mg/ (Dextrose) 100 mls @ 100 mls/hr IVPB BID [facility] Last Admin: 03/03/18 10:06 Dose: 100 mls/hr Levetiracetam (Keppra -) 500 mg PO BID [facility] Last Admin: 03/03/18 10:06 Dose: 500 mg Metoprolol Tartrate (Lopressor -) 50 mg PO BID [facility] Last Admin: 03/03/18 10:06 Dose: 50 mg Potassium Chloride (K-Dur -) 20 meq PO DAILY [facility] Last Admin: 03/03/18 10:05 Dose: 20 meq Ranitidine HCl (Zantac -) 150 mg PO DAILY [facility] Last Admin: 03/03/18 10:07 Dose: 150 mg Spironolactone (Aldactone -) 25 mg PO DAILY [facility] Last Admin: 03/03/18 10:04 Dose: 25 mg Laboratory Results - last 24 hr 03/03/18 03/03/18 03/03/18 05:30 05:30 05:42 WBC 8.7 RBC 4.54 Hgb 10.9 Hct 34.6 MCV 76.3 L MCH 24.0 L MCHC 31.4 L RDW 18.5 H Plt Count 183 MPV 8.7 Sodium 140 Potassium 3.5 Chloride 100 Carbon Dioxide 33 H Anion Gap 7 L BUN 21 H Creatinine 0.7 Creat Clearance w eGFR > 60 POC Glucometer 115 Random Glucose 94 Calcium 8.2 L Magnesium 1.8 Vital Signs Period Temp Pulse Resp BP Sys/Taylor Pulse Ox Last 24 Hr 97.1 F-99 F 83-99 17-20 106-130/54-69 96-97 CC;;no complaints ``````````````````````````` skin--NL color; no redness around IV site eyes--anicteric lungs --diminished; unlabored heart--Irreg abd--soft ext--no edema; stasis changes neuro--awake; cogn impaired; good eye contact; able to verbalize & communicate; follows commands `````````````````````````````````````````````` Summ > CHF--as per chest CT and high BNP; likely syst & diastolic Failure,as a cause of her resp distress along with Rt lung infiltrates also seen by chest CT: PLAN: ::on Lasix & aldactone; may need ARB however BP is a bit too low now; will CXR > ATF--seems less tachy on higher dose CCB > low potassium--will replenish as needed > PNA--right side; see CT report; cont current Abs as per ID > fever--none today > High A1k--bhwj 7.0; suggesting DM as well; BGms marginally high; would not need a anti-DM med; but instead dietary control > anemia--stool for OB negative; cbc stable so far > constipation--laxatives helpful ```````````````````````````````````````` Dr Benavides Problem List - Problems (1) Pneumonia Code(s): J18.9 - PNEUMONIA, UNSPECIFIED ORGANISM Qualifiers: Laterality: right (2) Atrial fibrillation Code(s): I48.91 - UNSPECIFIED ATRIAL FIBRILLATION Qualifiers: Atrial fibrillation type: chronic Qualified Code(s): I48.2 - Chronic atrial fibrillation (3) History of breast cancer in female Code(s): Z85.3 - PERSONAL HISTORY OF MALIGNANT NEOPLASM OF BREAST (4) Hypertensive heart disease Code(s): I11.9 - HYPERTENSIVE HEART DISEASE WITHOUT HEART FAILURE Qualifiers: Heart failure presence: unspecified whether heart failure present Qualified Code(s): I11.9 - Hypertensive heart disease without heart failure (5) Subdural hematoma, post-traumatic Code(s): S06.5X9A - TRAUM SUBDR HEM W LOC OF UNSP DURATION, INIT Qualifiers: Encounter type: sequela Loss of consciousness presence/duration: without LOC Qualified Code(s): S06.5X0S - Traumatic subdural hemorrhage without loss of consciousness, sequela (6) Aortic valve replaced Code(s): Z95.2 - PRESENCE OF PROSTHETIC HEART VALVE (7) Frailty syndrome in geriatric patient Code(s): R54 - AGE-RELATED PHYSICAL DEBILITY (8) Hematuria Code(s): R31.9 - HEMATURIA, UNSPECIFIED Qualifiers: Hematuria type: asymptomatic microscopic Qualified Code(s): R31.21 - Asymptomatic microscopic hematuria
[2018-03-04] MEDS ORDERED: DEXTROSE 5%-WATER - 50 ML IVPB ONE ×3 (01:16→16:29)
[2018-03-04] MEDS ORDERED: PIPERACILLIN/TAZOBACTAM 3.375 GM VIAL IVPB ONE ×3 (01:16→16:29)
[2018-03-04] MEDS: PIPERACILLIN/TAZOB 3.375 GM 3.375 GM in DEXTROSE 5%-WATER - 50 ML IVPB SCH ×2 (02:03→10:07)
[2018-03-04 06:56] LABS: HEMATOCRIT 34.3 % (32.4-45.2); HEMOGLOBIN 10.8 GM/dL (10.7-15.3); MCHC 31.4 g/dl (32.0-36.0); MEAN CELL VOLUME 76.5 fl (80-96); MEAN PLT VOLUME 8.5 fl (7.5-11.1); PLATELET COUNT 199 K/MM3 (134-434); RBC 4.49 M/mm3 (3.60-5.2); WHITE BLOOD COUNT 9.5 K/mm3 (4.0-10.0)
[2018-03-04 07:21] LABS: ANION GAP 8 MMOL/L (8-16); BLOOD UREA NITROGEN 19 mg/dL (7-18); CALCIUM 8.5 mg/dL (8.5-10.1); CHLORIDE 99 mmol/L (98-107); CO2 31 mmol/L (21-32); CREATININE 0.6 mg/dL (0.55-1.3); GLUCOSE,RANDOM 102 mg/dL (74-106); POTASSIUM 3.6 mmol/L (3.5-5.1); SODIUM 138 mmol/L (136-145)
[2018-03-04] MEDS: ALBUTEROL SO4 0.083% IH SOL 2.5 MG/3 ML VIAL.NEB. NEB SCH ×4 (07:57→20:54)
[2018-03-04] MEDS ORDERED: PT OWN MED DRAWER 7, Y5N ONE ×2 (08:49→13:56)
--- NOTE | 2018-03-04 09:36 | PN ---
Progress Note, Physician History of Present Illness: Dyspnea improving. - Current Medication List Current Medications: Active Medications Acetaminophen (Tylenol -) 650 mg PO Q6H PRN PRN Reason: FEVER Last Admin: 03/01/18 15:30 Dose: 650 mg Albuterol Sulfate (Ventolin 0.083% Nebulizer Soln -) 1 amp NEB RQID [facility] Last Admin: 03/04/18 07:57 Dose: 1 amp Diltiazem HCl (Cardizem Cd -) 240 mg PO DAILY [facility] Last Admin: 03/03/18 10:05 Dose: 240 mg Docusate Sodium (Colace -) 100 mg PO BID [facility] Last Admin: 03/03/18 22:53 Dose: 100 mg Furosemide (Lasix Injection -) 20 mg IVPUSH DAILY [facility] Last Admin: 03/03/18 10:06 Dose: 20 mg Piperacillin Sod/Tazobactam (Sod 3.375 gm/ Dextrose) 50 mls @ 100 mls/hr IVPB Q8H-IV [facility]; Protocol Last Admin: 03/04/18 02:03 Dose: 100 mls/hr Doxycycline Hyclate 100 mg/ (Dextrose) 100 mls @ 100 mls/hr IVPB BID [facility] Last Admin: 03/03/18 22:53 Dose: 100 mls/hr Levetiracetam (Keppra -) 500 mg PO BID [facility] Last Admin: 03/03/18 22:53 Dose: 500 mg Metoprolol Tartrate (Lopressor -) 50 mg PO BID [facility] Last Admin: 03/03/18 22:53 Dose: 50 mg Potassium Chloride (K-Dur -) 20 meq PO DAILY [facility] Last Admin: 03/03/18 10:05 Dose: 20 meq Ranitidine HCl (Zantac -) 150 mg PO DAILY [facility] Last Admin: 03/03/18 10:07 Dose: 150 mg Spironolactone (Aldactone -) 25 mg PO DAILY [facility] Last Admin: 03/03/18 10:04 Dose: 25 mg - Objective Vital Signs: Vital Signs Temperature 98.0 F 03/04/18 02:00 Pulse Rate 105 H 03/04/18 05:46 Respiratory Rate 20 03/04/18 05:46 Blood Pressure 129/68 03/04/18 05:46 O2 Sat by Pulse Oximetry (%) 94 L 01/02/19 21:00 Constitutional: Yes: No Distress, Calm Neck: Yes: Supple Cardiovascular: Yes: Pulse Irregular Respiratory: Yes: Regular, Diminished Gastrointestinal: Yes: Normal Bowel Sounds, Soft Edema: No Labs: CBC, BMP 03/04/18 05:30 03/04/18 06:00 INR, PTT INR 1.24 (0.83-1.09) H 02/26/18 16:53 - ....Imaging Chest X-ray: Report Reviewed (Mild congestion) EKG: Report Reviewed (Tele: Rate-controlled afib) Problem List - Problems (1) Pneumonia Code(s): J18.9 - PNEUMONIA, UNSPECIFIED ORGANISM Qualifiers: Laterality: right (2) S/P AVR Code(s): Z95.2 - PRESENCE OF PROSTHETIC HEART VALVE (3) Atrial fibrillation Code(s): I48.91 - UNSPECIFIED ATRIAL FIBRILLATION Qualifiers: Atrial fibrillation type: chronic Qualified Code(s): I48.2 - Chronic atrial fibrillation (4) Subdural hematoma, post-traumatic Code(s): S06.5X9A - TRAUM SUBDR HEM W LOC OF UNSP DURATION, INIT Qualifiers: Encounter type: sequela Loss of consciousness presence/duration: without LOC Qualified Code(s): S06.5X0S - Traumatic subdural hemorrhage without loss of consciousness, sequela (5) Diastolic dysfunction Code(s): I51.9 - HEART DISEASE, UNSPECIFIED Assessment/Plan 1. Hospital acquired pneumonia 2. 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 Persistent AF off anticoagulation [id number] score of 5 6. Mitral valve regurgitation 7. HTN 8. Hypercholesterolemia 9. Carotid stenosis 10. History of breast CA s/p mastectomy 11. Degenerative joint disease PLAN: 1. Switch to Augmentin coverage per ID, Lasix 20 qd and Aldactone 25 qd with monitor diuretic response, renal fxn and electrolytes 2. Continue Metoprolol 50 bid and Diltiazem CD 240 qd and uptitrate to rate control 3. Currently not on Coumadin due to history of traumatic SDH. ANTHONY occlusion device has been entertained in December when she was hospitalized. Head CT noted for decreased left SDH collection. To decide whether and which anticoagulation should be resumed, Neurosurgery appreciated 4. Resume Lipitor 20 qd
[2018-03-04] MEDS: METOPROLOL TARTRATE 50 MG TABLET (FP) PO SCH ×2 (10:06→21:55)
[2018-03-04] MEDS: SPIRONOLACTONE 25 MG TABLET (FP) PO SCH (10:06)
[2018-03-04] MEDS: RANITIDINE HCL 150 MG TABLET (FP) PO SCH (10:06)
[2018-03-04] MEDS: levETIRAcetam 500 MG TABLET (FP) PO SCH ×2 (10:06→21:55)
[2018-03-04] MEDS: POTASSIUM CHLORIDE TABS 20 MEQ TABLET.ER (FP) PO SCH (10:06)
[2018-03-04] MEDS: DOCUSATE SODIUM 100 MG CAPSULE (FP) PO SCH ×2 (10:06→21:55)
[2018-03-04] MEDS: FUROSEMIDE 40 MG/4 ML INJECTABLE VIAL IVPUSH SCH (10:06)
[2018-03-04] MEDS: DOXYCYCLINE INJECTION 100 MG in DEXTROSE 5%-WATER - 100 ML IVPB SCH (10:07)
--- NOTE | 2018-03-04 16:22 | PN ---
Progress Note (short form) - Note Progress Note: Current Medications Acetaminophen (Tylenol -) 650 mg PO Q6H PRN PRN Reason: FEVER Last Admin: 03/01/18 15:30 Dose: 650 mg Albuterol Sulfate (Ventolin 0.083% Nebulizer Soln -) 1 amp NEB RQID [facility] Last Admin: 03/04/18 11:32 Dose: 1 amp Atorvastatin Calcium (Lipitor -) 20 mg PO HS [facility] Diltiazem HCl (Cardizem Cd -) 240 mg PO DAILY [facility] Last Admin: 03/04/18 10:06 Dose: 240 mg Docusate Sodium (Colace -) 100 mg PO BID [facility] Last Admin: 03/04/18 10:06 Dose: 100 mg Furosemide (Lasix -) 20 mg PO DAILY [facility] Piperacillin Sod/Tazobactam (Sod 3.375 gm/ Dextrose) 50 mls @ 100 mls/hr IVPB Q8H-IV [facility]; Protocol Last Admin: 03/04/18 10:07 Dose: 100 mls/hr Doxycycline Hyclate 100 mg/ (Dextrose) 100 mls @ 100 mls/hr IVPB BID [facility] Last Admin: 03/04/18 10:07 Dose: 100 mls/hr Levetiracetam (Keppra -) 500 mg PO BID [facility] Last Admin: 03/04/18 10:06 Dose: 500 mg Metoprolol Tartrate (Lopressor -) 50 mg PO BID [facility] Last Admin: 03/04/18 10:06 Dose: 50 mg Potassium Chloride (K-Dur -) 20 meq PO DAILY [facility] Last Admin: 03/04/18 10:06 Dose: 20 meq Ranitidine HCl (Zantac -) 150 mg PO DAILY [facility] Last Admin: 03/04/18 10:06 Dose: 150 mg Spironolactone (Aldactone -) 25 mg PO DAILY [facility] Last Admin: 03/04/18 10:06 Dose: 25 mg Laboratory Results - last 24 hr 03/04/18 03/04/18 03/04/18 05:30 06:00 06:46 WBC 9.5 RBC 4.49 Hgb 10.8 Hct 34.3 MCV 76.5 L MCH 24.0 L MCHC 31.4 L RDW 18.0 H Plt Count 199 MPV 8.5 Sodium 138 Potassium 3.6 Chloride 99 Carbon Dioxide 31 Anion Gap 8 BUN 19 H Creatinine 0.6 Creat Clearance w eGFR > 60 POC Glucometer 114 Random Glucose 102 Calcium 8.5 Vital Signs Temperature 98.2 F 03/04/18 14:00 Pulse Rate 88 03/04/18 14:00 Respiratory Rate 20 03/04/18 14:00 Blood Pressure 107/46 L 03/04/18 14:00 O2 Sat by Pulse Oximetry (%) 96 03/04/18 09:00 CC;;no complaints ``````````````````````````` skin--NL color eyes--anicteric lungs --diminished BS; unlabored heart--Irreg abd--soft ext--no edema; stasis changes neuro--asthenic awake; cogn impaired; good eye contact; able to verbalize & communicate; follows commands `````````````````````````````````````````````` Summ > CHF--likely syst & diast failure; clinically improved but CXR still shows some central congestion. Now on BB, CCB, Diuretics. May not be able to tolerate VICTORINO/ARB due to periods of low BP (2nd higher requirements for the CCB) > ATF--less tachy on higher dose CCB; unsure if she can safely be placed back on a/c (2nd fall risk) > low potassium--replenish as needed > PNA--right side; as per CT report, but not described on CXR; cont current Abs as per ID > High P2y--iphr 7.0; suggesting DM as well; BGms marginally high; would not need a anti-DM med; but instead dietary control > anemia--stool for OB negative; cbc stable > constipation--laxatives helpful > mobility impaired--deconditioned; son stated that she has 24 Hr care at home; will also need VNS/PT ```````````````````````````````````````` Dr Benavides Problem List - Problems (1) Pneumonia Code(s): J18.9 - PNEUMONIA, UNSPECIFIED ORGANISM Qualifiers: Laterality: right (2) Atrial fibrillation Code(s): I48.91 - UNSPECIFIED ATRIAL FIBRILLATION Qualifiers: Atrial fibrillation type: chronic Qualified Code(s): I48.2 - Chronic atrial fibrillation (3) History of breast cancer in female Code(s): Z85.3 - PERSONAL HISTORY OF MALIGNANT NEOPLASM OF BREAST (4) Hypertensive heart disease Code(s): I11.9 - HYPERTENSIVE HEART DISEASE WITHOUT HEART FAILURE Qualifiers: Heart failure presence: unspecified whether heart failure present Qualified Code(s): I11.9 - Hypertensive heart disease without heart failure (5) Subdural hematoma, post-traumatic Code(s): S06.5X9A - TRAUM SUBDR HEM W LOC OF UNSP DURATION, INIT Qualifiers: Encounter type: sequela Loss of consciousness presence/duration: without LOC Qualified Code(s): S06.5X0S - Traumatic subdural hemorrhage without loss of consciousness, sequela (6) Aortic valve replaced Code(s): Z95.2 - PRESENCE OF PROSTHETIC HEART VALVE (7) Frailty syndrome in geriatric patient Code(s): R54 - AGE-RELATED PHYSICAL DEBILITY (8) Hematuria Code(s): R31.9 - HEMATURIA, UNSPECIFIED Qualifiers: Hematuria type: asymptomatic microscopic Qualified Code(s): R31.21 - Asymptomatic microscopic hematuria
--- NOTE | 2018-03-04 16:44 | PN ---
Progress Note (short form) - Note Progress Note: no complaints less cough feels better Vital Signs Period Temp Pulse Resp BP Sys/Taylor Pulse Ox Last 24 Hr 98.0 F-99 F 82-105 19-20 107-141/46-74 94-96 cor-rrr lungs decreased bs at bases abd soft,nt ext no edema CBC, BMP 03/04/18 05:30 03/04/18 06:00 Microbiology 02/26/18 16:53 Blood - Peripheral Venous Blood Culture - Final NO GROWTH AFTER 5 DAYS INCUBATION 02/26/18 16:53 Blood - Peripheral Venous Blood Culture - Final NO GROWTH AFTER 5 DAYS INCUBATION 03/01/18 18:15 Urine For Antigen Detection Legionella Antigen - Final 03/01/18 18:15 Urine For Antigen Detection Streptococcus pneumoniae Antigen (M - Final 02/26/18 17:34 Urine - Urine Clean Catch Urine Culture - Final NO GROWTH OBTAINED a/p pneumonia-HAP cannot r/o component of CHF as well day #5zosyn/doxycycline swith to po augmentin for total 7 days (2 more days) subdural hematoma-off a/c avr-porcine afib-rate control will sign off please call back Problem List - Problems (1) Pneumonia Code(s): J18.9 - PNEUMONIA, UNSPECIFIED ORGANISM Qualifiers: Laterality: right (2) Subdural hematoma, post-traumatic Code(s): S06.5X9A - TRAUM SUBDR HEM W LOC OF UNSP DURATION, INIT Qualifiers: Encounter type: sequela Loss of consciousness presence/duration: without LOC Qualified Code(s): S06.5X0S - Traumatic subdural hemorrhage without loss of consciousness, sequela (3) Aortic valve replaced Code(s): Z95.2 - PRESENCE OF PROSTHETIC HEART VALVE (4) Atrial fibrillation Code(s): I48.91 - UNSPECIFIED ATRIAL FIBRILLATION Qualifiers: Atrial fibrillation type: chronic Qualified Code(s): I48.2 - Chronic atrial fibrillation
[2018-03-04] MEDS: AMOX TR/POT CLAV 875MG/125MG TABLETS (FP) PO SCH (18:34)
--- NOTE | 2018-03-04 19:51 | PN ---
Progress Note (short form) - Note Progress Note: NEUROSURGERY Son Siddharth at bedside Denies significant H/A, N/V, Sz, increasing weakness. Breathing and feeling better. No F/C. Slight occ coughs On Augmentin PE: AF, VSS HEENT- NC/AT; Neck- supple; Cor- Irreg; Abd- benign; Ext- no sign of DVT Speech- normal; A/A/OX2-3 CN- intact; Motor- 4+-5 B UE/LE, no drift; Sensation- intact LT; DTR- hyporeflexic Head CT- decreased L SDH; max thickness about 8 mm; decreased mass effect/shift Chronic L hemispheric SDH, improving On diuretic regimen for CHF, which occasionally could increase SDH size Balance risks of thromboembolic events against risks of recurrent/worsening SDH Given decreasing SDH/mass effect, potential benefits of AC regimen may outweigh potential risks, if there are definite indications of resuming AC, per cardiology Choice of an agent with available reversible agent is important Avoid over-dehydration and falls All questions
[2018-03-04] MEDS: ATORVASTATIN CA 20 MG TABLET (FP) PO SCH (21:56)
[2018-03-05] MEDS: ALBUTEROL SO4 0.083% IH SOL 2.5 MG/3 ML VIAL.NEB. NEB SCH ×4 (07:57→20:41)
[2018-03-05 08:49] LABS: BLOOD UREA NITROGEN 22 mg/dL (7-18); CHLORIDE 100 mmol/L (98-107); CO2 33 mmol/L (21-32); CREATININE 0.7 mg/dL (0.55-1.3); GLUCOSE,RANDOM 108 mg/dL (74-106); POTASSIUM 3.9 mmol/L (3.5-5.1); SODIUM 139 mmol/L (136-145)
[2018-03-05 08:50] LABS: ANION GAP 7 MMOL/L (8-16); CALCIUM 8.8 mg/dL (8.5-10.1)
[2018-03-05] MEDS: AMOX TR/POT CLAV 875MG/125MG TABLETS (FP) PO SCH ×2 (09:58→16:57)
[2018-03-05] MEDS: SPIRONOLACTONE 25 MG TABLET (FP) PO SCH (09:58)
[2018-03-05] MEDS: levETIRAcetam 500 MG TABLET (FP) PO SCH ×2 (09:59→21:36)
[2018-03-05] MEDS: RANITIDINE HCL 150 MG TABLET (FP) PO SCH (09:59)
[2018-03-05] MEDS: FUROSEMIDE 40 MG TABLET (FP) PO SCH (09:59)
[2018-03-05] MEDS: DOCUSATE SODIUM 100 MG CAPSULE (FP) PO SCH ×2 (09:59→21:36)
[2018-03-05] MEDS: METOPROLOL TARTRATE 50 MG TABLET (FP) PO SCH ×2 (09:59→21:36)
[2018-03-05] MEDS: POTASSIUM CHLORIDE TABS 20 MEQ TABLET.ER (FP) PO SCH (09:59)
[2018-03-05] MEDS ORDERED: FUROSEMIDE 20 MG TABLET (FP) PO SCH (10:00)
--- NOTE | 2018-03-05 13:02 | PN ---
Progress Note, Physician History of Present Illness: Dyspnea resolved, feels well. - Current Medication List Current Medications: Active Medications Acetaminophen (Tylenol -) 650 mg PO Q6H PRN PRN Reason: FEVER Last Admin: 03/01/18 15:30 Dose: 650 mg Albuterol Sulfate (Ventolin 0.083% Nebulizer Soln -) 1 amp NEB RQID [facility] Last Admin: 03/05/18 11:22 Dose: 1 amp Amoxicillin/Clavulanate Potassium (Augmentin - 875mg Tablet) 1 tab PO BID@0800, 1730 [facility] Last Admin: 03/05/18 09:58 Dose: 1 tab Atorvastatin Calcium (Lipitor -) 20 mg PO HS [facility] Last Admin: 03/04/18 21:56 Dose: 20 mg Diltiazem HCl (Cardizem Cd -) 240 mg PO DAILY [facility] Last Admin: 03/05/18 09:59 Dose: 240 mg Docusate Sodium (Colace -) 100 mg PO BID [facility] Last Admin: 03/05/18 09:59 Dose: 100 mg Furosemide (Lasix -) 40 mg PO DAILY [facility] Last Admin: 03/05/18 09:59 Dose: 40 mg Levetiracetam (Keppra -) 500 mg PO BID [facility] Last Admin: 03/05/18 09:59 Dose: 500 mg Metoprolol Tartrate (Lopressor -) 50 mg PO BID [facility] Last Admin: 03/05/18 09:59 Dose: 50 mg Potassium Chloride (K-Dur -) 20 meq PO DAILY [facility] Last Admin: 03/05/18 09:59 Dose: 20 meq Ranitidine HCl (Zantac -) 150 mg PO DAILY [facility] Last Admin: 03/05/18 09:59 Dose: 150 mg Spironolactone (Aldactone -) 25 mg PO DAILY [facility] Last Admin: 03/05/18 09:58 Dose: 25 mg - Objective Vital Signs: Vital Signs Temperature 98.3 F 03/05/18 10:00 Pulse Rate 104 H 03/05/18 10:00 Respiratory Rate 20 03/05/18 10:00 Blood Pressure 130/87 03/05/18 10:00 O2 Sat by Pulse Oximetry (%) 100 03/05/18 10:00 Constitutional: Yes: No Distress, Calm Neck: Yes: Supple Cardiovascular: Yes: Pulse Irregular Respiratory: Yes: Regular, CTA Bilaterally Gastrointestinal: Yes: Normal Bowel Sounds, Soft Edema: No Labs: CBC, BMP 03/04/18 05:30 03/05/18 05:40 INR, PTT INR 1.24 (0.83-1.09) H 02/26/18 16:53 - ....Imaging EKG: Report Reviewed (Tele: Rate-controlled afib) Problem List - Problems (1) Pneumonia Code(s): J18.9 - PNEUMONIA, UNSPECIFIED ORGANISM Qualifiers: Laterality: right (2) S/P AVR Code(s): Z95.2 - PRESENCE OF PROSTHETIC HEART VALVE (3) Atrial fibrillation Code(s): I48.91 - UNSPECIFIED ATRIAL FIBRILLATION Qualifiers: Atrial fibrillation type: chronic Qualified Code(s): I48.2 - Chronic atrial fibrillation (4) Subdural hematoma, post-traumatic Code(s): S06.5X9A - TRAUM SUBDR HEM W LOC OF UNSP DURATION, INIT Qualifiers: Encounter type: sequela Loss of consciousness presence/duration: without LOC Qualified Code(s): S06.5X0S - Traumatic subdural hemorrhage without loss of consciousness, sequela (5) Diastolic dysfunction Code(s): I51.9 - HEART DISEASE, UNSPECIFIED Assessment/Plan 1. Hospital acquired pneumonia 2. 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 Persistent AF off anticoagulation [id number] score of 5 6. Mitral valve regurgitation 7. HTN 8. Hypercholesterolemia 9. Carotid stenosis 10. History of breast CA s/p mastectomy 11. Degenerative joint disease PLAN: 1. Switched to Augmentin coverage per ID, Lasix 40 qd and Aldactone 25 qd with monitor diuretic response, renal fxn and electrolytes 2. Continue Metoprolol 50 bid, Lipitor 20 qd and Diltiazem CD 240 qd and uptitrate to rate control 3. Currently not on anticoagulation due to history of traumatic SDH. ANTHONY occlusion device has been entertained in December when she was hospitalized. Head CT noted for decreased left SDH collection. Neurosurgery input appreciated , will start Eliquis 2.5 bid (age>80, wt<60 kg, Cr<1.5)
--- NOTE | 2018-03-05 17:22 | DS ---
Physical Examination Vital Signs: Vital Signs Temperature 98.4 F 03/05/18 13:42 Pulse Rate 90 03/05/18 13:42 Respiratory Rate 19 03/05/18 13:42 Blood Pressure 116/62 03/05/18 13:42 O2 Sat by Pulse Oximetry (%) 100 03/05/18 10:00 Constitutional: Yes: No Distress, Calm Eyes: Yes: Conjunctiva Clear Neck: Yes: Supple Cardiovascular: Yes: Pulse Irregular Respiratory: Yes: CTA Bilaterally Gastrointestinal: Yes: Normal Bowel Sounds, Soft Musculoskeletal: Yes: Muscle Weakness Edema: No Integumentary: Yes: Other (stasis derm LE) Neurological: Yes: Alert (to baseline) Psychiatric: Yes: Alert Labs: CBC, BMP 03/04/18 05:30 03/05/18 05:40 Discharge Summary Reason For Visit: PNEUMONIA Current Active Problems Diastolic dysfunction (Acute) CHF rapid ATF Frailty syndrome in geriatric patient (Acute) Hypertensive heart disease (Acute) Pneumonia (Acute) S/P AVR (Acute) s/p Subdural Henatoma lipidemia anemia constipation mobility impaired Hx breast cancer T2 DM Hospital Course: 87F with history of afib, aortic valve replacement, HTN, HLD, with cough malaise which was not responding to PO agents. She was found to be in CHF along with RmL PNA; she was seen by ID, given IV Abs, and was diuresed as well. The over the road driver adjusted her Cardiac meds, adding a CCB to the BB to better slow her HR, to which she responded well. The chemistries remained stable but her A1c was found to be 7.1 without a prior known Hx of DM; her Hgb dropped a bit but it stabilized at about 10. She improved clinically. She was seen by NS who repeated a head CT showing considerable resolution of her known SDH, and cleared her to resume a/c; she was seen by PT who was able to stand her up but ambulated very little. Her son stated that he wished to take her home because he has now arranged 24/7 care; but requested VNS . Condition: Stable - Instructions Diet, Activity, Other Instructions: Low salt; low sugar/starch diet Needs daily supervision (day and night) and assist with meds safety precautions at all times Stop>>>>>>>>>>>>>>>>>>>>>>>>>>>> Amlodipine and Lisinopril Continue these old medications ---------> Atorvastatin and Levetiracetam See Medication list for new pills WILL NEED HOME GLUCOSE MONITORING, recommend once a day testing See PCP Dr Terrance See in 5-7 days post discharge Referrals: Terrance See MD [Primary Care Provider] - Disposition: VNS/HOME HEALTH CARE - Home Medications Comprehensive Discharge Medication List: Ambulatory Orders Atorvastatin Ca [Lipitor] 20 mg PO HS 01/26/18 Metoprolol Tartrate [Lopressor -] 50 mg PO BID tablet 01/28/18 levETIRAcetam [Keppra -] 500 mg PO BID tablet 01/28/18 Amox-Tr/K Cl [Augmentin 875-125mg Tablet -] 1 tab PO BID@0800,1730 3 Days #6 tablet 03/05/18 Apixaban [Eliquis -] 2.5 mg PO BID #60 tablet 03/05/18 Diltiazem Cd [Cardizem Cd -] 240 mg PO DAILY #30 cap.cd.24h 03/05/18 Docusate Sodium [Colace -] 100 mg PO BID #60 capsule 03/05/18 Furosemide [Lasix -] 40 mg PO DAILY #30 tablet 03/05/18 Ranitidine [Zantac -] 150 mg PO DAILY #30 tablet 03/05/18 Spironolactone [Aldactone -] 25 mg PO DAILY #30 tablet 03/05/18
[2018-03-05] MEDS: ATORVASTATIN CA 20 MG TABLET (FP) PO SCH (21:36)
[2018-03-05] MEDS: APIXABAN 2.5 MG TABLET PO SCH (21:36)
[2018-03-06] MEDS: ALBUTEROL SO4 0.083% IH SOL 2.5 MG/3 ML VIAL.NEB. NEB SCH ×2 (07:47→11:47)
[2018-03-06] MEDS: AMOX TR/POT CLAV 875MG/125MG TABLETS (FP) PO SCH (08:52)
[2018-03-06 08:59] VITALS: BP 135/64; PULSE 107; TEMP 97.6
[2018-03-06] MEDS: SPIRONOLACTONE 25 MG TABLET (FP) PO SCH (08:59)
[2018-03-06] MEDS: FUROSEMIDE 40 MG TABLET (FP) PO SCH (08:59)
[2018-03-06] MEDS: APIXABAN 2.5 MG TABLET PO SCH (08:59)
[2018-03-06] MEDS: levETIRAcetam 500 MG TABLET (FP) PO SCH (08:59)
[2018-03-06] MEDS: POTASSIUM CHLORIDE TABS 20 MEQ TABLET.ER (FP) PO SCH (08:59)
[2018-03-06] MEDS: METOPROLOL TARTRATE 50 MG TABLET (FP) PO SCH (08:59)
[2018-03-06] MEDS: DOCUSATE SODIUM 100 MG CAPSULE (FP) PO SCH (08:59)
[2018-03-06] MEDS: RANITIDINE HCL 150 MG TABLET (FP) PO SCH (08:59)
--- NOTE | 2018-03-06 12:28 | PN ---
Progress Note (short form) - Note Progress Note: Chief Complaint: Events noted, notes reviewed, seen prior to D/C home, denies any dyspnea, denies any chest pain History of Present Illness: Patient seen and examined on telemetry. Events noted, notes reviewed, seen prior to D/C home, denies any dyspnea, denies any chest pain - Current Medication List Current Medications: Active Medications Acetaminophen (Tylenol -) 650 mg PO Q6H PRN PRN Reason: FEVER Albuterol Sulfate (Ventolin 0.083% Nebulizer Soln -) 1 amp NEB RQID [facility] Amoxicillin/Clavulanate Potassium (Augmentin - 875mg Tablet) 1 tab PO BID@0800, 1730 [facility] Atorvastatin Calcium (Lipitor -) 20 mg PO HS [facility] Diltiazem HCl (Cardizem Cd -) 240 mg PO DAILY [facility] Docusate Sodium (Colace -) 100 mg PO BID [facility] Furosemide (Lasix -) 40 mg PO DAILY [facility] Levetiracetam (Keppra -) 500 mg PO BID [facility] Metoprolol Tartrate (Lopressor -) 50 mg PO BID [facility] Potassium Chloride (K-Dur -) 20 meq PO DAILY [facility] Ranitidine HCl (Zantac -) 150 mg PO DAILY [facility] Spironolactone (Aldactone -) 25 mg PO DAILY [facility] - Review of Systems Constitutional: denies: Chills, Fever Cardiovascular: As noted above Respiratory: denies: Cough or Sputum Production Gastrointestinal: denies: Nausea, Vomiting, Diarrhea, Constipation or Abdominal Pain Genitourinary: denies: Dysuria, Hematuria Neurological: denies: Dizziness - Objective Vital Signs: Last Vital Signs Temp Pulse Resp BP Pulse Ox 97.6 F 107 H 16 135/64 93 L 03/06/18 08:57 03/06/18 08:57 03/06/18 08:57 03/06/18 08:57 03/06/18 08:53 Intake & Output 03/03/18 03/04/18 03/05/18 03/06/18 23:59 23:59 23:59 23:59 Intake Total 1030 0 0 Balance 1030 0 0 Neck: Supple Negative JVD Cardiovascular: S1 S2 Irregularly Irregular Garde 2/6 MARCELL Respiratory: Diminished Breath Sounds Bilaterally Gastrointestinal: Soft Benign Normal Bowel Sounds Ext: No Edema Labs: CBC, BMP 03/04/18 05:30 03/05/18 05:40 Assessment/Plan ASSESSMENT: 1. Hospital acquired pneumonia, resolved 2. History of chronic traumatic left subdural hematoma resumed A/C, with DOAC's/ Eliquis 3. Aortic valve disease post AVR (21 mm CE/Bovine pericardial valve) 4. 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 Persistent atrial fibrillation [id number] score of 5 resumed A/C, with DOAC 's/Eliquis 6. Mitral valve regurgitation 7. HTN 8. Hypercholesterolemia 9. Carotid stenosis 10. History of breast CA post mastectomy 11. History degenerative joint disease PLAN: 1. Continue Lasix and Aldactone with close monitoring of renal function and electrolytes 2. Continue Lopressor 3. Continue Cardizem CD 4. Continue Eliquis with caution 5. Continue Lipitor 6. Follow-up in the office post D/C home Margot Arellano M.D.
== END 2018-03-06 11:57 | disposition home health service (06) | DRG 193 ==
LOC: JER 16:14 → JERBED 18:11 → J4W 02-27 00:25
PROVIDERS: ADMIT Internal Medicine Hematology & Oncology; ATTEND Internal Medicine Hematology & Oncology
DX: J18.9 Pneumonia, unspecified organism (principal); S06.5X9A Traumatic subdural hemorrhage with loss of consciousness of unspecified duration, initial encounter; I50.23 Acute on chronic systolic (congestive) heart failure; R54 Age-related physical debility; R31.9 Hematuria, unspecified; Z95.2 Presence of prosthetic heart valve; I11.0 Hypertensive heart disease with heart failure; Z85.3 Personal history of malignant neoplasm of breast; I48.2 Chronic atrial fibrillation; I34.0 Nonrheumatic mitral (valve) insufficiency; W19.XXXA Unspecified fall, initial encounter; Y93.9 Activity, unspecified; Y92.89 Other specified places as the place of occurrence of the external cause; Y99.9 Unspecified external cause status; D64.9 Anemia, unspecified; K59.00 Constipation, unspecified; E78.5 Hyperlipidemia, unspecified
CPT/HCPCS: 36415; 70450-TC; 71045-TC-FY; 71250-TC; 80048; 80053; 81003; 81015; 82272; 82550; 82728; 82803; 82962; 83036; 83605; 83735; 83880; 84443; 84484; 85025; 85027; 85610; 85730; 87040; 87086; 87804; 87899; 93005; 93010; 93306-TC; 94640; 94660; 97116-GP; 97161-GP; 99285-25; J0131; J7030

== ENCOUNTER 2019-02-07 10:09 | Emergency (ER) | payer OTHER ==
[2019-02-07 10:25] VITALS: TEMP 97.5; BMI 18.8
--- NOTE | 2019-02-07 11:23 | PDOC ---
History of Present Illness - General Chief Complaint: Nasal Bleeding Stated Complaint: NASAL BLEED Time Seen by Provider: 02/07/19 10:58 History Source: Patient, Family Exam Limitations: No Limitations, Language Barrier - History of Present Illness Initial Comments: Keely Babcock is an 88 yo F w a hx of afib on elliquis, aortic valve replacement , HTN, HLD, CVA, left breast cx s/p mastectomy, and osteoarthritis who presents to the [facility] er because she experienced two episodes of epistaxis this morning. Her nurses aid has pictures of her bed which show that she bled on her sheet and pillow. The son is here who helps with translation who states that her bleeding stopped this morning prior to coming to the ER. Here in the ER she is asymptomatic and not actively bleeding. Patient admits to frequent nose picking which is what she believes is what prompted her nasal discharge. Denies having a headache, nausea, vomiting, or blurry vision. PCP: Terrance See PSH: Mastectomy (left), Valve Replacement (aortic (procine)) Social hx: Has nursing aid with her at home. Denies smoking, drinking, or other substance usage Allergies: NKA, NKDA Past History - Past Medical History Allergies/Adverse Reactions: Allergies Allergy/AdvReac Type Severity Reaction Status Date / Time No Known Allergies Allergy Verified 02/26/18 16:27 Home Medications: Ambulatory Orders Atorvastatin Ca [Lipitor] 20 mg PO HS 01/26/18 Metoprolol Tartrate [Lopressor -] 50 mg PO BID tablet 01/28/18 levETIRAcetam [Keppra -] 500 mg PO BID tablet 01/28/18 Amox-Tr/K Cl [Augmentin 875-125mg Tablet -] 1 tab PO BID@0800,1730 3 Days #6 tablet 03/05/18 Apixaban [Eliquis -] 2.5 mg PO BID #60 tablet 03/05/18 Diltiazem Cd [Cardizem Cd -] 240 mg PO DAILY #30 cap.cd.24h 03/05/18 Docusate Sodium [Colace -] 100 mg PO BID #60 capsule 03/05/18 Furosemide [Lasix -] 40 mg PO DAILY #30 tablet 03/05/18 Ranitidine [Zantac -] 150 mg PO DAILY #30 tablet 03/05/18 Spironolactone [Aldactone -] 25 mg PO DAILY #30 tablet 03/05/18 Cancer: (left breast ca) Cardiac Disorders: Yes (afib) COPD: No HTN: Yes Hypercholesterolemia: Yes - Surgical History Cardiac Surgery: Yes (aortic valve replacement) - Immunization History Immunization Up to Date: Yes - Psycho Social/Smoking Cessation Hx Smoking History: Never smoked Have you smoked in the past 12 months: No Information on smoking cessation initiated: No Hx Alcohol Use: No Drug/Substance Use Hx: No Substance Use Type: None Hx Substance Use Treatment: No Review of Systems - Review of Systems Able to Perform ROS?: Yes Comments:: CONSTITUTIONAL: Absent: fever, no chills, no fatigue EYES: Absent: visual changes ENT: Present: Epistaxis Absent: ear pain, no sore throat CARDIOVASCULAR: Absent: chest pain, no palpitations RESPIRATORY: Absent: cough, no SOB GI: Absent: abdominal pain, no nausea, no vomiting, no constipation, no diarrhea GENITOURINARY: Absent: dysuria, no frequency, no hematuria MUSKULOSKELETAL: Absent: back pain, no arthralgia, no myalgia SKIN: Absent: rash NEURO: Absent: headache *Physical Exam - Vital Signs Last Vital Signs Temp Pulse Resp BP Pulse Ox 97.5 F L 84 17 140/64 97 02/07/19 10:21 02/07/19 10:21 02/07/19 10:21 02/07/19 10:21 02/07/19 10:21 - Physical Exam GENERAL: Well-appearing, well-nourished. No apparent distress. HEENT: There is mild dry blood arond the right nares. No active bleed. Normocephalic, atraumatic. PERRL, EOM intact. CARDIOVASCULAR: Normal S1, S2. Regular rate and rhythm. PULMONARY: No evidence of respiratory distress. Lungs clear to auscultation bilaterally. No wheezing, rales or rhonchi. ABDOMEN: Soft, non-distended, non-tender. EXTREMITIES: Normal ROM in all four extremities. No gross deformities. SKIN: Warm, dry. No rash NEUROLOGICAL: No focal neurological deficits. ED Treatment Course - LABORATORY CBC & Chemistry Diagram: 02/07/19 11:00 02/07/19 10:58 Medical Decision Making - Medical Decision Making Keely Babcock is an 88 yo F w a hx of afib on elliquis, aortic valve replacement , HTN, HLD, CVA, left breast cx s/p mastectomy, and osteoarthritis who presents to the [facility] er because she experienced two episodes of epistaxis this morning. Her nurses aid has pictures of her bed which show that she bled on her sheet and pillow. The son is here who helps with translation who states that her bleeding stopped this morning prior to coming to the ER. Here in the ER she is asymptomatic and not actively bleeding. Patient admits to frequent nose picking which is what she believes is what prompted her nasal discharge. Denies having a headache, nausea, vomiting, or blurry vision. Vital Signs Temp Pulse Resp BP Pulse Ox 97.5 F L 84 17 140/64 97 02/07/19 10:21 02/07/19 10:21 02/07/19 10:21 02/07/19 10:21 02/07/19 10:21 DDx IBNLT: Nasal bleed - anterior vs posterior, electrolyte/metabolic disturbance, thrombocytopenia, anemia Plan: Labs, re-assess. Labs: Elevated BUN - Will hydrate MDM: Patient is not bleeding here in the ER. She is hemodynamically stable and her bloodwork is unremarkable Dispo: Home with PCP fu Discharge - Discharge Information Problems reviewed: Yes Clinical Impression/Diagnosis: Epistaxis Condition: Stable Disposition: HOME - Admission No - Follow up/Referral Referrals: Terrance See MD [Primary Care Provider] - - Patient Discharge Instructions Patient Printed Discharge Instructions: Nosebleed Additional Instructions: your blood work today is normal with hemoglobin of 12.5. your bleeding has stopped. for re bleeding, hold pressure for 5 min. you can spray Afrin nasal spray on a guaze and put in the nose with pressure to aid in stopping the bleeding. you should also put bacitracin or vaseline in the right nare in the evening to prevent scratching and rebleeding. also helps to put a humidifier in the patients room. Print Language: [email or web address] - Post Discharge Activity
[2019-02-07 11:29] LABS: BASO % 0.7 % (0-2.0); EOS % 0.9 % (0-4.5); HEMATOCRIT 38.6 % (32.4-45.2); HEMOGLOBIN 12.5 GM/dL (10.7-15.3); LYMPH % 22.8 % (8-40); MCH 27.1 pg (25.7-33.7); MCHC 32.4 g/dl (32.0-36.0); MEAN CELL VOLUME 83.6 fl (80-96); MONO % 8.5 % (3.8-10.2); NEUT % 67.1 % (42.8-82.8); PLATELET COUNT 137 K/MM3 (134-434); RBC 4.62 M/mm3 (3.60-5.2); RDW 15.7 % (11.6-15.6); WHITE BLOOD COUNT 9.2 K/mm3 (4.0-10.0)
[2019-02-07 11:51] LABS: ALBUMIN 2.8 g/dl (3.4-5.0); BILIRUBIN,TOTAL 0.2 mg/dL (0.2-1); BLOOD UREA NITROGEN 34.1 mg/dL (7-18); CALCIUM 8.5 mg/dL (8.5-10.1); CREATININE 0.9 mg/dL (0.55-1.3); POTASSIUM 4.1 mmol/L (3.5-5.1); TOT PROT 6.3 g/dl (6.4-8.2)
[2019-02-07] MEDS ORDERED: SODIUM CHLORIDE 0.9% 500 ML INFUS.BAG IV ONE (12:04)
[2019-02-07 12:09] LABS: INR 1.34 (0.83-1.09); PROTHROMBIN TIME (PATIENT) 15.9 SEC (9.7-13.0)
[2019-02-07 12:11] LABS: ACTIVATED PTT 31.2 SECONDS (25.2-36.5)
[2019-02-07 13:34] VITALS: BP 135/60; PULSE 78
--- NOTE | 2019-02-07 18:48 | PDOC ---
Attending Attestation - Resident Resident Name: Daniel Duenas - ED Attending Attestation I have performed the following: I have examined & evaluated the patient, The case was reviewed & discussed with the resident, I agree w/resident's findings & plan, Exceptions are as noted - HPI HPI: 02/07/19 18:45 88-year-old female history of aortic valve replacement hypertension hyperlipidemia on Eliquis here today complaining of a right-sided nosebleed. Patient states it had started last evening and has been bleeding intermittently. On arrival to the ED the bleeding has spontaneously stopped however she feels that she did lose a lot of blood in her bed during the time of bleeding. Denies feeling lightheaded no nausea no vomiting no chest pain no shortness of breath no history of similar bleeding episodes in the past - Physicial Exam PE: 02/07/19 18:46 Awake alert no acute distress patient's right nare has crusted blood there is no signs of active bleeding. The posterior pharynx is normal lungs are clear bilaterally heart is regular 30 murmurs rubs or gallops abdomen is soft and nontender extremities are warm and well-perfused there is no edema no calf tenderness - Medical Decision Making 02/07/19 18:46 88-year-old female currently on blood thinners here complaining of epistaxis. On arrival to ED patient's epistaxis has resolved baseline CBC CMP will be obtained to rule out any subsequent anemia H&H is stable with a hemoglobin of 12.5 patient will be discharged home was told to place bacitracin in the nares and use a humidifier and to follow-up with her primary doctor for repeat bleeding she was told to use Afrin soaked gauze and pressure for 5 minutes if not resolved to return to the ED immediately for repeat evaluation
== END 2019-02-07 13:34 | disposition home or self-care (01) ==
LOC: JER 10:09
DX: R04.0 Epistaxis (principal); I10 Essential (primary) hypertension; I48.91 Unspecified atrial fibrillation; Z79.01 Long term (current) use of anticoagulants; E78.5 Hyperlipidemia, unspecified; E78.00 Pure hypercholesterolemia, unspecified; Z95.4 Presence of other heart-valve replacement; Z86.73 Personal history of transient ischemic attack (TIA), and cerebral infarction without residual deficits; Z85.3 Personal history of malignant neoplasm of breast; Z90.12 Acquired absence of left breast and nipple
CPT/HCPCS: 36415; 80053; 85025; 85610; 85730; 86850; 86900; 86901; 99282-25